=== PATIENT | male | born 1965 | race Two or more races ===

== ENCOUNTER 2019-09-09 10:33 | Emergency (ER) | payer MEDICAID, OTHER ==
[~2019-09-09] VITALS: Ht 165.1 cm; Wt 80.7 kg
[2019-09-09 11:33] LABS: Urine Bacteria NONE SEEN /hpf (None Seen); Urine Blood Negative /uL (Negative); Urine WBC <1 /hpf (0 - 3)
[2019-09-09 11:34] LABS: Basophils # (auto) 0 uL; Basophils % (auto) 0.6 % (0.0-2.0); Eosinophils # (auto) 0 uL; Eosinophils % (auto) 0.8 % (0.0-7.0); Hematocrit 45.3 % (41.0-53.0); Hemoglobin 15.5 g/dL (13.5-17.5); Lymphocytes # (auto) 1.8 uL; Mean Corpuscular Hemoglobin 30.8 pg (28.0-32.0); Mean Corpuscular Hgb Conc. 34.3 g/dL (32.0-36.0); Monocytes # (auto) 0.3 uL; Monocytes % (auto) 6.3 % (0.0-12.0); Neutrophils # (auto) 3.3 uL; Neutrophils % (auto) 59.3 % (37.0-80.0); Platelet Count (auto) 197 10^3/uL (140-450); Red Blood Cells 5.03 10^6/uL (4.5-5.90); Red Cell Distribution Width 13.9 % (11.8-14.3); White Blood Cell 5.6 10^3/uL (4.4-10.8)
[2019-09-09 11:48] LABS: Albumin 3.7 g/dL (3.4-5.0); Calcium 8.3 mg/dL (8.5-10.1); Potassium 4.1 mmol/L (3.5-5.1)
[2019-09-09 11:52] LABS: Bilirubin, Total 0.4 mg/dL (0.2-1.0); Total Protein 8.2 g/dL (6.4-8.2)
[2019-09-09] MEDS ORDERED: SODIUM CHLORIDE 0.9% 1,000 ML IV ONE (11:58)
[2019-09-09] MEDS ORDERED: InsuLIN REG 1unit/0.01ml Soln (100units/ml) IV ONE ×2 (12:00→15:30)
[2019-09-09 16:35] VITALS: BP 121/82
== END 2019-09-09 16:42 | disposition home or self-care (01) ==
LOC: ER 10:33
DX: E11.65 Type 2 diabetes mellitus with hyperglycemia (principal)
CPT/HCPCS: 36415; 80053; 81001; 82010; 82962; 85025; 96361; 96374; 99283; J1815; J7030

== ENCOUNTER 2019-11-05 14:42 | Emergency (ER) | payer MEDICAID ==
[~2019-11-05] VITALS: Ht 167.6 cm; Wt 81.6 kg
[2019-11-05 16:20] LABS: Urine Bacteria NONE SEEN /hpf (None Seen); Urine Blood Negative /uL (Negative); Urine Specific Gravity 1.034 (1.001-1.035); Urine WBC <1 /hpf (0 - 3)
[2019-11-05] MEDS ORDERED: InsuLIN REG 1unit/0.01ml Soln (100units/ml) IV ONE ×2 (16:30→19:00)
[2019-11-05 17:06] LABS: Basophils # (auto) 0.1 uL; Basophils % (auto) 0.9 % (0.0-2.0); Eosinophils # (auto) 0 uL; Eosinophils % (auto) 0.7 % (0.0-7.0); Hematocrit 47.2 % (41.0-53.0); Lymphocytes # (auto) 2.4 uL; Lymphocytes % (auto) 38.2 % (10.0-50.0); Mean Corpuscular Hemoglobin 30.3 pg (28.0-32.0); Mean Corpuscular Hgb Conc. 33.9 g/dL (32.0-36.0); Mean Corpuscular Volume 89.4 fL (80.0-100.0); Monocytes # (auto) 0.4 uL; Monocytes % (auto) 6.8 % (0.0-12.0); Neutrophils # (auto) 3.4 uL; Neutrophils % (auto) 53.4 % (37.0-80.0); Nucleated Red Blood Cells % 0.1 %; Platelet Count (auto) 197 10^3/uL (140-450); Red Blood Cells 5.28 10^6/uL (4.5-5.90); Red Cell Distribution Width 14.1 % (11.8-14.3); White Blood Cell 6.3 10^3/uL (4.4-10.8)
[2019-11-05 17:27] LABS: Alanine Aminotransferase 43 U/L (16-61); Albumin 3.8 g/dL (3.4-5.0); Anion Gap 10 (5-15); Aspartate Aminotransferase 26 U/L (15-37); BUN/Creatinine Ratio 14.2; Blood Urea Nitrogen 16 mg/dL (7-18); Calcium 8.9 mg/dL (8.5-10.1); Carbon Dioxide 25 mmol/L (21-32); Chloride 99 mmol/L (98-107); GFR African American 87 mL/min; GFR Non-African American 72 mL/min; Glucose 381 mg/dL (74-106); Potassium 4.1 mmol/L (3.5-5.1); Sodium 134 mmol/L (136-145)
[2019-11-05 17:30] LABS: Alkaline Phosphatase 168 U/L (45-117); Bilirubin, Total 0.3 mg/dL (0.2-1.0); Total Protein 8.6 g/dL (6.4-8.2)
[2019-11-05] MEDS: SODIUM CHLORIDE 0.9% 1,000 ML IV ONE (21:55)
[2019-11-05] MEDS: InsuLIN REG 1unit/0.01ml Soln (100units/ml) IV ONE (21:55)
[2019-11-05 23:00] VITALS: BP 130/82
== END 2019-11-05 23:34 | disposition home or self-care (01) ==
LOC: ER 14:42
DX: E11.65 Type 2 diabetes mellitus with hyperglycemia (principal); N48.1 Balanitis
CPT/HCPCS: 36415; 80053; 81001; 82010; 82962; 85025; 96361; 96374; 99283; J1815

== ENCOUNTER 2021-03-11 07:55 | Emergency (ER) | payer MEDICAID ==
[~2021-03-11] VITALS: Ht 167.6 cm; Wt 77.1 kg
[2021-03-11] MEDS ORDERED: KETOROLAC TROMETH 60MG/2ML VIAL IM ONE (09:45)
[2021-03-11 09:52] VITALS: BP 135/83
== END 2021-03-11 09:53 | disposition home or self-care (01) ==
LOC: ER 07:55
DX: M47.892 Other spondylosis, cervical region (principal); M54.12 Radiculopathy, cervical region; E11.9 Type 2 diabetes mellitus without complications
CPT/HCPCS: 72040; 93005; 96372; 99283; J1885

== ENCOUNTER 2024-08-05 10:00 | Emergency (ER) | payer MEDICAID ==
[~2024-08-05] VITALS: Ht 175.3 cm; Wt 73.0 kg
[2024-08-05 10:30] VITALS: PULSE 105; RESP 17; O2SAT 98
[2024-08-05] MEDS: cloNIDine HCL 0.1 MG TAB PO ONE (10:33)
[2024-08-05 11:00] LABS: Basophils # (auto) 0.1 10 ^3/uL (0-0.2); Basophils % (auto) 0.8 % (0.0-2.0); Eosinophils # (auto) 0.1 10 ^3/uL (0-0.8); Eosinophils % (auto) 1.8 % (0.0-7.0); Hematocrit 34.4 % (41.0-53.0); Hemoglobin 11.6 g/dL (13.5-17.5); Lymphocytes # (auto) 1.2 10 ^3/uL (0.4-5.4); Lymphocytes % (auto) 18.7 % (10.0-50.0); Mean Corpuscular Hemoglobin 29.7 pg (28.0-32.0); Mean Corpuscular Hgb Conc. 33.7 g/dL (32.0-36.0); Mean Corpuscular Volume 88.3 fL (80.0-100.0); Monocytes # (auto) 0.5 10 ^3/uL (0-1.3); Monocytes % (auto) 7.7 % (0.0-12.0); Neutrophils # (auto) 4.6 10 ^3/uL (1.6-8.6); Platelet Count (auto) 280 10^3/uL (140-450); Red Blood Cells 3.89 10^6/uL (4.5-5.90); Red Cell Distribution Width 14.4 % (11.8-14.3); White Blood Cell 6.5 10^3/uL (4.4-10.8)
[2024-08-05 11:10] LABS: Alanine Aminotransferase 29 U/L (7-40); Albumin 3.8 g/dL (3.2-4.8); Alkaline Phosphatase 112 U/L (46-116); Anion Gap 7 (5-15); Aspartate Aminotransferase 31 U/L (13-40); BUN/Creatinine Ratio 16.8 (10.0-20.0); Blood Urea Nitrogen 32 mg/dL (9-23); Calcium 9.7 mg/dL (8.7-10.4); Carbon Dioxide 27 mmol/L (20-31); Chloride 105 mmol/L (98-107); Glucose 113 mg/dL (74-106); Potassium 4.9 mmol/L (3.5-5.1); Sodium 139 mmol/L (136-145)
[2024-08-05 11:11] LABS: Bilirubin, Total 0.4 mg/dL (0.2-1.0)
[2024-08-05 11:21] VITALS: TEMP 98
[2024-08-05 13:08] LABS: Urine Bacteria None Seen /hpf (None Seen)
[2024-08-05 13:26] LABS: Urine Blood 2+ /uL (Negative); Urine Clarity Clear (Clear); Urine Color Light-Yellow (Yellow); Urine Hyaline Cast FEW /lpf (0 - 2); Urine Protein, UAD 3+ (Negative); Urine Specific Gravity 1.017 (1.001-1.035); Urine Urobilinogen Normal (Negative); Urine WBC <1 /hpf (0 - 3); Urine pH 6.5 (5.0-9.0)
[2024-08-05] MEDS: ACETAMINOPHEN 325 MG TAB PO ONE (13:27)
[2024-08-05 14:08] VITALS: PULSE 72; RESP 15; O2SAT 96
[2024-08-05 16:43] VITALS: BP 147/88; PULSE 77; RESP 14; O2SAT 98
== END 2024-08-05 16:42 | disposition home or self-care (01) ==
LOC: ER 10:00
DX: M54.2 Cervicalgia (principal); R60.0 Localized edema; M79.602 Pain in left arm; M79.89 Other specified soft tissue disorders; E11.9 Type 2 diabetes mellitus without complications; M19.90 Unspecified osteoarthritis, unspecified site; R06.02 Shortness of breath
CPT/HCPCS: 36415; 71045; 80053; 81001; 82962; 83880; 84484; 85025; 93005; 93971

== ENCOUNTER 2024-08-16 15:18 | Inpatient (IN) | payer MEDICAID ==
[~2024-08-16] VITALS: Ht 165.1 cm; Wt 67.9 kg
[~2024-08-16 15:18] MED LIST: AMLO1TAB23 PO; CARB25TA79 PO; DAPA1TAB4 PO; ERGO1CAP12 PO; LIDO1PAD55 TOP; SELE5TAB8 PO; SEMA2INJ3 SC; SITA50TA PO
--- NOTE | 2024-08-16 15:43 | ED.PDOC ---
History of Present Illness HPI Comments 59 y.o male with PMH of DM and HTN, presents to the ED for a chief complaint of generalized weakness associated with chills and nausea that started 2-3 weeks ago. Patient reports for the past 3 nights, symptoms worsened, has not been able to sleep and is only able to move his left arm. Patient states he was seen at this ED 2 weeks ago for same complaint, but then had leg and foot swelling which was medicated for. Patient at this time denies any swelling, chest pain SOB, vomiting. Time Seen by MD: 15:31 Primary Care Provider: UNKNOWN Reviewed Notes: Nurses Notes, Medications, Allergies Allergies: Coded Allergies: NO KNOWN ALLERGIES (Unverified , 09/09/19) Information Source: Patient, Relative Mode of Arrival: Wheelchair Severity: Moderate Timing: Weeks Duration: Since onset Past Medical History PAST MEDICAL HISTORY: Arthritis, DM Surgical History: Denies all surgeries Family History Family History: Reviewed,noncontributory to illness, Family hx of DM Social History Smoker: Non-Smoker Alcohol: Denies ETOH Use Drugs: Denies Drug Use Lives In: Home Constitutional: reports: chills, weakness; denies: diaphoresis, fatigue, fever, malaise, sweats, others EENTM: denies: blurred vision, double vision, ear bleeding, ear discharge, ear drainage, ear pain, ear ringing, eye pain, eye redness, hearing loss, mouth pain, mouth swelling, nasal discharge, nose bleeding, nose congestion, nose pain, photophobia, tearing, throat pain, throat swelling, voice changes, others Cardiovascular: denies: chest pain, dizzy spells, diaphoresis, Dyspnea on exertion, edema, irregular heart beat, left arm pain, lightheadedness, palpitations, PND, syncope, others Gastrointestinal: reports: nausea; denies: abdomen distended, abdominal pain, blood streaked bowels, constipated, diarrhea, dysphagia, difficulty swallowing, hematemesis, melena, poor appetite, poor fluid intake, rectal bleeding, rectal pain, vomiting, others Genitourinary: denies: burning, dysuria, flank pain, frequency, hematuria, incontinence, penile discharge, penile sore, pain, testicle pain, testicle swelling, urgency, others Neurological: denies: dizziness, fainting, headache, left sided numbness, left sided weakness, numbness, paresthesia, pre-existing deficit, right sided numbness, right sided weakness, seizure, speech problems, tingling, tremors, weakness, others Musculoskeletal: denies: back pain, gout, joint pain, joint swelling, muscle pain, muscle stiffness, neck pain, others Integumetry: denies: bruises, change in color, change in hair/nails, dryness, laceration, lesions, lumps, rash, wounds, others Allergic/Immunocompromised: denies: Difficulty Healing, Frequent Infections, Hives, Itching, others Hematologic/Lymphatic: denies: anemia, blood clots, easy bleeding, easy bruising, swollen glands, others Endocrine: denies: excessive hunger, excessive sweating, excessive thirst, excessive urination, flushing, intolerance to cold, intolerance to heat, u nexplained weight gain, unexplained weight loss, others Psychiatric: denies: anxiety, bipolar disorder, depression, hopeless, panic disorder, schizophrenia, sleepless, suicidal, others All Other Systems: Reviewed and Negative Physical Exam General Appearance: Moderate Distress HEENT: Normal ENT Inspection, Pharynx Normal, TMs Normal Neck: Full Range of Motion, Non-Tender, Normal, Normal Inspection Respiratory: Chest Non-Tender, Lungs Clear, No Accessory Muscle Use, No Respiratory Distress, Normal Breath Sounds Cardiovascular: No Edema, No JVD, No Murmur, No Gallop, Normal Peripheral Pulses, Regular Rate/Rhythm Breast Exam: Deferred Gastrointestinal: No Organomegaly, Non Tender, No Pulsatile Mass, Normal Bowel Sounds, Soft Genitalia: Deferred Pelvic: Deferred Rectal: Deferred Extremities: No calf tenderness, Normal capillary refill, Normal inspection, Normal range of motion, Non-tender, No pedal edema Musculoskeletal : Apperance: Normal Neurologic: Alert, gut cleaner II-XII nml as Tested, No Motor Deficits, Normal Affect, Normal Mood, No Sensory Deficits Cerebellar Function: Normal Reflexes: Normal Skin: Dry, Normal Color, Warm Lymphatic: No Adenopathy Was a procedure done? Was a procedure done?: No Differential Dx Considerations may include: Dehydration, electrolyte imbalance X-Ray, Labs, Meds, VS Vital Signs Date Time Temp Pulse Resp B/P (MAP) Pulse Ox O2 Delivery O2 Flow Rate FiO2 08/16/24 18:52 83 16 166/93 08/16/24 18:51 83 16 166/93 (117) 98 11/8/24 16:47 98.8 88 17 146/84 (104) 98 98.8 08/16/24 16:47 88 18 98 Room Air 08/16/24 16:14 98.9 90 18 159/97 (117) 98 98.9 08/16/24 16:14 98.9 90 20 159/97 (117) 98 Lab Test 08/16/24 17:28 08/16/24 16:59 08/16/24 16:35 Range/Units Urine Color Light-yellow Yellow Urine Clarity Clear Clear Urine pH 6.0 5.0-9.0 Urine Specific [place] 1.016 1.001-1.035 Urine Protein 3+ H Negative Urine Ketones Negative Negative Urine Blood 2+ H Negative /uL Urine Nitrite Negative Negative Urine Bilirubin Negative Negative Urine Urobilinogen Normal Negative mg/dL Urine Leukocyte Esterase Negative Negative /uL Urine RBC 3 0 - 3 /hpf Urine WBC 1 0 - 3 /hpf Urine Squamous Epithelial Cells Few <5 /hpf Urine Bacteria None seen None Seen /hpf Urine Glucose 3+ H Normal mg/dL SARS-CoV-2 Antigen (Rapid) Negative NEGATIVE White Blood Count 5.3 4.4-10.8 10^3/uL Red Blood Count 3.63 L 4.5-5.90 10^6/uL Hemoglobin 10.9 L 13.5-17.5 g/dL Hematocrit 31.7 L 41.0-53.0 % Mean Corpuscular Volume 87.5 80.0-100.0 fL Mean Corpuscular Hemoglobin 30.2 28.0-32.0 pg Mean Corpuscular Hemoglobin Concent 34.5 32.0-36.0 g/dL Red Cell Distribution Width 14.5 H 11.8-14.3 % Platelet Count 279 140-450 10^3/uL Mean Platelet Volume 6.7 L 6.9-10.8 fL Neutrophils (%) (Auto) 63.3 37.0-80.0 % Lymphocytes (%) (Auto) 23.6 10.0-50.0 % Monocytes (%) (Auto) 10.5 0.0-12.0 % Eosinophils (%) (Auto) 1.8 0.0-7.0 % Basophils (%) (Auto) 0.8 0.0-2.0 % Neutrophils # (Auto) 3.4 1.6-8.6 10 ^3/uL Lymphocytes # (Auto) 1.3 0.4-5.4 10 ^3/uL Monocytes # (Auto) 0.6 0-1.3 10 ^3/uL Eosinophils # (Auto) 0.1 0-0.8 10 ^3/uL Basophils # (Auto) 0 0-0.2 10 ^3/uL Nucleated Red Blood Cells 0.1 % Sodium Level 137 136-145 mmol/L Potassium Level 4.3 3.5-5.1 mmol/L Chloride Level 103 98-107 mmol/L Carbon Dioxide Level 29 20-31 mmol/L Anion Gap 5 5-15 Blood Urea Nitrogen 36 H 9-23 mg/dL Creatinine 2.16 H 0.700-1.30 mg/dL Glomerular Filtration Rate Calc 34 >90 mL/min BUN/Creatinine Ratio 16.7 10.0-20.0 Serum Glucose 192 H 74-106 mg/dL Lactic Acid Level 0.9 0.4-2.0 mmol/L Calcium Level 9.2 8.7-10.4 mg/dL Current Medications Medications (Trade) Dose Ordered Sig/Nicol Route Start Time Stop Time Status Last Admin Ketorolac Tromethamine (Toradol Injection) 30 mg ONCE ONCE IV 08/16/24 16:15 08/16/24 16:16 DC 08/16/24 16:47 Ondansetron HCl (Zofran) 4 mg ONCE ONCE IV 08/16/24 16:15 08/16/24 16:16 DC 08/16/24 16:48 Morphine Sulfate 4 mg ONCE ONCE IV 08/16/24 18:45 08/16/24 18:46 DC 08/16/24 18:52 IV Hep-Lock was established The patient was given ketorolac 30 mg IV push for the pain The patient states that the pain has been persistent so the patient was given morphine 4 mg IV push The patient was also given Zofran 4 mg IV push The chemistry panel shows a BUN of 36 and the creatinine is 3.16 The lactic acid level is within normal limits The CBC shows anemia with a hemoglobin of 10.9 The urine test is negative The patient was being admitted at this time Images Reviewed?: Images reviewed and evaluated by me Time of 1ST Reevaluation: 15:40 Reevaluation 1ST: Unchanged Patient Education/Counseling: Diagnosis, Treatment, Prognosis Family Education/Counseling: Diagnosis, Treatment, Prognosis Departure 1 Departure Time of Disposition: 19:13 Impression: Primary Impression: Generalized weakness Disposition: 09 ADMITTED INPATIENT Admit to: Tele Condition: Fair Critical Care Note Critical Care Time?: No Stability Stability form required: Yes Unstable for transfer: Telemetry monitoring (Telemetry monitoring required), ED Physician Assesment (Clinical assesment) I personally scribed for RIAN AGUILAR MD ([email or web address]) on 08/16/24 at 15:43. Electronically submitted by Monique Rizo ([facility]). RIAN AGUILAR MD Aug 16, 2024 15:43
[2024-08-16] MEDS: KETOROLAC TROMETH 30 MG/ML 1ML VIAL IV ONE (16:47)
--- NOTE | 2024-08-16 16:47 | DVH ---
Exam: CT CT AB PEL WO CON-NO ORAL OR IV History: FLANK PAIN , NAUSEA Comparison Study: None available at time of dictation. TECHNIQUE: Multidetector CT of the abdomen was performed from lung bases to pubic symphysis. Imaging was performed without IV contrast. Axial, coronal and sagittal multiplanar reformats were obtained fr om the axial data set by the technologist. Radiation Dose Information: CT Dose: CTDI volume is 7.02 mGy. Dose-length product is 356.94 mGy*cm FINDINGS: Evaluation of solid organs is limited due to lack of intravenous contrast use. Findings: Lung Bases: No acute or significant lung base finding. Normal heart size. No pleural or pericardial effusion. Liver: The liver is normal in size. No focal lesions. Gallbladder and Biliary Tree: Unremarkable Spleen: Unremarkable Pancreas: The pancreas is grossly normal in appearance. Adrenal Glands: Unremarkable Kidneys: Kidneys are grossly normal without calculi or hydronephrosis. Bladder: Grossly unremarkable for degree of distention. Bowel: The stomach is grossly normal in appearance. Small bowel and colon are normal in caliber and d istribution. The appendix is not visualized; however, no secondary findings of acute appendicitis id entified. Ascites: Absent Lymphadenopathy: No mesenteric, retroperitoneal or periportal lymphadenopathy. Abdominal Wall and Mesentery: Unremarkable. Vasculature: The visualized abdominal aorta is normal in size and caliber. Evaluation of abdominal a nd pelvic vessels is limited due to lack of intravenous contrast. Pelvic Organs: Unremarkable Musculoskeletal: No aggressive focal bony lesions, acute fractures or dislocation. Soft tissues: Unremarkable IMPRESSION: 1. No findings to suggest bowel obstruction. 2. No nephrolithiasis or hydronephrosis. 3. No bladder calculi. Radiation optimization: All CT scans at this facility use at least one of these dose optimization te chniques: automated exposure control mA and/or kV adjustment per patient size (includes targeted exa ms where dose is matched to clinical indication) or iterative reconstruction. HS:Y
[2024-08-16] MEDS: ONDANSETRON HCL 4 MG/2 ML VIAL IV ONE (16:48)
[2024-08-16 17:01] LABS: Basophils # (auto) 0 10 ^3/uL (0-0.2); Basophils % (auto) 0.8 % (0.0-2.0); Eosinophils # (auto) 0.1 10 ^3/uL (0-0.8); Eosinophils % (auto) 1.8 % (0.0-7.0); Hematocrit 31.7 % (41.0-53.0); Hemoglobin 10.9 g/dL (13.5-17.5); Lymphocytes # (auto) 1.3 10 ^3/uL (0.4-5.4); Lymphocytes % (auto) 23.6 % (10.0-50.0); Mean Corpuscular Hemoglobin 30.2 pg (28.0-32.0); Mean Corpuscular Hgb Conc. 34.5 g/dL (32.0-36.0); Mean Corpuscular Volume 87.5 fL (80.0-100.0); Monocytes # (auto) 0.6 10 ^3/uL (0-1.3); Monocytes % (auto) 10.5 % (0.0-12.0); Neutrophils # (auto) 3.4 10 ^3/uL (1.6-8.6); Neutrophils % (auto) 63.3 % (37.0-80.0); Nucleated Red Blood Cells % 0.1 %; Platelet Count (auto) 279 10^3/uL (140-450); Red Blood Cells 3.63 10^6/uL (4.5-5.90); Red Cell Distribution Width 14.5 % (11.8-14.3); White Blood Cell 5.3 10^3/uL (4.4-10.8)
[2024-08-16 17:11] LABS: Chloride 103 mmol/L (98-107); Potassium 4.3 mmol/L (3.5-5.1); Sodium 137 mmol/L (136-145)
[2024-08-16 17:12] LABS: Anion Gap 5 (5-15); Carbon Dioxide 29 mmol/L (20-31)
[2024-08-16 17:13] LABS: Calcium 9.2 mg/dL (8.7-10.4)
[2024-08-16 17:17] LABS: Glucose 192 mg/dL (74-106)
[2024-08-16 17:18] LABS: BUN/Creatinine Ratio 16.7 (10.0-20.0); Blood Urea Nitrogen 36 mg/dL (9-23)
[2024-08-16 17:50] LABS: Urine Bacteria None Seen /hpf (None Seen)
[2024-08-16 18:07] LABS: Urine Blood 2+ /uL (Negative); Urine Clarity Clear (Clear); Urine Color Light-Yellow (Yellow); Urine Protein, UAD 3+ (Negative); Urine Specific Gravity 1.016 (1.001-1.035); Urine Urobilinogen Normal (Negative); Urine WBC 1 /hpf (0 - 3)
[2024-08-16 18:11] LABS: COVID19 ANTIGEN SOFIA FIA NEGATIVE (NEGATIVE)
[2024-08-16] MEDS: MORPHINE SULFATE 4 MG/ML SYR/VIAL IV ONE (18:52)
[2024-08-16 20:15] VITALS: BP 140/86; PULSE 75; RESP 17; TEMP 98.2; O2SAT 98
[2024-08-16] MEDS ORDERED: NITROGLYCERIN 0.4 MG SL TAB SL PRN (21:00)
[2024-08-16] MEDS ORDERED: MORPHINE SULFATE INJ 2 MG/ml SYRG IV PRN (21:00)
[2024-08-16] MEDS ORDERED: ONDANSETRON HCL 4 MG/2 ML VIAL IV PRN (21:00)
--- NOTE | 2024-08-16 21:44 | DVHHPRES ---
History of Present Illness Resident Creating Document: MEGHANA LOFTON RESIDENT History of Present Illness This is a 59 years old male with a past medical history of type 2 diabetes mellitus, hypertension, parkinsonism presented to the ED with a complaint of generalized weakness, neck pain and shoulder pain for last 3 weeks. Patient reports for the past 3 nights, symptoms worsened, has not been able to sleep and is only able to move his left arm and also complaining of chills and low-grade fever. The patient complains of bilateral leg swelling 1 week before this admission and took medications which resolve the swelling. He denies chest pain, shortness of breath, dizziness, diaphoresis, abdominal pain, nausea, vomiting or any change in bowel and bladder habit. Cardiovascular: HTN, hyperipidemia Past Medical History Hypertension, hyperlipidemia and parkinsonism Past Surgical History None Family History: None Smoke: No ALCOHOL: none Drugs: None Lives: with Family Review of Systems Review of Systems Review of system: Constitutional: No: Fever, Chills, Sweats, Weakness, Malaise, Other Eyes: No: Pain, Vision change, Conjunctivae inflammation, Eyelid inflammation, Other, Redness ENT: No: Ear pain, Ear discharge, Nose pain, Nose discharge, Nose congestion, Mouth pain, Mouth swelling, Throat pain, Throat swelling, Other Respiratory: Shortness of breath, improving No: Cough, Dry,Wheezing, Hemoptysis, Pleuritic Pain, Sputum, Wheezing, Other Cardiovascular: No: Chest Pain, Palpitations, Orthopnea, Paroxysmal Noc. Dyspnea, Edema, Lt Headedness, Other Gastrointestinal: No: Nausea, Vomiting, Abdominal Pain, Diarrhea, Constipation, Melena, Hematochezia, Other Musculoskeletal: No: other, neck pain, shoulder pain, arm pain, back pain, hand pain, leg pain, foot pain Neurological:; No: Weakness, Numbness, Incoordination, Change in speech, Confusion, Seizures Constitutional: Yes: Fever, Chills, Sweats, Weakness, Malaise, Other Respiratory: Cough Allergies: Coded Allergies: NO KNOWN ALLERGIES (Unverified , 09/09/19) Medications Current Medications Medications Dose Ordered Sig/Nicol Route Start Time Stop Time Status Last Admin Dose Admin Sodium Chloride 10 ml Q8HR IV 08/16/24 22:00 Acetaminophen 325 mg Q4HP PRN PO 08/16/24 21:00 Ondansetron HCl 4 mg Q4HP PRN IV 08/16/24 21:00 Nitroglycerin 0.4 mg Q5MINP PRN SL 08/16/24 21:00 Morphine Sulfate 2 mg Q30M PRN IV 08/16/24 21:00 Carbidopa/Levodopa 1 tab TID PO 08/16/24 22:00 UNV Amlodipine Besylate 10 mg DAILY PO 08/17/24 10:00 UNV Exam Vital Signs Vital Signs Date Time Temp Pulse Resp B/P (MAP) Pulse Ox O2 Delivery O2 Flow Rate FiO2 08/16/24 20:15 75 17 98 Room Air* 0 21 08/16/24 20:15 98.2 140/86 (104) 98.2 Exam Physical examination: General Appearance: Alert, Oriented X3, Cooperative, No acute distress HEENT: Atraumatic, PERRLA, EOMI, Mucous membrane moist/pink Respiratory: Clear to auscultation, Normal air movement Cardiovascular: Regular rate, Normal S1, Normal S2, No murmurs, no chest wall tenderness Abdominal: Normal bowel sounds, Soft, No tenderness, No hepatospenomegaly, No masses Extremities: Bilateral tremor, rigidity, pedal edema +, No clubbing, No cyanosis, Normal pulses, No tenderness/swelling Skin: No rashes, No breakdown, No significant lesion Neuro: Normal speech, Strength at 5/5 X4 ext, Normal tone, Sensation intact, grossly intact cranial nerves Psych/Mental Status: Mental status NL, Mood NL Labs/Xrays Labs Test 08/16/24 17:28 08/16/24 16:59 08/16/24 16:35 Range/Units Urine Color Light-yellow Yellow Urine Clarity Clear Clear Urine pH 6.0 5.0-9.0 Urine Specific [place] 1.016 1.001-1.035 Urine Protein 3+ H Negative Urine Ketones Negative Negative Urine Blood 2+ H Negative /uL Urine Nitrite Negative Negative Urine Bilirubin Negative Negative Urine Urobilinogen Normal Negative mg/dL Urine Leukocyte Esterase Negative Negative /uL Urine RBC 3 0 - 3 /hpf Urine WBC 1 0 - 3 /hpf Urine Squamous Epithelial Cells Few <5 /hpf Urine Bacteria None seen None Seen /hpf Urine Glucose 3+ H Normal mg/dL SARS-CoV-2 Antigen (Rapid) Negative NEGATIVE White Blood Count 5.3 4.4-10.8 10^3/uL Red Blood Count 3.63 L 4.5-5.90 10^6/uL Hemoglobin 10.9 L 13.5-17.5 g/dL Hematocrit 31.7 L 41.0-53.0 % Mean Corpuscular Volume 87.5 80.0-100.0 fL Mean Corpuscular Hemoglobin 30.2 28.0-32.0 pg Mean Corpuscular Hemoglobin Concent 34.5 32.0-36.0 g/dL Red Cell Distribution Width 14.5 H 11.8-14.3 % Platelet Count 279 140-450 10^3/uL Mean Platelet Volume 6.7 L 6.9-10.8 fL Neutrophils (%) (Auto) 63.3 37.0-80.0 % Lymphocytes (%) (Auto) 23.6 10.0-50.0 % Monocytes (%) (Auto) 10.5 0.0-12.0 % Eosinophils (%) (Auto) 1.8 0.0-7.0 % Basophils (%) (Auto) 0.8 0.0-2.0 % Neutrophils # (Auto) 3.4 1.6-8.6 10 ^3/uL Lymphocytes # (Auto) 1.3 0.4-5.4 10 ^3/uL Monocytes # (Auto) 0.6 0-1.3 10 ^3/uL Eosinophils # (Auto) 0.1 0-0.8 10 ^3/uL Basophils # (Auto) 0 0-0.2 10 ^3/uL Nucleated Red Blood Cells 0.1 % Sodium Level 137 136-145 mmol/L Potassium Level 4.3 3.5-5.1 mmol/L Chloride Level 103 98-107 mmol/L Carbon Dioxide Level 29 20-31 mmol/L Anion Gap 5 5-15 Blood Urea Nitrogen 36 H 9-23 mg/dL Creatinine 2.16 H 0.700-1.30 mg/dL Glomerular Filtration Rate Calc 34 >90 mL/min BUN/Creatinine Ratio 16.7 10.0-20.0 Serum Glucose 192 H 74-106 mg/dL Lactic Acid Level 0.9 0.4-2.0 mmol/L Calcium Level 9.2 8.7-10.4 mg/dL Assessment/Plan Assessment/Plan Assessment and plan: # Unspecified generalized weakness # Possible CKD stage 3 to diabetic nephropathy with questionable hematuria - Ordered U/S of the kidney - strict I&O - Avoid nephrotoxic medication - Consulted Nephrology. # Type 2 diabetes mellitus, hemoglobin A1c of 6.5 - Mild sliding scale of insulin # Hypertensive heart disease with possible chronic diastolic heart failure - [id number] mg p.o. daily -IV labetalol 5 mg q.2h p.r.n. - Ordered echo # History of parkinsonism - Continue home meds - Consulted Neurology # DVT prophylaxis - Heparin 5000 units sc b.i.d. Goal of care discussed with the patient for more than 20 minutes full code Plan of treatment discussed with Dr. Bennett Plan discussed with: Patient, Other My Orders Orders - MEGHANA LOFTON RESIDENT Procedure Category Date Status Time Code Status CODE 08/16/24 Transmitted 21:00 Renal DIET 08/17/24 Transmitted Standard(2gna,3gk,Lopho) Breakfast Sodium Chloride Lock PHA 08/16/24 In Process (Saline Lock Ns) 22:00 Oxygen Per Hour RT 08/16/24 Transmitted 21:00 Acetaminophen Tablet PHA 08/16/24 In Process (Tylenol Tablet) 21:00 Ondansetron Hcl PHA 08/16/24 In Process (Zofran) 21:00 Complete Blood Count LAB 08/17/24 Verified 04:00 Comprehensive LAB 08/17/24 Verified Metabolic Panel 04:00 Pt Request For Service PT 08/16/24 Logged 21:00 Echo 2d Mode Cardiac US 08/16/24 Logged DOP 21:00 Nitroglycerin PHA 08/16/24 In Process Sublingual (Ntrostat 21:00 Morphine Sulfate PHA 08/16/24 In Process Injection 21:00 Oxygen By Nasal RT 08/16/24 Transmitted Cannula 21:00 Stat Ekg For Chest BANDAR 08/16/24 In Process Pain 21:00 Notify Of Changes BANDAR 08/16/24 In Process From Base 21:00 Card Grinder Helper For BANDAR 08/16/24 In Process 24 Hours 21:00 Emergency Dysrhythmia BANDAR 08/16/24 In Process Protocol 21:00 Rhythm Strips Once BANDAR 08/16/24 In Process Every Shift 21:00 Hemoglobin A1c LAB 08/16/24 In Process 21:16 Thyroid Stimulating LAB 08/16/24 In Process Hormone 21:16 Vitamin B12 LAB 08/16/24 In Process 21:16 Vitamin D, 25-Hydroxy LAB 11/8/24 In Process 21:16 Admit ADMIT 08/16/24 Transmitted 21:30 Carbidopa W Levodopa PHA 08/16/24 Logged 25/100mg (Sinemet 2 22:00 Amlodipine Tablet PHA 08/17/24 Logged (Norvasc Tablet) 10:00 B-Type Natriuretic LAB 08/16/24 In Process Peptide 21:35 Drug Screen LAB 08/16/24 Logged 21:40 MEGHANA LOFTON RESIDENT Aug 16, 2024 21:44
[2024-08-16] MEDS: SODIUM CHLOR 0.9% PF (SALINE LOCK) 10ML VIAL/SYR IV SCH (22:00)
[2024-08-16] MEDS: CARBIDOPA W LEVODOPA 25/100mg TABLET PO SCH (22:34)
[2024-08-16] MEDS ORDERED: DEXTROSE (50%) 50ML SYRG IV PRN (22:45)
[2024-08-16 22:55] LABS: INR 1.03 (0.9-1.15); Partial Thromboplastin Time 27.6 SEC (24.5-34.5); Prothrombin Time 10.9 sec (9.3-11.8)
[2024-08-16 23:00] VITALS: BP 152/81; PULSE 78; RESP 17; TEMP 97.9; O2SAT 98
[2024-08-16 23:17] VITALS: PULSE 82; RESP 18; O2SAT 97
--- NOTE | 2024-08-16 23:21 | DVH ---
XY CHEST PORTABLE, HISTORY: chest pain COMPARISON: XY CHEST PORTABLE on DOS: 08/05/24 XY CHEST PORTABLE on DOS: 08/05/24 TECHNICAL DATA: 1 view of the chest was obtained. FINDINGS: Lines and tubes: None Cardiomediastinal silhouette: normal Pulmonary vasculature: normal Lung expansion: low Lung airspace: normal Lung interstitium: normal Pleura: normal Pneumothorax: no Bones: Unremarkable Other: no IMPRESSION: No acute intrathoracic abnormality.
[2024-08-16] MEDS: cloNIDine HCL 0.1 MG TAB PO ONE (23:39)
[2024-08-17] VITALS (9 sets, daily range): BP systolic 117–172; BP diastolic 50–92; PULSE 61–105; RESP 16–20; TEMP 97.7–98.7; O2SAT 94–99
--- NOTE | 2024-08-17 03:22 | DVH ---
Examination: MELANIE CLINICAL INDICATION: ;Possible CKD DIREAS;Reason for Exam: Portable;Portable;Modes of Transportation DITRANS2;How is patie nt transported? COMPARISON: None. TECHNIQUE: Transabdominal ultrasound was performed. FINDINGS: Right kidney measures 10.4 cm in length. Left kidney measures 9.24 cm in length. Both kidneys demonstrate normal morphology and cortical echogenicity, with no evidence of stones, mas ses or hydronephrosis. The urinary bladder is partially distended well and smooth in outline. No obvious mass or calculus within the urinary bladder. Pre-void volume is 89.64 mL. IMPRESSION: 1. No significant abnormality identified. 2. No renal or ureteric calculus or hydronephrosis. Electronically Signed 08/17/2024 03:14 Sangita Dong
[2024-08-17] MEDS ORDERED: ATE50T PO (05:38)
[2024-08-17] MEDS: InsuLIN REG 1unit/0.01ml Soln (100units/ml) SC SCH ×2 (05:57→16:00)
[2024-08-17] MEDS: ACCU-CHEK COMFORT CURVE STRIP VI SCH ×2 (05:57→17:24)
[2024-08-17 06:20] LABS: Basophils # (auto) 0 10 ^3/uL (0-0.2); Eosinophils # (auto) 0.2 10 ^3/uL (0-0.8); Eosinophils % (auto) 4.6 % (0.0-7.0); Hematocrit 30.5 % (41.0-53.0); Hemoglobin 10.4 g/dL (13.5-17.5); Lymphocytes # (auto) 1.6 10 ^3/uL (0.4-5.4); Mean Corpuscular Hgb Conc. 34.2 g/dL (32.0-36.0); Mean Corpuscular Volume 87.8 fL (80.0-100.0); Monocytes # (auto) 0.6 10 ^3/uL (0-1.3); Monocytes % (auto) 11.4 % (0.0-12.0); Neutrophils # (auto) 2.5 10 ^3/uL (1.6-8.6); Platelet Count (auto) 237 10^3/uL (140-450); Red Blood Cells 3.47 10^6/uL (4.5-5.90); Red Cell Distribution Width 14.6 % (11.8-14.3); White Blood Cell 4.9 10^3/uL (4.4-10.8)
[2024-08-17 06:35] LABS: Albumin 3.2 g/dL (3.2-4.8); Alkaline Phosphatase 77 U/L (46-116); Anion Gap 7 (5-15); Aspartate Aminotransferase 29 U/L (13-40); BUN/Creatinine Ratio 18.1 (10.0-20.0); Blood Urea Nitrogen 39 mg/dL (9-23); Calcium 8.9 mg/dL (8.7-10.4); Carbon Dioxide 28 mmol/L (20-31); Chloride 105 mmol/L (98-107); Glucose 113 mg/dL (74-106); Potassium 4.1 mmol/L (3.5-5.1); Sodium 140 mmol/L (136-145)
[2024-08-17 06:36] LABS: Bilirubin, Total 0.4 mg/dL (0.2-1.0); Total Protein 5.5 g/dL (5.7-8.2)
[2024-08-17 06:38] LABS: Alanine Aminotransferase < 9 U/L (7-40)
[2024-08-17] MEDS: amLODIPine BESYLATE 5 MG TAB PO SCH (08:36)
[2024-08-17] MEDS: HEPARIN SODIUM (PORCINE) 5000 UNITS/ML 1ML VIAL SC SCH (08:37)
[2024-08-17] MEDS: ACETAMINOPHEN 325 MG TAB PO PRN (08:50)
[2024-08-17] MEDS: LABETALOL HCL 20 MG/4 ML VL IV PRN (08:51)
--- NOTE | 2024-08-17 10:47 | DVH ---
EXAM: CT STROKE CTH HISTORY: Possible stroke. COMPARISON: None TECHNIQUE: Axial images were obtained and reformatted in coronal and sagittal planes. All CT scans at this medical facility are performed using dose modulation techniques as appropriate t o a performed exam including the following: Automated exposure control was utilized; adjustment of th e MA and/or KV according to patient size; and use of iterative reconstruction technique. CT Dose: CTDI volume is 64.39 mGy. Dose-length product is 1031.94 mGy*cm FINDINGS: Supratentorial Region: No evidence for large acute territorial ischemia. No intracranial hemorrhage is noted. Posterior Fossa: No acute abnormality. Brainstem: Unremarkable. Sellar/Suprasellar Region: Unremarkable. Ventricles, Cisterns, Sulci: Age-appropriate. Orbits: Unremarkable. Paranasal Sinuses: Unremarkable. Mastoid Air Cells: Unremarkable. Vasculature: Unremarkable. Bones/Soft Tissues: No acute abnormality. Other: None. IMPRESSION: 1. No acute intracranial process. The nurse in charge of the patient, Mildred was notified of findings on 08/17/2024 at approximately 10:40 a.m..
--- NOTE | 2024-08-17 10:54 | DVHINCON2 ---
Date of service: Aug 17, 2024 Referring Physician Reason for Consultation Acute kidney injury History of Present Illness Patient is 59-year-old male with past medical history of diabetes mellitus, Parkinson disease, chronic kidney disease stage 3 followed in my clinic and arthritis is admitted for generalized weakness associated with chills and nausea. On admission patient found to have elevated BUN creatinine nephrology is consulted for acute kidney injury Past Medical History PAST MEDICAL HISTORY: Arthritis, DM, Parkinson, chronic kidney disease stage IIIB followed my clinic Past Surgical History Surgical History: Denies all surgeries Allergies: Coded Allergies: NO KNOWN ALLERGIES (Unverified , 09/09/19) Home Meds Reported Medications Atenolol (TENORMIN TABLET) 50 Mg Tb, 1 TAB PO DAILY, #30 TAB 5 Refills 08/17/24 Current Medications Current Medications Medications (Trade) Dose Ordered Sig/Nicol Route PRN Reason Start Time Stop Time Status Last Admin Sodium Chloride (Saline Lock Ns) 10 ml Q8HR IV 08/16/24 22:00 08/17/24 05:58 Acetaminophen (Tylenol Tablet) 325 mg Q4HP PRN PO MILD PAIN (1-3 PAIN SCALE) 08/16/24 21:00 08/17/24 08:50 Ondansetron HCl (Zofran) 4 mg Q4HP PRN IV NAUSEA / VOMITING 08/16/24 21:00 Nitroglycerin (Ntrostat Sublingual) 0.4 mg Q5MINP PRN SL FOR CHEST PAIN 08/16/24 21:00 Morphine Sulfate 2 mg Q30M PRN IV FOR CHEST PAIN 08/16/24 21:00 Carbidopa/Levodopa (Sinemet 25/ 100MG) 1 tab TID PO 08/16/24 22:00 08/17/24 05:53 Amlodipine Besylate (Norvasc Tablet) 10 mg DAILY PO 08/17/24 10:00 08/17/24 08:36 Diagnostic Test (Pha) (Accu-Chek Comfort Curve T) 1 strip ACHS 08/17/24 07:00 08/17/24 11:24 Insulin Human Regular (InsuLIN R) ACHS SC 08/17/24 07:00 08/17/24 11:25 Dextrose 50 ml UD PRN IV Blood Sugar LESS THAN 60 08/16/24 22:45 Labetalol HCl (Labetalol HCl) 5 mg Q2HPRN PRN IV SBP>150 08/17/24 01:45 08/17/24 08:51 Heparin Sodium (Porcine) 5,000 units Q12HR SC 08/17/24 10:00 08/17/24 08:37 Atorvastatin Calcium (Lipitor) 40 mg HS PO 08/18/24 22:00 Aspirin (Ecotrin Enteric Coated Tablet) 81 mg DAILY PO 08/18/24 10:00 Review of Systems All 12 item review of systems reviewed with the patient nonsignificant except what is mentioned in the history of present illness in addition patient complain of pain and numbness in both hands H&P Exam Vital Signs/I&O Vital Sign Date Time Temp Pulse Resp B/P (MAP) Pulse Ox O2 Delivery O2 Flow Rate FiO2 08/17/24 08:51 74 150/88 08/17/24 08:33 98.4 20 98 98.4 08/17/24 08:00 Room Air* 0 21 Intake and Output 08/16/24 08/17/24 19:00 07:00 Intake Total 0 ml Output Total 0 ml Balance 0 ml Intake Oral 0 ml Output Urine Total 0 ml Physical Exam Patient is awake alert sitting up in the bed Lungs clear to auscultation bilaterally Cardiac exam regular rate and rhythm GI soft nontender normal Extremities no clubbing cyanosis or edema Neuro fine hand tremors at rest Labs/Diagnostic Data Labs/Diagnostic Data Laboratory Tests Test 08/17/24 10:59 08/17/24 05:56 08/17/24 05:43 08/17/24 05:16 Range/Units POC Glucose 186 H 118 H 70-106 mg/dl White Blood Count 4.9 4.4-10.8 10^3/uL Red Blood Count 3.47 L 4.5-5.90 10^6/uL Hemoglobin 10.4 L 13.5-17.5 g/dL Hematocrit 30.5 L 41.0-53.0 % Mean Corpuscular Volume 87.8 80.0-100.0 fL Mean Corpuscular Hemoglobin 30.0 28.0-32.0 pg Mean Corpuscular Hemoglobin Concent 34.2 32.0-36.0 g/dL Red Cell Distribution Width 14.6 H 11.8-14.3 % Platelet Count 237 140-450 10^3/uL Mean Platelet Volume 6.7 L 6.9-10.8 fL Neutrophils (%) (Auto) 51.0 37.0-80.0 % Lymphocytes (%) (Auto) 32.0 10.0-50.0 % Monocytes (%) (Auto) 11.4 0.0-12.0 % Eosinophils (%) (Auto) 4.6 0.0-7.0 % Basophils (%) (Auto) 1.0 0.0-2.0 % Neutrophils # (Auto) 2.5 1.6-8.6 10 ^3/uL Lymphocytes # (Auto) 1.6 0.4-5.4 10 ^3/uL Monocytes # (Auto) 0.6 0-1.3 10 ^3/uL Eosinophils # (Auto) 0.2 0-0.8 10 ^3/uL Basophils # (Auto) 0 0-0.2 10 ^3/uL Nucleated Red Blood Cells 0.0 % Sodium Level 140 136-145 mmol/L Potassium Level 4.1 3.5-5.1 mmol/L Chloride Level 105 98-107 mmol/L Carbon Dioxide Level 28 20-31 mmol/L Anion Gap 7 5-15 Blood Urea Nitrogen 39 H 9-23 mg/dL Creatinine 2.15 H 0.700-1.30 mg/dL Glomerular Filtration Rate Calc 35 >90 mL/min BUN/Creatinine Ratio 18.1 10.0-20.0 Serum Glucose 113 H 74-106 mg/dL Calcium Level 8.9 8.7-10.4 mg/dL Phosphorus Level 4.2 2.4-5.1 mg/dL Magnesium Level 2.2 1.6-2.6 mg/dL Total Bilirubin 0.4 0.2-1.0 mg/dL Aspartate Amino Transferase (AST) 29 13-40 U/L Alanine Aminotransferase (ALT) < 9 7-40 U/L Alkaline Phosphatase 77 46-116 U/L Total Protein 5.5 L 5.7-8.2 g/dL Albumin 3.2 3.2-4.8 g/dL Test 08/16/24 22:20 08/16/24 17:28 08/16/24 16:59 08/16/24 16:35 Range/Units Prothrombin Time 10.9 9.3-11.8 sec Prothrombin Time INR 1.03 0.9-1.15 Activated Partial Thromboplast Time 27.6 24.5-34.5 SEC Urine Color Light-yellow Yellow Urine Clarity Clear Clear Urine pH 6.0 5.0-9.0 Urine Specific [place] 1.016 1.001-1.035 Urine Protein 3+ H Negative Urine Ketones Negative Negative Urine Blood 2+ H Negative /uL Urine Nitrite Negative Negative Urine Bilirubin Negative Negative Urine Urobilinogen Normal Negative mg/dL Urine Leukocyte Esterase Negative Negative /uL Urine RBC 3 0 - 3 /hpf Urine WBC 1 0 - 3 /hpf Urine Squamous Epithelial Cells Few <5 /hpf Urine Bacteria None seen None Seen /hpf Urine Glucose 3+ H Normal mg/dL SARS-CoV-2 Antigen (Rapid) Negative NEGATIVE White Blood Count 5.3 4.4-10.8 10^3/uL Red Blood Count 3.63 L 4.5-5.90 10^6/uL Hemoglobin 10.9 L 13.5-17.5 g/dL Hematocrit 31.7 L 41.0-53.0 % Mean Corpuscular Volume 87.5 80.0-100.0 fL Mean Corpuscular Hemoglobin 30.2 28.0-32.0 pg Mean Corpuscular Hemoglobin Concent 34.5 32.0-36.0 g/dL Red Cell Distribution Width 14.5 H 11.8-14.3 % Platelet Count 279 140-450 10^3/uL Mean Platelet Volume 6.7 L 6.9-10.8 fL Neutrophils (%) (Auto) 63.3 37.0-80.0 % Lymphocytes (%) (Auto) 23.6 10.0-50.0 % Monocytes (%) (Auto) 10.5 0.0-12.0 % Eosinophils (%) (Auto) 1.8 0.0-7.0 % Basophils (%) (Auto) 0.8 0.0-2.0 % Neutrophils # (Auto) 3.4 1.6-8.6 10 ^3/uL Lymphocytes # (Auto) 1.3 0.4-5.4 10 ^3/uL Monocytes # (Auto) 0.6 0-1.3 10 ^3/uL Eosinophils # (Auto) 0.1 0-0.8 10 ^3/uL Basophils # (Auto) 0 0-0.2 10 ^3/uL Nucleated Red Blood Cells 0.1 % Sodium Level 137 136-145 mmol/L Potassium Level 4.3 3.5-5.1 mmol/L Chloride Level 103 98-107 mmol/L Carbon Dioxide Level 29 20-31 mmol/L Anion Gap 5 5-15 Blood Urea Nitrogen 36 H 9-23 mg/dL Creatinine 2.16 H 0.700-1.30 mg/dL Glomerular Filtration Rate Calc 34 >90 mL/min BUN/Creatinine Ratio 16.7 10.0-20.0 Serum Glucose 192 H 74-106 mg/dL Hemoglobin A1c 6.5 H <5.7 % A1C Lactic Acid Level 0.9 0.4-2.0 mmol/L Calcium Level 9.2 8.7-10.4 mg/dL B-Type Natriuretic Peptide 9.47 0-100 pg/mL Vitamin B12 Level 382 211-911 pg/mL Vitamin D 25-Hydroxy 65.5 30.0-100 ng/mL Thyroid Stimulating Hormone (TSH) 2.69 0.55-4.78 uIU/mL Assessment Acute kidney injury superimposed Chronic Kidney Disease secondary hemodynamic mediated Chronic kidney disease stage IIIB followed in my clinic Nephrotic syndrome possible diabetic nephropathy versus others Patient has multiple symptoms Parkinson's syndrome Diabetes mellitus type 2 Hypertension Anemia of chronic kidney disease Recommendations Closely monitor fluid and electrolytes Avoid nephrotoxic medications Strict I&Os Check urine electrolytes and urine protein excretion Kidney ultrasound reported WNL Blood pressure control Insulin sliding scale Scheduled kidney biopsy for elevation of nephrotic syndrome suspect Fabry's disease We will continue to follow Patient seen and examined by myself I discussed my plan of care with the patient and primary nurse at the bedside I would like to thank Dr. Márquez for the consult, will follow up Plan discussed with: Patient LAURE TOLEDO MD Aug 17, 2024 10:54
[2024-08-17 11:17] LABS: Magnesium 2.2 mg/dL (1.6-2.6)
[2024-08-17 11:18] LABS: Phosphorus 4.2 mg/dL (2.4-5.1)
[2024-08-17] MEDS: ATORVASTATIN 20 MG TAB PO ONE (11:24)
[2024-08-17] MEDS: ASPirin-EC 81 mg tab PO ONE (11:24)
--- NOTE | 2024-08-17 12:58 | DVH ---
Bilateral lower extremity venous duplex Clinical History: r/o dvt Comparison: US RT LOWER DVT on DOS: 08/05/24, US RT UPPER DVT on DOS: 08/05/24 Technique: Duplex Doppler evaluation of the deep venous systems of both lower extremities from the common femora l veins to the popliteal veins including color Doppler and spectral/pulsed waveform analysis was perf ormed. Findings: RIGHT SIDE: The common femoral vein demonstrates appropriate compressibility and waveform variability . There is compressibility/patency of the great saphenous vein at the proximal thigh . The femoral vein demonstrates appropriate compressibility and waveform variability . The deep femoral vein demonstrates appropriate compressibility and waveform variability . The popliteal vein demonstrates appropriate compressibility and waveform variability . There is color flow at the tibioperoneal trunk and in the posterior tibial vein. LEFT SIDE: The common femoral vein demonstrates appropriate compressibility and waveform variability . There is compressibility/patency of the great saphenous vein at the proximal thigh . The femoral vein demonstrates appropriate compressibility and waveform variability . The deep femoral vein demonstrates appropriate compressibility and waveform variability . The popliteal vein demonstrates appropriate compressibility and waveform variability . There is color flow at the tibioperoneal trunk and in the posterior tibial vein. Impression: 1. No right or left femoropopliteal venous thrombosis.
--- NOTE | 2024-08-17 13:07 | DVH ---
CAROTID DOPPLER ULTRASOUND HISTORY: R SIDE WEAK COMPARISON: None TECHNIQUE: Real time gonzalez scale, color Doppler, and spectral duplex images are obtained through the c arotid and vertebral arteries. Findings: Peak systolic velocity right internal carotid artery is 88 cm/s and right common carotid artery is 89 cm/s. Ratio is 1.0. Antegrade flow noted in right vertebral artery. No significant atherosclerotic p laque noted within the right carotid arterial system. Peak systolic velocity left internal carotid artery is 118 cm/s and left common carotid artery is 124 cm/s. Ratio is 1.0. Antegrade flow noted in left vertebral artery. No significant atherosclerotic pl aque noted within the left carotid arterial system. Impression: 1. No evidence of hemodynamically significant stenosis within the bilateral carotid arterial systems. 2. Antegrade flow within bilateral vertebral arteries. Stenosis ICA/CCA PSV ratio PSV 0-40% < 1.5 25-110 cm/s 40-59% < 1.8 > 120 cm/s 60-79% 1.8-3.7 > 130 cm/s 80-99% > 3.7 < 25 cm/s, > 250 cm/s
--- NOTE | 2024-08-17 14:19 | DVHSR ---
APPROVED REPORT EXAM: Two-dimensional and M-mode echocardiogram with Doppler and color Doppler. Blood Pressure: 150/88 mmHg INDICATION Chest Pain RISK FACTORS Height: 5' 5", Weight: 151 DIMENSIONS LVDd4.8 (3.8-5.7cm)LA (2D)3.7 (1.9-4.0cm)Aortic Root3.5 (2.0-3.7cm) LVDs3.4 (2.5-4.0cm)LA (MM) (1.9-4.0cm)Aortic Cusp Exc1.8 (1.5-2.0cm) EF (%) 55.0 (55-70%)Rt. Atrium3.1 (1.9-4.0cm)Asc. Aorta cm IVSd1.0 (0.7-1.1cm)RV (D) (1.8-2.4cm) PWd1.1 (0.7-1.1cm) Mitral Valve MitralMitral Stenosis E wave0.70m/sMV Mean GR.mmHg A wave0.70m/sMV Peak GR.mmHg E/A ratio1.02D MVAcm2 Aortic Valve Aortic ValveAortic Stenosis V10.80m/Samreen Mean GR.4mmHg V21.20m/Samreen Peak GR.6mmHg LVOT Diameter2.3 (1.8-2.4cm)Doppler AVA2.77cm2 Pulmonic Valve V20.80m/s Conclusion Normal left ventricular size and dimension. Normal left ventricular systolic function estimated ejec tion fraction 55%. There is a grade 1 diastolic dysfunction. Normal right ventricular size and dimension. Normal right ventricular systolic function. Normal biatrial size and dimension. Normal aortic valve structure and function. Normal mitral valve structure and function. Normal normal tricuspid valve structure and function. The pulmonary valve is grossly normal. No pericardial effusion.
--- NOTE | 2024-08-17 15:40 | DVHPNRES ---
Progress Note Date Seen: Aug 17, 2024 Resident Creating Document: LOBO DAVIS RESIDENT Medical Necessity Reason Pt with a Central, PICC or Fol: No Subjective Review of Systems Viet Ross is a 59-year-old male patient with PMHx of type 2 diabetes mellitus since 2007, hypertension, parkinsonism who presented to the ER with the complaint of generalized weakness and right-sided weakness along with right flank pain for the past 1 week. Patient was seen in the ER with similar complaints 2 weeks earlier, he reports feeling very tired and decreased strength in his hands. Says that he has been experiencing fever and chills for the past 2 days associated with nausea but no vomiting or abdominal pain. He denies constipation or diarrhea. Denies any history of fall or seizures or trauma. Patient denies any rash. He reports that he has been urinating a lot and that right abdomen under the ribs hurt. History taking was completed with the help of conference interpreter. Past medical history Type 2 diabetes mellitus since 2007, hypertension, parkinsonism Past surgical history Unremarkable Social history Lives with , can ambulate. Denies smoking, drinks socially, denies illicit drug use Allergic history Unremarkable Patient is seen and examined at bedside. Reports feeling weak and fatigued. Right upper and lower extremity motor weakness against resistance as compared to the left side. Right-sided costovertebral angle tenderness present. CT head completed which is unremarkable for acute intracranial pathology MRI in his pending. Carotid Doppler is unremarkable and lower extremity Doppler results unremarkable. Nephrology consulted for probable CKD. Objective vital signs Vital Sign Date Time Temp Pulse Resp B/P (MAP) Pulse Ox O2 Delivery O2 Flow Rate FiO2 08/17/24 13:03 98.4 82 20 138/73 (94) 98 98.4 08/17/24 08:00 Room Air* 0 21 Total Intake and Output 08/16/24 08/16/24 08/17/24 15:00 23:00 07:00 Intake Total 0 ml Output Total 0 ml Balance 0 ml medications Current Medications Medications Dose Ordered Sig/Nicol Route Start Time Stop Time Status Last Admin Dose Admin Sodium Chloride 10 ml Q8HR IV 08/16/24 22:00 08/17/24 13:47 10 ML Acetaminophen 325 mg Q4HP PRN PO 08/16/24 21:00 08/17/24 08:50 325 MG Ondansetron HCl 4 mg Q4HP PRN IV 08/16/24 21:00 Nitroglycerin 0.4 mg Q5MINP PRN SL 08/16/24 21:00 Morphine Sulfate 2 mg Q30M PRN IV 08/16/24 21:00 Carbidopa/Levodopa 1 tab TID PO 08/16/24 22:00 08/17/24 13:48 1 TAB Amlodipine Besylate 10 mg DAILY PO 08/17/24 10:00 08/17/24 08:36 10 MG Diagnostic Test (Pha) 1 strip ACHS 08/17/24 07:00 08/17/24 11:24 1 STRIP Insulin Human Regular ACHS SC 08/17/24 07:00 08/17/24 11:25 3 UNITS Dextrose 50 ml UD PRN IV 08/16/24 22:45 Labetalol HCl 5 mg Q2HPRN PRN IV 08/17/24 01:45 08/17/24 08:51 5 MG Heparin Sodium (Porcine) 5,000 units Q12HR SC 08/17/24 10:00 08/17/24 08:37 5,000 UNITS Atorvastatin Calcium 40 mg HS PO 08/18/24 22:00 Aspirin 81 mg DAILY PO 08/18/24 10:00 Examination Young male patient lying in bed, in no acute distress General: Afebrile, palor, mucosae are moist. Resting tremor noticed of the upper extremity. Cardiovascular: Regular S1 and S2. No murmurs, gallops or rubs. No JVD elevation. No pedal edema Respiratory: Normal B/L air entry on room air. Clear lung sounds on auscultation Abdomen: Soft, nontender, nondistended, normoactive bowel sounds, no rebound tenderness, no organomegaly, no masses. Right-sided costovertebral angle tenderness present. Genitourinary: Deferred MSK/skin: Mobilizes 4 limbs. Skin is dry and warm Neurological: Right upper and lower extremity have motor weakness against resistance, no sensory impairment. No facial asymmetry noticed. [id number] testing is normal. Psych/Mental Status: A/Ox4 laboratory and microbiology Laboratory Tests 08/17/24 05:16 Test 08/17/24 05:16 Range/Units Serum Glucose 113 H 74-106 mg/dL Labs and/or images reviewed: Labs reviewed by me, Image(s) reviewed by me Problem List/Assessment/Plan Problem List/Assessment/Plan Generalized weakness and right-sided weakness-rule out acute stroke CT head completed 08/17, unremarkable for acute intracranial pathology MRI brain pending Doppler ultrasound of the carotids is unremarkable Echocardiogram completed, normal LV size and dimension. LVEF 55 %. Grade 1 diastolic dysfunction. Normal structural heart. Neurologist consulted Started aspirin 81 mg and atorvastatin 40 mg daily MUMTAZ on likely CKD 3B Nephrotic syndrome possible diabetic nephropathy versus others - Rule out Fabry disease Creatinine 2.16 on arrival, GFR 34 Baseline creatinine 1.90, GFR 40 on 08/05/2024 Marshmallow Runner consulted - Scheduled kidney biopsy for elevation of nephrotic syndrome suspect Fabry's disease. Surgeon consulted. Radiologist consulted Urine protein creatinine ratio pending, urine sodium pending Uncontrolled Hypertension Hypertensive heart disease Low likelihood of CHF BNP 9 Continue home medication amlodipine 10 mg daily IV labetalol 5 mg q.2h p.r.n. for SBP greater than 150 mmHg Anemia of chronic kidney disease Treat underlying cause Likely seborrheic dermatitis Started hydrocortisone cream b.i.d. topical 1%. Ruled out lower extremity DVT Extremity venous study is unremarkable for DVT Ruled out pyelonephritis at this point UA is unremarkable for UTI. Renal ultrasound and abdominal CT scan completed, shows no pathology. Parkinson's disease Continue home medication carbidopa/levodopa daily Type 2 diabetes mellitus hemoglobin A1c 6.5 Initiated mild ISS History of arthritis Monitor DVT prophylaxis Heparin 5000 units sc b.i.d. Plan discussed with patient in which all questions have been answered Goals of care discussed with patient for more than 22 minutes, full code status Case discussed with Dr. Wright. Neurologic consultation pending. MRI brain pending. Kidney biopsy pending per natural resource specialist. Rule out fabry disease. Plan discussed with: Patient My Orders My Orders Orders - LOBO DAVIS RESIDENT Procedure Category Date Status Time Drug Screen LAB 08/17/24 Logged 07:48 Bilat Lower Dvt US 08/17/24 Resulted 07:53 Folate (Folic Acid) LAB 08/17/24 In Process 07:[address] 08/17/24 Resulted 09:50 Carotid Duplx W Color US 08/17/24 Resulted DOP 09:50 Orthostatic Vital ED NURSING 08/17/24 Transmitted Signs Orthostatic Vital ORDERS 08/17/24 Transmitted Signs 09:50 Pt Request For Service PT 08/17/24 Logged 09:50 Urine Sodium LAB 08/17/24 Logged 09:52 Urine LAB 08/17/24 Logged Protein/Creatinine 09:52 Atorvastatin (Lipitor) PHA 08/18/24 In Process 22:00 Aspirin Enteric PHA 08/18/24 In Process Coated Tablet 10:00 Brain Head Wo Contrast MRI 08/17/24 Logged 12:29 Electrocardigram EKG 08/17/24 Logged 12:29 Date of Service: Aug 17, 2024 Billing Provider: AMANDA WRIGHT MD Common Visit Codes: [id number] INP/OBS CARE(HIGH) LOBO DAVIS RESIDENT Aug 17, 2024 15:40 AMANDA WRIGHT MD Aug 18, 2024 10:29
[2024-08-17] MEDS ORDERED: diphenhdrAMINE-ZINC ACETATE 1 APPLIC APPL TOP PRN (15:45)
[2024-08-17] MEDS ORDERED: DEXTROSE (50%) 50ML SYRG IV PRN (15:45)
--- NOTE | 2024-08-17 17:23 | DVHINCON2 ---
Date of service: Aug 17, 2024 Allergies: Coded Allergies: NO KNOWN ALLERGIES (Unverified , 09/09/19) Home Meds Reported Medications Atenolol (TENORMIN TABLET) 50 Mg Tb, 1 TAB PO DAILY, #30 TAB 5 Refills 08/17/24 Current Medications Current Medications Medications (Trade) Dose Ordered Sig/Nicol Route PRN Reason Start Time Stop Time Status Last Admin Sodium Chloride (Saline Lock Ns) 10 ml Q8HR IV 08/16/24 22:00 08/17/24 13:47 Acetaminophen (Tylenol Tablet) 325 mg Q4HP PRN PO MILD PAIN (1-3 PAIN SCALE) 08/16/24 21:00 08/17/24 08:50 Ondansetron HCl (Zofran) 4 mg Q4HP PRN IV NAUSEA / VOMITING 08/16/24 21:00 Nitroglycerin (Ntrostat Sublingual) 0.4 mg Q5MINP PRN SL FOR CHEST PAIN 08/16/24 21:00 Morphine Sulfate 2 mg Q30M PRN IV FOR CHEST PAIN 08/16/24 21:00 Carbidopa/Levodopa (Sinemet 25/ 100MG) 1 tab TID PO 08/16/24 22:00 08/17/24 13:48 Amlodipine Besylate (Norvasc Tablet) 10 mg DAILY PO 08/17/24 10:00 08/17/24 08:36 Diagnostic Test (Pha) (Accu-Chek Comfort Curve T) 1 strip ACHS 08/17/24 07:00 08/17/24 11:24 Insulin Human Regular (InsuLIN R) ACHS SC 08/17/24 07:00 08/17/24 11:25 Dextrose 50 ml UD PRN IV Blood Sugar LESS THAN 60 08/16/24 22:45 Labetalol HCl (Labetalol HCl) 5 mg Q2HPRN PRN IV SBP>150 08/17/24 01:45 08/17/24 08:51 Heparin Sodium (Porcine) 5,000 units Q12HR SC 08/17/24 10:00 08/17/24 08:37 Atorvastatin Calcium (Lipitor) 40 mg HS PO 08/18/24 22:00 Aspirin (Ecotrin Enteric Coated Tablet) 81 mg DAILY PO 08/18/24 10:00 Diagnostic Test (Pha) (Accu-Chek Comfort Curve T) 1 strip Q6HWA 08/17/24 18:00 Insulin Human Regular (InsuLIN R) IQ4HR SC 08/17/24 16:00 Dextrose 50 ml UD PRN IV Blood Sugar LESS THAN 60 08/17/24 15:45 Zinc Acetate/ Diphenhydramine (Benadryl Cream) 1 applic Q6HP PRN TOP FOR ITCHING 08/17/24 15:45 Hydrocortisone (Hydrocortisone 1% Cream) 1 applic BID TOP 08/17/24 22:00 Vital Signs Vital Signs Date Time Temp Pulse Resp B/P (MAP) Pulse Ox O2 Delivery O2 Flow Rate FiO2 08/17/24 16:36 98.6 83 18 135/80 (98) 95 98.6 08/17/24 08:00 Room Air* 0 21 Labs/Diagnostic Data Labs Test 08/17/24 10:59 08/17/24 05:43 08/17/24 05:16 08/16/24 22:20 Range/Units POC Glucose 186 H 70-106 mg/dl White Blood Count 4.9 4.4-10.8 10^3/uL Red Blood Count 3.47 L 4.5-5.90 10^6/uL Hemoglobin 10.4 L 13.5-17.5 g/dL Hematocrit 30.5 L 41.0-53.0 % Mean Corpuscular Volume 87.8 80.0-100.0 fL Mean Corpuscular Hemoglobin 30.0 28.0-32.0 pg Mean Corpuscular Hemoglobin Concent 34.2 32.0-36.0 g/dL Red Cell Distribution Width 14.6 H 11.8-14.3 % Platelet Count 237 140-450 10^3/uL Mean Platelet Volume 6.7 L 6.9-10.8 fL Neutrophils (%) (Auto) 51.0 37.0-80.0 % Lymphocytes (%) (Auto) 32.0 10.0-50.0 % Monocytes (%) (Auto) 11.4 0.0-12.0 % Eosinophils (%) (Auto) 4.6 0.0-7.0 % Basophils (%) (Auto) 1.0 0.0-2.0 % Neutrophils # (Auto) 2.5 1.6-8.6 10 ^3/uL Lymphocytes # (Auto) 1.6 0.4-5.4 10 ^3/uL Monocytes # (Auto) 0.6 0-1.3 10 ^3/uL Eosinophils # (Auto) 0.2 0-0.8 10 ^3/uL Basophils # (Auto) 0 0-0.2 10 ^3/uL Nucleated Red Blood Cells 0.0 % Sodium Level 140 136-145 mmol/L Potassium Level 4.1 3.5-5.1 mmol/L Chloride Level 105 98-107 mmol/L Carbon Dioxide Level 28 20-31 mmol/L Anion Gap 7 5-15 Blood Urea Nitrogen 39 H 9-23 mg/dL Creatinine 2.15 H 0.700-1.30 mg/dL Glomerular Filtration Rate Calc 35 >90 mL/min BUN/Creatinine Ratio 18.1 10.0-20.0 Serum Glucose 113 H 74-106 mg/dL Calcium Level 8.9 8.7-10.4 mg/dL Phosphorus Level 4.2 2.4-5.1 mg/dL Magnesium Level 2.2 1.6-2.6 mg/dL Total Bilirubin 0.4 0.2-1.0 mg/dL Aspartate Amino Transferase (AST) 29 13-40 U/L Alanine Aminotransferase (ALT) < 9 7-40 U/L Alkaline Phosphatase 77 46-116 U/L Total Protein 5.5 L 5.7-8.2 g/dL Albumin 3.2 3.2-4.8 g/dL Prothrombin Time 10.9 9.3-11.8 sec Prothrombin Time INR 1.03 0.9-1.15 Activated Partial Thromboplast Time 27.6 24.5-34.5 SEC Test 08/16/24 17:28 08/16/24 16:59 08/16/24 16:35 Range/Units Urine Color Light-yellow Yellow Urine Clarity Clear Clear Urine pH 6.0 5.0-9.0 Urine Specific [place] 1.016 1.001-1.035 Urine Protein 3+ H Negative Urine Ketones Negative Negative Urine Blood 2+ H Negative /uL Urine Nitrite Negative Negative Urine Bilirubin Negative Negative Urine Urobilinogen Normal Negative mg/dL Urine Leukocyte Esterase Negative Negative /uL Urine RBC 3 0 - 3 /hpf Urine WBC 1 0 - 3 /hpf Urine Squamous Epithelial Cells Few <5 /hpf Urine Bacteria None seen None Seen /hpf Urine Glucose 3+ H Normal mg/dL SARS-CoV-2 Antigen (Rapid) Negative NEGATIVE Hemoglobin A1c 6.5 H <5.7 % A1C Lactic Acid Level 0.9 0.4-2.0 mmol/L B-Type Natriuretic Peptide 9.47 0-100 pg/mL Vitamin B12 Level 382 211-911 pg/mL Vitamin D 25-Hydroxy 65.5 30.0-100 ng/mL Thyroid Stimulating Hormone (TSH) 2.69 0.55-4.78 uIU/mL Assessment kidney biopsy is not within the scope of my specialty Plan discussed with: Other SARAH BETH KUMARI MD Aug 17, 2024 17:23
[2024-08-17] MEDS: HYDROCORTONE 1% TOPICAL CREAM 30 GM TUBE TOP SCH (22:00)
[2024-08-18] VITALS (10 sets, daily range): BP systolic 122–156; BP diastolic 75–87; PULSE 70–99; RESP 16–18; TEMP 98–98.9; O2SAT 97–100
[2024-08-18 06:07] LABS: Amphetamine Screen, Urine Neg (NEGATIVE); Barbiturate Scree,Urine Neg (NEGATIVE); Benzodiazephine Screen, Urine Neg (NEGATIVE); Cannabinoid Screen, Urine Neg (NEGATIVE); Cocaine Screen, Urine Neg (NEGATIVE); Opiate Scree,Urine Neg (NEGATIVE); Phencyclidine Screen, Urine Neg (NEGATIVE)
[2024-08-18 06:08] LABS: Creatinine, Urine 203.93 mg/dL (30.0-125.0)
[2024-08-18 06:11] LABS: Protein, Urine 852.4 mg/dL (1-14); Urine Protein/Creatinine Ratio 4.18
[2024-08-18 07:33] LABS: Basophils # (auto) 0.1 10 ^3/uL (0-0.2); Basophils % (auto) 1.2 % (0.0-2.0); Chloride 105 mmol/L (98-107); Eosinophils # (auto) 0.2 10 ^3/uL (0-0.8); Eosinophils % (auto) 4.1 % (0.0-7.0); Hematocrit 28.9 % (41.0-53.0); Hemoglobin 9.8 g/dL (13.5-17.5); Lymphocytes # (auto) 1.4 10 ^3/uL (0.4-5.4); Lymphocytes % (auto) 29.3 % (10.0-50.0); Mean Corpuscular Hgb Conc. 33.8 g/dL (32.0-36.0); Mean Corpuscular Volume 88.7 fL (80.0-100.0); Monocytes # (auto) 0.6 10 ^3/uL (0-1.3); Monocytes % (auto) 12.2 % (0.0-12.0); Neutrophils # (auto) 2.6 10 ^3/uL (1.6-8.6); Neutrophils % (auto) 53.2 % (37.0-80.0); Nucleated Red Blood Cells % 0.1 %; Platelet Count (auto) 240 10^3/uL (140-450); Potassium 4.2 mmol/L (3.5-5.1); Red Blood Cells 3.26 10^6/uL (4.5-5.90); Red Cell Distribution Width 14.8 % (11.8-14.3); Sodium 138 mmol/L (136-145); White Blood Cell 4.9 10^3/uL (4.4-10.8)
[2024-08-18 07:34] LABS: Anion Gap 4 (5-15); Calcium 9.2 mg/dL (8.7-10.4); Carbon Dioxide 29 mmol/L (20-31)
[2024-08-18 07:39] LABS: BUN/Creatinine Ratio 16.5 (10.0-20.0); Blood Urea Nitrogen 38 mg/dL (9-23); Glucose 109 mg/dL (74-106)
--- NOTE | 2024-08-18 09:39 | DVH ---
PROCEDURE: MRI BRAIN HEAD WO CONTRAST INDICATION: RULE OUT STROKE EXAM DATE: 08/18/2024 08:40 AM COMPARISON: CT head 08/17/2024 TECHNIQUE: MRI of the brain without intravenous contrast. FINDINGS: Diffusion weighted images of the brain demonstrate no evidence of acute infarction. There is no evidence of acute intracranial hemorrhage, extra-axial collection, mass effect, midline s hift, herniation or hydrocephalus. The ventricles, sulci and cisterns appear age appropriate. There are minimal nonspecific foci of T2 hyperintensity in the subcortical and periventricular white matter. The signal intensities of the brain parenchyma are otherwise within normal limits. There are no signal abnormalities on the susceptibility weighted sequences. The major vascular flow voids are present. The visualized paranasal sinuses and mastoid air cells are clear. The surrounding soft tissues and o sseous structures are unremarkable. IMPRESSION: 1. No evidence of acute infarction, intracranial hemorrhage, mass effect or hydrocephalus.
[2024-08-18] MEDS: ASPirin-EC 81 mg tab PO SCH (10:21)
--- NOTE | 2024-08-18 11:06 | DVHPN2 ---
Progress Note Date Seen: Aug 18, 2024 Medical Necessity Reason Pt with a Central, PICC or Fol: No Subjective Review of Systems: NEURO:Abnormal Other Systems: Patient seen and examined by myself today in follow-up Objective vital signs Vital Sign Date Time Temp Pulse Resp B/P (MAP) Pulse Ox O2 Delivery O2 Flow Rate FiO2 08/18/24 10:23 123/81 08/18/24 08:54 98.2 83 17 97 98.2 08/17/24 20:00 Room Air* 0 21 Total Intake and Output 08/17/24 08/17/24 08/18/24 15:00 23:00 07:00 Intake Total 400 ml 820 ml Output Total 800 ml 600 ml Balance -400 ml 220 ml medications Current Medications Medications Dose Ordered Sig/Nicol Route Start Time Stop Time Status Last Admin Dose Admin Sodium Chloride 10 ml Q8HR IV 08/16/24 22:00 08/18/24 06:16 10 ML Acetaminophen 325 mg Q4HP PRN PO 08/16/24 21:00 08/17/24 08:50 325 MG Ondansetron HCl 4 mg Q4HP PRN IV 08/16/24 21:00 Nitroglycerin 0.4 mg Q5MINP PRN SL 08/16/24 21:00 Morphine Sulfate 2 mg Q30M PRN IV 08/16/24 21:00 Carbidopa/Levodopa 1 tab TID PO 08/16/24 22:00 08/18/24 06:06 1 TAB Amlodipine Besylate 10 mg DAILY PO 08/17/24 10:00 08/18/24 10:23 10 MG Diagnostic Test (Pha) 1 strip ACHS 08/17/24 07:00 08/18/24 06:15 1 STRIP Insulin Human Regular ACHS SC 08/17/24 07:00 08/17/24 11:25 3 UNITS Labetalol HCl 5 mg Q2HPRN PRN IV 08/17/24 01:45 08/17/24 08:51 5 MG Heparin Sodium (Porcine) 5,000 units Q12HR SC 08/17/24 10:00 08/18/24 10:19 5,000 UNITS Atorvastatin Calcium 40 mg HS PO 08/18/24 22:00 Aspirin 81 mg DAILY PO 08/18/24 10:00 08/18/24 10:21 81 MG Diagnostic Test (Pha) 1 strip Q6HWA 08/17/24 18:00 Insulin Human Regular IQ4HR SC 08/17/24 16:00 08/17/24 20:55 3 UNITS Dextrose 50 ml UD PRN IV 08/17/24 15:45 Zinc Acetate/ Diphenhydramine 1 applic Q6HP PRN TOP 08/17/24 15:45 Hydrocortisone 1 applic BID TOP 08/17/24 22:00 Examination: LUNGS:Normal, CVS:Normal, MSK:Normal laboratory and microbiology Laboratory Tests 08/18/24 05:49 Test 08/18/24 05:49 Range/Units Serum Glucose 109 H 74-106 mg/dL Problem List/Assessment/Plan Problem List/Assessment/Plan Acute kidney injury superimposed Chronic Kidney Disease secondary hemodynamic mediated Chronic kidney disease stage IIIB followed in my clinic Nephrotic syndrome possible diabetic nephropathy versus others Patient has multiple symptoms Parkinson's syndrome Paresthesia bilateral hands Diabetes mellitus type 2 Hypertension Anemia of chronic kidney disease Recommendations Kidney function stabilize stage IIIB Increased urine output Strict I&Os Kidney ultrasound reported WNL Blood pressure control Insulin sliding scale Schedule kidney biopsy for elevation of nephrotic syndrome suspect Fabry's disease, amyloidosis, diabetic nephropathy We will continue to follow Plan discussed with: Patient My Orders My Orders Orders - LAURE TOLEDO MD Procedure Category Date Status Time * Radiologist Consult CONS 08/17/24 Transmitted 11:39 * Surgical Consult CONS 08/17/24 Transmitted 12:15 Nola Direct W/Reflex LAB 08/18/24 Logged To Comp. 11:02 Anca Panel LAB 08/18/24 Logged 11:02 Complement C3 & C4 LAB 08/18/24 Logged 11:02 RPR LAB 08/18/24 Logged 11:02 Immunofixation Urine LAB 08/18/24 Logged 11:02 Hepatitis B Surface LAB 08/18/24 Transmitted Antigen 11:03 Hepatitis C Antibody LAB 08/18/24 Transmitted 11:03 LAURE TOLEDO MD Aug 18, 2024 11:06
[2024-08-18 12:06] LABS: Hepatitis C Antibody Negative (Negative)
[2024-08-18] MEDS ORDERED: DEXTROSE (50%) 50ML SYRG IV PRN ×2 (15:45→17:30)
[2024-08-18] MEDS ORDERED: InsuLIN REG 1unit/0.01ml Soln (100units/ml) SC SCH (18:00)
[2024-08-18] MEDS ORDERED: ACCU-CHEK COMFORT CURVE STRIP VI SCH (18:00)
[2024-08-18] MEDS: ATORVASTATIN 20 MG TAB PO SCH (21:15)
--- NOTE | 2024-08-18 21:41 | DVHINCON2 ---
Date of service: Aug 18, [address] Márquez Reason for Consultation History of Parkinsonism History of Present Illness Mr. Ross is a right-handed gentleman with a history of hypertension, diabetes, he came to the hospital on 08/16/2024 with a chief company of general weakness, heaviness, difficult moving the legs/gait disturbance. He has Parkinson's disease since 2019, which caused left-handed tremors, gait disturbance, bradykinesia, I saw him in office with last evaluation on 07/17/2024, and he does not remember clearly but is supposed to be on Sinemet 25/100 t.i.d., selegiline 5 mg q.d. UDS, 08/18/2024: Negative Urinalysis, 08/16/2024: No UTI WBC/HB/PLT/MCV, 08/18/2024: 4.9/9.8/240/88.7 BUN/CR, 08/18/2024: 38/2.31 HGB A1c, 08/16/2024: 6.5 Liver function tests, 08/17/2024: unremarkable Vitamin B12, 08/16/2024: 382 TSH, 08/16/2024: 2.69 Echocardiogram, 08/17/2024: Normal left ventricular size and dimension. Normal left ventricular systolic function estimated ejection fraction 55%. There is a grade 1 diastolic dysfunction. Normal right ventricular size and dimension. Normal right ventricular systolic function. Normal biatrial size and dimension. Normal aortic valve structure and function. Normal mitral valve structure and function. Normal normal tricuspid valve structure and function. The pulmonary valve is grossly normal. No pericardial effusion Carotid Doppler, 08/17/24: 1. No evidence of hemodynamically significant stenosis within the bilateral carotid arterial systems. 2. Antegrade flow within bilateral vertebral arteries CT head, 08/18/2024: No evidence of acute infarction, intracranial hemorrhage, mass effect or hydrocephalus (I see evidence suggestive of neurocysticercosis) MRI heade, 08/18/2024: No evidence of acute infarction, intracranial hemorrhage, mass effect or hydrocephalus. Past Medical History Diabetes, arthritis Past Surgical History None Family History Diabetes Social History He was tobacco smoke, he denies a history of alcohol or recreational substance abuse Allergies: Coded Allergies: NO KNOWN ALLERGIES (Unverified , 09/09/19) Home Meds Reported Medications Atenolol (TENORMIN TABLET) 50 Mg Tb, 1 TAB PO DAILY, #30 TAB 5 Refills 08/17/24 Current Medications Current Medications Medications (Trade) Dose Ordered Sig/Nicol Route PRN Reason Start Time Stop Time Status Last Admin Atorvastatin Calcium (Lipitor) 40 mg HS PO 08/18/24 22:00 08/18/24 21:15 Aspirin (Ecotrin Enteric Coated Tablet) 81 mg DAILY PO 08/18/24 10:00 08/18/24 10:21 Hydrocortisone (Hydrocortisone 1% Cream) 1 applic BID TOP 08/17/24 22:00 Cholecalciferol (Vitamin D3 Tablet) 4,000 unit DAILY PO 08/19/24 10:00 Diagnostic Test (Pha) (Accu-Chek Comfort Curve T) 1 strip Q6HR 08/18/24 18:00 08/18/24 17:18 DC Insulin Human Regular (InsuLIN R) Q6HR SC 08/18/24 18:00 08/18/24 17:18 DC Dextrose 50 ml UD PRN IV Blood Sugar LESS THAN 60 08/18/24 15:45 08/18/24 17:18 DC Diagnostic Test (Pha) (Accu-Chek Comfort Curve T) 1 strip ACHS 08/18/24 22:00 Insulin Human Regular (InsuLIN R) ACHS SC 08/18/24 22:00 Dextrose 50 ml UD PRN IV Blood Sugar LESS THAN 60 08/18/24 17:30 Review of Systems As above, the other systems are negative Vital Signs Vital Signs Date Time Temp Pulse Resp B/P (MAP) Pulse Ox O2 Delivery O2 Flow Rate FiO2 08/18/24 20:54 98.6 71 17 122/79 (93) 98 98.6 08/18/24 07:45 Room Air* 0 21 Physical Exam GENERAL EXAM: General: the patient is well developed and nourished. No acute distress. HEENT: Normocephalic, neck is supple, no carotid bruits. No mass. RESPIRATORY: Normal respiratory effort with symmetrical lung expansion. Lungs clear to auscultation. CARDIOVASCULAR: Regular rate and rhythm with no murmurs. S1, S2. ABDOMEN: Soft, nontender, normal bowel sound NEUROLOGICAL: MENTAL STATUS: Awake and alert. Oriented to person, place, time and general circumstances. Able to give personal history SPEECH, LANGUAGE, HIGHER CORTICAL FUNCTION: no aphasia, but his voice is soft CRANIAL NERVES: #2: Intact visual morales to confrontation. The optic discs were sharp.No nystagmus. #5: Facial sensation intact in all three divisions bilaterally. Mandibular str ength intact. #7: Facial muscles symmetrical and strength intact, diminished facial expression and blinking. #8: Hearing grossly normal to voice. #9,10: Uvula and soft palate rise in the midline. Swallow and voice are normal. #11: Trapezius and sternomastoid strength intact bilaterally. #12: Tongue midline. No fasciculations or atrophy. SENSATION: Sensation to touch and pinprick is normal. MOTOR: Normal tone in the upper and lower extremity. Normal muscle bulk. No fasciculations. Thought tremors noticed in the right hand. He was bradykinesia . Muscle strength of the major groups in the upper extremities is 5/5. Muscle strength of the major groups in the lower extremities is 5/5. REFLEXES: Deep tendon reflexes are symmetrical. No pathological reflexes. CEREBELLAR/COORDINATION: Finger to nose is normal bilaterally. GAIT/STATION: deferred. Labs/Diagnostic Data Labs Test 08/18/24 19:20 08/18/24 17:20 08/18/24 05:49 08/18/24 05:00 Range/Units POC Glucose 92 70-106 mg/dl White Blood Count 4.9 4.4-10.8 10^3/uL Red Blood Count 3.26 L 4.5-5.90 10^6/uL Hemoglobin 9.8 L 13.5-17.5 g/dL Hematocrit 28.9 L 41.0-53.0 % Mean Corpuscular Volume 88.7 80.0-100.0 fL Mean Corpuscular Hemoglobin 30.0 28.0-32.0 pg Mean Corpuscular Hemoglobin Concent 33.8 32.0-36.0 g/dL Red Cell Distribution Width 14.8 H 11.8-14.3 % Platelet Count 240 140-450 10^3/uL Mean Platelet Volume 7.0 6.9-10.8 fL Neutrophils (%) (Auto) 53.2 37.0-80.0 % Lymphocytes (%) (Auto) 29.3 10.0-50.0 % Monocytes (%) (Auto) 12.2 H 0.0-12.0 % Eosinophils (%) (Auto) 4.1 0.0-7.0 % Basophils (%) (Auto) 1.2 0.0-2.0 % Neutrophils # (Auto) 2.6 1.6-8.6 10 ^3/uL Lymphocytes # (Auto) 1.4 0.4-5.4 10 ^3/uL Monocytes # (Auto) 0.6 0-1.3 10 ^3/uL Eosinophils # (Auto) 0.2 0-0.8 10 ^3/uL Basophils # (Auto) 0.1 0-0.2 10 ^3/uL Nucleated Red Blood Cells 0.1 % Sodium Level 138 136-145 mmol/L Potassium Level 4.2 3.5-5.1 mmol/L Chloride Level 105 98-107 mmol/L Carbon Dioxide Level 29 20-31 mmol/L Anion Gap 4 L 5-15 Blood Urea Nitrogen 38 H 9-23 mg/dL Creatinine 2.31 H 0.700-1.30 mg/dL Glomerular Filtration Rate Calc 32 >90 mL/min BUN/Creatinine Ratio 16.5 10.0-20.0 Serum Glucose 109 H 74-106 mg/dL Calcium Level 9.2 8.7-10.4 mg/dL Hepatitis C Antibody Negative Negative Urine Creatinine 203.93 H 30.0-125.0 mg/dL Urine Microalbumin > 3800.0 H <30.0 mg/L Urine Protein/Creatinine Ratio 4.18 Urine Sodium 36 L 40-220 mmol/L Urine Total Protein 852.4 H 1-14 mg/dL Urine Opiates Screen Neg NEGATIVE Urine Fentanyl Screen Neg NEGATIVE Urine Barbiturates Screen Neg NEGATIVE Urine Phencyclidine Screen Neg NEGATIVE Urine Amphetamines Screen Neg NEGATIVE Urine Benzodiazepines Screen Neg NEGATIVE Urine Cocaine Screen Neg NEGATIVE Urine Cannabinoids Screen Neg NEGATIVE Test 08/17/24 05:43 08/17/24 05:16 08/16/24 22:20 08/16/24 17:28 Range/Units Phosphorus Level 4.2 2.4-5.1 mg/dL Magnesium Level 2.2 1.6-2.6 mg/dL Total Bilirubin 0.4 0.2-1.0 mg/dL Aspartate Amino Transferase (AST) 29 13-40 U/L Alanine Aminotransferase (ALT) < 9 7-40 U/L Alkaline Phosphatase 77 46-116 U/L Total Protein 5.5 L 5.7-8.2 g/dL Albumin 3.2 3.2-4.8 g/dL Prothrombin Time 10.9 9.3-11.8 sec Prothrombin Time INR 1.03 0.9-1.15 Activated Partial Thromboplast Time 27.6 24.5-34.5 SEC Urine Color Light-yellow Yellow Urine Clarity Clear Clear Urine pH 6.0 5.0-9.0 Urine Specific Beebe 1.016 1.001-1.035 Urine Protein 3+ H Negative Urine Ketones Negative Negative Urine Blood 2+ H Negative /uL Urine Nitrite Negative Negative Urine Bilirubin Negative Negative Urine Urobilinogen Normal Negative mg/dL Urine Leukocyte Esterase Negative Negative /uL Urine RBC 3 0 - 3 /hpf Urine WBC 1 0 - 3 /hpf Urine Squamous Epithelial Cells Few <5 /hpf Urine Bacteria None seen None Seen /hpf Urine Glucose 3+ H Normal mg/dL Test 08/16/24 16:59 08/16/24 16:35 Range/Units SARS-CoV-2 Antigen (Rapid) Negative NEGATIVE Hemoglobin A1c 6.5 H <5.7 % A1C Lactic Acid Level 0.9 0.4-2.0 mmol/L B-Type Natriuretic Peptide 9.47 0-100 pg/mL Vitamin B12 Level 382 211-911 pg/mL Vitamin D 25-Hydroxy 65.5 30.0-100 ng/mL Thyroid Stimulating Hormone (TSH) 2.69 0.55-4.78 uIU/mL Assessment Parkinson's disease Gait disturbance secondary to Parkinson's disease Tremors secondary to Parkinson's disease Bradykinesia secondary to come Parkinson's disease Plan/Recommendation Monitoring Supportive treatment Telemetry Sinemet 25/100 mg q.i.d. Up to chair Physical therapy Follow up with me on discharge Plan discussed with: Patient, Other DALTON LAY MD Aug 18, 2024 21:41
[2024-08-18] MEDS: InsuLIN REG 1unit/0.01ml Soln (100units/ml) SC SCH (21:59)
[2024-08-18] MEDS: ACCU-CHEK COMFORT CURVE STRIP VI SCH (22:03)
[2024-08-18] MEDS: CARBIDOPA W LEVODOPA 25/100mg TABLET PO SCH (22:15)
--- NOTE | 2024-08-18 22:47 | DVHPNRES ---
Progress Note Date Seen: Aug 18, 2024 Resident Creating Document: LEANNA KNOTT RESIDENT Medical Necessity Reason Pt with a Central, PICC or Fol: No Subjective Review of Systems Patient seen and examined at bedside. Mentioned improvement in his symptoms Objective vital signs Vital Sign Date Time Temp Pulse Resp B/P (MAP) Pulse Ox O2 Delivery O2 Flow Rate FiO2 08/18/24 20:54 98.6 71 17 122/79 (93) 98 98.6 08/18/24 07:45 Room Air* 0 21 Total Intake and Output 08/17/24 08/17/24 08/18/24 15:00 23:00 07:00 Intake Total 400 ml 820 ml Output Total 800 ml 600 ml Balance -400 ml 220 ml medications Current Medications Medications Dose Ordered Sig/Nicol Route Start Time Stop Time Status Last Admin Dose Admin Sodium Chloride 10 ml Q8HR IV 08/16/24 22:00 08/18/24 21:16 10 ML Acetaminophen 325 mg Q4HP PRN PO 08/16/24 21:00 08/17/24 08:50 325 MG Ondansetron HCl 4 mg Q4HP PRN IV 08/16/24 21:00 Nitroglycerin 0.4 mg Q5MINP PRN SL 08/16/24 21:00 Morphine Sulfate 2 mg Q30M PRN IV 08/16/24 21:00 Amlodipine Besylate 10 mg DAILY PO 08/17/24 10:00 08/18/24 10:23 10 MG Labetalol HCl 5 mg Q2HPRN PRN IV 08/17/24 01:45 08/17/24 08:51 5 MG Heparin Sodium (Porcine) 5,000 units Q12HR SC 08/17/24 10:00 08/18/24 10:19 5,000 UNITS Atorvastatin Calcium 40 mg HS PO 08/18/24 22:00 08/18/24 21:15 40 MG Aspirin 81 mg DAILY PO 08/18/24 10:00 08/18/24 10:21 81 MG Zinc Acetate/ Diphenhydramine 1 applic Q6HP PRN TOP 08/17/24 15:45 Hydrocortisone 1 applic BID TOP 08/17/24 22:00 Cholecalciferol 4,000 unit DAILY PO 08/19/24 10:00 Diagnostic Test (Pha) 1 strip ACHS 08/18/24 22:00 08/18/24 22:03 1 STRIP Insulin Human Regular ACHS SC 08/18/24 22:00 08/18/24 21:59 2 UNITS Dextrose 50 ml UD PRN IV 08/18/24 17:30 Carbidopa/Levodopa 1 tab QID PO 08/18/24 22:15 UNV Examination Young male patient lying in bed, in no acute distress General: Afebrile, palor, mucosae are moist. Resting tremor noticed of the upper extremity. Cardiovascular: Regular S1 and S2. No murmurs, gallops or rubs. No JVD elevation. No pedal edema Respiratory: Normal B/L air entry on room air. Clear lung sounds on auscultation Abdomen: Soft, nontender, nondistended, normoactive bowel sounds, no rebound tenderness, no organomegaly, no masses. Right-sided costovertebral angle tenderness present. Genitourinary: Deferred MSK/skin: Mobilizes 4 limbs. Skin is dry and warm Neurological: Right upper and lower extremity have motor weakness against resistance, no sensory impairment. No facial asymmetry noticed. [id number] testing is normal. Psych/Mental Status: A/Ox4 laboratory and microbiology Laboratory Tests 08/18/24 05:49 Test 08/18/24 05:49 Range/Units Serum Glucose 109 H 74-106 mg/dL Problem List/Assessment/Plan Problem List/Assessment/Plan Assessment/plan #Generalized weakness and right-sided weakness-ruled out acute stroke CT head completed 08/17, unremarkable for acute intracranial pathology MRI brain, no acute intracranial abn Doppler ultrasound of the carotids is unremarkable Echocardiogram completed, normal LV size and dimension. LVEF 55 %. Grade 1 diastolic dysfunction. Normal structural heart. Neurologist consulted Started aspirin 81 mg and atorvastatin 40 mg daily #MUMTAZ on likely CKD 3B Nephrotic syndrome possible diabetic nephropathy versus others - Rule out Fabry disease Creatinine 2.16 on arrival, GFR 34 Baseline creatinine 1.90, GFR 40 on 08/05/2024 Company Accountant consulted - Scheduled kidney biopsy for elevation of nephrotic syndrome suspect Fabry's disease. Surgeon consulted. Radiologist consulted Urine protein creatinine ratio pending, urine sodium pending #Uncontrolled Hypertension Hypertensive heart disease Low likelihood of CHF BNP 9 Continue home medication amlodipine 10 mg daily IV labetalol 5 mg q.2h p.r.n. for SBP greater than 150 mmHg #Anemia of chronic kidney disease Treat underlying cause #Likely seborrheic dermatitis Started hydrocortisone cream b.i.d. topical 1%. #Ruled out lower extremity DVT Extremity venous study is unremarkable for DVT #Ruled out pyelonephritis at this point UA is unremarkable for UTI. Renal ultrasound and abdominal CT scan completed, shows no pathology. #Parkinson's disease Continue home medication carbidopa/levodopa daily #Type 2 diabetes mellitus hemoglobin A1c 6.5 Initiated mild ISS #History of arthritis Monitor #DVT prophylaxis Heparin 5000 units sc b.i.d. Plan discussed with patient in which all questions have been answered Goals of care discussed with patient for more than 22 minutes, full code status Case discussed with Dr. Wright. Plan discussed with: Patient, Other My Orders My Orders Orders - LEANNA KNOTT RESIDENT Procedure Category Date Status Time Cholecalciferol PHA 08/19/24 In Process Tablet (Vitamin D3 10:00 Strict I & O BANDAR 08/18/24 In Process 15:31 Glucose Blood PHA 08/18/24 In Process (Accu-Chek Comfort 22:00 Insulin R (Human) PHA 08/18/24 In Process (Insulin R) 22:00 Dextrose 50% Syringe PHA 08/18/24 In Process 17:30 Npo After Midnight DIET 08/18/24 Transmitted Dinner Date of Service: Aug 18, 2024 Billing Provider: AMANDA WRIGHT MD Common Visit Codes: [id number] INP/OBS CARE(HIGH) LEANNA KNOTT RESIDENT Aug 18, 2024 22:47 AMANDA WRIGHT MD Aug 21, 2024 17:56
[2024-08-19] VITALS (9 sets, daily range): BP systolic 39–170; BP diastolic 78–101; PULSE 73–105; RESP 16–20; TEMP 97.1–98.4; O2SAT 96–99
[2024-08-19 08:16] LABS: Chloride 106 mmol/L (98-107); Potassium 4.2 mmol/L (3.5-5.1); Sodium 139 mmol/L (136-145)
[2024-08-19 08:17] LABS: Anion Gap 7 (5-15); Calcium 9.5 mg/dL (8.7-10.4); Carbon Dioxide 26 mmol/L (20-31)
[2024-08-19 08:22] LABS: BUN/Creatinine Ratio 16.8 (10.0-20.0); Blood Urea Nitrogen 39 mg/dL (9-23); Glucose 124 mg/dL (74-106)
[2024-08-19 08:53] LABS: Hepatitis B Surface Antigen Negative (Negative)
--- NOTE | 2024-08-19 11:06 | DVHPN2 ---
Progress Note - Dictate Date Seen: Aug 19, 2024 Medical Necessity Reason Pt with a Central, PICC or Fol: No Subjective NAD IR planned for biopsy today vital signs Vital Sign Date Time Temp Pulse Resp B/P (MAP) Pulse Ox O2 Delivery O2 Flow Rate FiO2 08/19/24 08:36 98.2 101 20 147/85 (105) 98 98.2 08/19/24 08:00 Room Air* 0 21 Total Intake and Output 08/18/24 08/18/24 08/19/24 15:00 23:00 07:00 Intake Total 1000 ml 0 ml Output Total 200 ml Balance 1000 ml -200 ml medications Current Medications Medications Dose Ordered Sig/Nicol Route Start Time Stop Time Status Last Admin Dose Admin Sodium Chloride 10 ml Q8HR IV 08/16/24 22:00 08/19/24 06:35 10 ML Acetaminophen 325 mg Q4HP PRN PO 08/16/24 21:00 08/17/24 08:50 325 MG Ondansetron HCl 4 mg Q4HP PRN IV 08/16/24 21:00 Nitroglycerin 0.4 mg Q5MINP PRN SL 08/16/24 21:00 Morphine Sulfate 2 mg Q30M PRN IV 08/16/24 21:00 Amlodipine Besylate 10 mg DAILY PO 08/17/24 10:00 08/18/24 10:23 10 MG Labetalol HCl 5 mg Q2HPRN PRN IV 08/17/24 01:45 08/17/24 08:51 5 MG Heparin Sodium (Porcine) 5,000 units Q12HR SC 08/17/24 10:00 08/18/24 10:19 5,000 UNITS Atorvastatin Calcium 40 mg HS PO 08/18/24 22:00 08/18/24 21:15 40 MG Aspirin 81 mg DAILY PO 08/18/24 10:00 08/18/24 10:21 81 MG Zinc Acetate/ Diphenhydramine 1 applic Q6HP PRN TOP 08/17/24 15:45 Hydrocortisone 1 applic BID TOP 08/17/24 22:00 Cholecalciferol 4,000 unit DAILY PO 08/19/24 10:00 Diagnostic Test (Pha) 1 strip ACHS 08/18/24 22:00 08/19/24 06:36 1 STRIP Insulin Human Regular ACHS SC 08/18/24 22:00 08/18/24 21:59 2 UNITS Dextrose 50 ml UD PRN IV 08/18/24 17:30 Carbidopa/Levodopa 1 tab QID PO 08/18/24 22:15 08/19/24 06:36 1 TAB laboratory and microbiology Laboratory Tests 08/19/24 07:53 08/18/24 05:49 Test 08/19/24 07:53 Range/Units Serum Glucose 124 H 74-106 mg/dL Assessment/Plan Acute kidney injury superimposed Chronic Kidney Disease secondary hemodynamic mediated Chronic kidney disease stage IIIB followed in my clinic Nephrotic syndrome possible diabetic nephropathy versus others Patient has multiple symptoms Parkinson's syndrome Paresthesia bilateral hands Diabetes mellitus type 2 Hypertension Anemia of chronic kidney disease Kidney function stabilize stage IIIB Increased urine output Strict I&Os Kidney ultrasound reported WNL Blood pressure control Insulin sliding scale Scheduled kidney biopsy for elevation of nephrotic syndrome suspect Fabry's disease, amyloidosis, diabetic nephropathy; today Plan discussed with: Patient OSKAR ALVAREZ MD Aug 19, 2024 11:06
--- NOTE | 2024-08-19 11:15 | DVHPN2 ---
Progress Note - Dictate Date Seen: Aug 19, 2024 Medical Necessity Reason Pt with a Central, PICC or Fol: No Subjective Mr. Ross is a right-handed gentleman with a history of hypertension, diabetes, he came to the hospital on 08/16/2024 with a chief company of general weakness, heaviness, difficult moving the legs/gait disturbance. I have seen and examined the patient, discussed with his nurse, he is doing fine, alert and oriented x4, the Parkinson's feature looks better today though the Sinemet dosage has not been increase the at No new complaints UDS, 08/18/2024: Negative Urinalysis, 08/16/2024: No UTI WBC/HB/PLT/MCV, 08/18/2024: 4.9/9.8/240/88.7 BUN/CR, 08/18/2024: 38/2.31 HGB A1c, 08/16/2024: 6.5 Liver function tests, 08/17/2024: unremarkable Vitamin B12, 08/16/2024: 382 TSH, 08/16/2024: 2.69 Echocardiogram, 08/17/2024: Normal left ventricular size and dimension. Normal left ventricular systolic function estimated ejection fraction 55%. There is a grade 1 diastolic dysfunction. Normal right ventricular size and dimension. Normal right ventricular systolic function. Normal biatrial size and dimension. Normal aortic valve structure and function. Normal mitral valve structure and function. Normal normal tricuspid valve structure and function. The pulmonary valve is grossly normal. No pericardial effusion Carotid Doppler, 08/17/24: 1. No evidence of hemodynamically significant stenosis within the bilateral carotid arterial systems. 2. Antegrade flow within bilateral vertebral arteries CT head, 08/18/2024: No evidence of acute infarction, intracranial hemorrhage, mass effect or hydrocephalus (I see evidence suggestive of neurocysticercosis) MRI heade, 08/18/2024: No evidence of acute infarction, intracranial hemorrhage, mass effect or hydrocephalus. vital signs Vital Sign Date Time Temp Pulse Resp B/P (MAP) Pulse Ox O2 Delivery O2 Flow Rate FiO2 08/19/24 08:36 98.2 101 20 147/85 (105) 98 98.2 08/19/24 08:00 Room Air* 0 21 Total Intake and Output 08/18/24 08/18/24 08/19/24 15:00 23:00 07:00 Intake Total 1000 ml 0 ml Output Total 200 ml Balance 1000 ml -200 ml medications Current Medications Medications Dose Ordered Sig/Nicol Route Start Time Stop Time Status Last Admin Dose Admin Sodium Chloride 10 ml Q8HR IV 08/16/24 22:00 08/19/24 06:35 10 ML Acetaminophen 325 mg Q4HP PRN PO 08/16/24 21:00 08/17/24 08:50 325 MG Ondansetron HCl 4 mg Q4HP PRN IV 08/16/24 21:00 Nitroglycerin 0.4 mg Q5MINP PRN SL 08/16/24 21:00 Morphine Sulfate 2 mg Q30M PRN IV 08/16/24 21:00 Amlodipine Besylate 10 mg DAILY PO 08/17/24 10:00 08/18/24 10:23 10 MG Labetalol HCl 5 mg Q2HPRN PRN IV 08/17/24 01:45 08/17/24 08:51 5 MG Heparin Sodium (Porcine) 5,000 units Q12HR SC 08/17/24 10:00 08/18/24 10:19 5,000 UNITS Atorvastatin Calcium 40 mg HS PO 08/18/24 22:00 08/18/24 21:15 40 MG Zinc Acetate/ Diphenhydramine 1 applic Q6HP PRN TOP 08/17/24 15:45 Hydrocortisone 1 applic BID TOP 08/17/24 22:00 Cholecalciferol 4,000 unit DAILY PO 08/19/24 10:00 Diagnostic Test (Pha) 1 strip ACHS 08/18/24 22:00 08/19/24 06:36 1 STRIP Insulin Human Regular ACHS SC 08/18/24 22:00 08/18/24 21:59 2 UNITS Dextrose 50 ml UD PRN IV 08/18/24 17:30 Carbidopa/Levodopa 1 tab QID PO 08/18/24 22:15 08/19/24 06:36 1 TAB objective General: the patient is well developed and nourished. No acute distress. MENTAL STATUS: Awake and alert. Oriented to person, place, time and general circumstances. Able to give personal history SPEECH, LANGUAGE, HIGHER CORTICAL FUNCTION: no aphasia, but his voice is soft CRANIAL NERVES: Facial sensation intact in all three divisions bilaterally. Mandibular strength intact. Facial muscles symmetrical and strength intact, diminished facial expression and blinking. Hearing grossly normal to voice. SENSATION: Sensation to touch and pinprick is normal. MOTOR: Normal tone in the upper and lower extremity. Normal muscle bulk. No fasciculations. Thought tremors noticed in the right hand. He was bradykinesia . Muscle strength of the major groups in the extremities is 5/5. REFLEXES: Deep tendon reflexes are symmetrical. No pathological reflexes. CEREBELLAR/COORDINATION: Finger to nose is normal bilaterally. GAIT/STATION: deferred. laboratory and microbiology Laboratory Tests 08/19/24 07:53 08/18/24 05:49 Test 08/19/24 07:53 Range/Units Serum Glucose 124 H 74-106 mg/dL Problem List Parkinson's disease Gait disturbance secondary to Parkinson's disease Tremors secondary to Parkinson's disease Bradykinesia secondary to come Parkinson's disease Assessment/Plan Monitoring Supportive treatment Telemetry Sinemet 25/100 mg q.i.d. Up to chair Physical therapy Follow up with me on discharge This medical document was created using an electronic medical record system with [employer] dictation system. Although this document has been carefully reviewed, there may still be some phonetic and typographical errors. These areas are purely typographical due to imperfections of the software programs, and do not reflect any compromise in the patient's medical care. Prognosis poor Plan discussed with: Patient, Other DALTON LAY MD Aug 19, 2024 11:15
[2024-08-19] MEDS: CHOLECALCIFEROL (VITD3) 1,000UNIT=25mCg TAB PO SCH (11:24)
[2024-08-19] MEDS ORDERED: GABA-1308 PO (15:26)
--- NOTE | 2024-08-19 17:11 | DVHPNRES ---
Progress Note Date Seen: Aug 19, 2024 Resident Creating Document: LOBO DAVIS RESIDENT Medical Necessity Reason Pt with a Central, PICC or Fol: No Subjective Review of Systems Viet Ross is a 59-year-old male patient with PMHx of type 2 diabetes mellitus since 2007, hypertension, parkinsonism who presented to the ER with the complaint of generalized weakness and right-sided weakness along with right flank pain for the past 1 week. Patient was seen in the ER with similar complaints 2 weeks earlier, he reports feeling very tired and decreased strength in his hands. Says that he has been experiencing fever and chills for the past 2 days associated with nausea but no vomiting or abdominal pain. He denies constipation or diarrhea. Denies any history of fall or seizures or trauma. Patient denies any rash. He reports that he has been urinating a lot and that right abdomen under the ribs hurt. History taking was completed with the help of auto cleaner. Past medical history Type 2 diabetes mellitus since 2007, hypertension, parkinsonism Past surgical history Unremarkable Social history Lives with , can ambulate. Denies smoking, drinks socially, denies illicit drug use Allergic history Unremarkable 08/17 - Patient is seen and examined at bedside. Reports feeling weak and fatigued. Right upper and lower extremity motor weakness against resistance as compared to the left side. Right-sided costovertebral angle tenderness present. CT head completed which is unremarkable for acute intracranial pathology MRI in his pending. Carotid Doppler is unremarkable and lower extremity Doppler results unremarkable. Nephrology consulted for probable CKD. 08/19 - patient is seen ambulating with the help of 2 wheel walker. No gait noticed. Reports pitting weak. Renal biopsy 08/20. NPO starting midnight. Objective vital signs Vital Sign Date Time Temp Pulse Resp B/P (MAP) Pulse Ox O2 Delivery O2 Flow Rate FiO2 08/19/24 13:00 98.4 86 20 138/86 (103) 98 98.4 08/19/24 08:00 Room Air* 0 21 Total Intake and Output 08/18/24 08/18/24 08/19/24 15:00 23:00 07:00 Intake Total 1000 ml 0 ml Output Total 200 ml Balance 1000 ml -200 ml medications Current Medications Medications Dose Ordered Sig/Nicol Route Start Time Stop Time Status Last Admin Dose Admin Sodium Chloride 10 ml Q8HR IV 08/16/24 22:00 08/19/24 06:35 10 ML Acetaminophen 325 mg Q4HP PRN PO 08/16/24 21:00 08/17/24 08:50 325 MG Ondansetron HCl 4 mg Q4HP PRN IV 08/16/24 21:00 Nitroglycerin 0.4 mg Q5MINP PRN SL 08/16/24 21:00 Morphine Sulfate 2 mg Q30M PRN IV 08/16/24 21:00 Amlodipine Besylate 10 mg DAILY PO 08/17/24 10:00 08/19/24 11:24 10 MG Labetalol HCl 5 mg Q2HPRN PRN IV 08/17/24 01:45 08/17/24 08:51 5 MG Heparin Sodium (Porcine) 5,000 units Q12HR SC 08/17/24 10:00 08/18/24 10:19 5,000 UNITS Atorvastatin Calcium 40 mg HS PO 08/18/24 22:00 08/18/24 21:15 40 MG Zinc Acetate/ Diphenhydramine 1 applic Q6HP PRN TOP 08/17/24 15:45 Cholecalciferol 4,000 unit DAILY PO 08/19/24 10:00 08/19/24 11:24 4,000 UNIT Diagnostic Test (Pha) 1 strip ACHS 08/18/24 22:00 08/19/24 11:30 1 STRIP Insulin Human Regular ACHS SC 08/18/24 22:00 08/18/24 21:59 2 UNITS Dextrose 50 ml UD PRN IV 08/18/24 17:30 Carbidopa/Levodopa 1 tab QID PO 08/18/24 22:15 08/19/24 12:21 1 TAB Examination Young male patient lying in bed, in no acute distress General: Afebrile, palor, mucosae are moist. Resting tremor noticed of the upper extremity. Cardiovascular: Regular S1 and S2. No murmurs, gallops or rubs. No JVD elevation. No pedal edema Respiratory: Normal B/L air entry on room air. Clear lung sounds on auscultation Abdomen: Soft, nontender, nondistended, normoactive bowel sounds, no rebound tenderness, no organomegaly, no masses. Right-sided costovertebral angle tenderness present. Genitourinary: Deferred MSK/skin: Mobilizes 4 limbs. Skin is dry and warm Neurological: Right upper and lower extremity have motor weakness against resistance, no sensory impairment. No facial asymmetry noticed. Votdmb-nm-[id number] testing is normal. Psych/Mental Status: A/Ox4 laboratory and microbiology Laboratory Tests 08/19/24 07:53 08/18/24 05:49 Test 08/19/24 07:53 Range/Units Serum Glucose 124 H 74-106 mg/dL Labs and/or images reviewed: Labs reviewed by me, Image(s) reviewed by me Problem List/Assessment/Plan Problem List/Assessment/Plan Generalized weakness and right-sided weakness secondary to Parkinson disease versus Fabry disease Ruled out acute stroke CT head completed 08/17, unremarkable for acute intracranial pathology MRI brain - No evidence of acute infarction, intracranial hemorrhage, mass effect or hydrocephalus. Doppler ultrasound of the carotids is unremarkable Echocardiogram completed, normal LV size and dimension. LVEF 55 %. Grade 1 diastolic dysfunction. Normal structural heart. Neurologist consulted - Sinemet 25/100 mg q.i.d. Started aspirin 81 mg and atorvastatin 40 mg daily MUMTAZ secondary to questionable vasomotor nephropathy on likely CKD 3B Nephrotic syndrome possible diabetic nephropathy versus others - Rule out Fabry/amyloidosis/diabetic nephropathy disease Creatinine 2.16 on arrival, GFR 34 Baseline creatinine 1.90, GFR 40 on 08/05/2024 Vegetable Inspector consulted - Scheduled kidney biopsy for elevation of nephrotic syndrome suspect Fabry's disease. Radiologist consulted - renal biopsy 08/20 - NPO starting midnight. FENA 0.3 Protein/creatinine ratio 4.18 Urine microalbumin greater than 3800. Uncontrolled Hypertension Hypertensive heart disease Low likelihood of CHF BNP 9 Continue home medication amlodipine 10 mg daily IV labetalol 5 mg q.2h p.r.n. for SBP greater than 150 mmHg Anemia of chronic kidney disease Treat underlying cause Likely seborrheic dermatitis Topical Benadryl cream. Ruled out lower extremity DVT Extremity venous study is unremarkable for DVT Ruled out pyelonephritis at this point UA is unremarkable for UTI. Renal ultrasound and abdominal CT scan completed, shows no pathology. Parkinson's disease Continue home medication carbidopa/levodopa daily Type 2 diabetes mellitus hemoglobin A1c 6.5 Initiated mild ISS Urine microalbumin greater than 3800 History of arthritis Monitor DVT prophylaxis Heparin 5000 units sc b.i.d. Plan discussed with patient in which all questions have been answered Goals of care discussed with patient for more than 22 minutes, full code status Case discussed with Dr. Bennett. Kidney biopsy pending per duplicating machine mechanic. Rule out fabry disease. Plan discussed with: Patient, Daughter (At bedside) My Orders My Orders Orders - LOBO DAVIS Procedure Category Date Status Time * Out Of School Hours Care Worker CONS 08/19/24 Transmitted Consult 15:28 LOBO DAVIS Aug 19, 2024 17:11
[2024-08-19] MEDS: SODIUM CHLORIDE 0.9% 1,000 ML IV ONE (18:36)
[2024-08-20] VITALS (7 sets, daily range): BP systolic 114–150; BP diastolic 77–91; PULSE 83–103; RESP 16–20; TEMP 97.2–98.5; O2SAT 96–98
[2024-08-20 04:42] LABS: Basophils # (auto) 0.1 10 ^3/uL (0-0.2); Basophils % (auto) 0.9 % (0.0-2.0); Eosinophils # (auto) 0.2 10 ^3/uL (0-0.8); Hematocrit 33.5 % (41.0-53.0); Hemoglobin 11.3 g/dL (13.5-17.5); Lymphocytes # (auto) 1.5 10 ^3/uL (0.4-5.4); Lymphocytes % (auto) 24.9 % (10.0-50.0); Mean Corpuscular Hgb Conc. 33.8 g/dL (32.0-36.0); Mean Corpuscular Volume 88.6 fL (80.0-100.0); Monocytes # (auto) 0.5 10 ^3/uL (0-1.3); Monocytes % (auto) 9.1 % (0.0-12.0); Neutrophils # (auto) 3.6 10 ^3/uL (1.6-8.6); Neutrophils % (auto) 62.1 % (37.0-80.0); Platelet Count (auto) 299 10^3/uL (140-450); Red Blood Cells 3.78 10^6/uL (4.5-5.90); Red Cell Distribution Width 14.9 % (11.8-14.3); White Blood Cell 5.9 10^3/uL (4.4-10.8)
[2024-08-20 04:49] LABS: Anion Gap 6 (5-15); Carbon Dioxide 26 mmol/L (20-31); Chloride 107 mmol/L (98-107); Potassium 4.3 mmol/L (3.5-5.1); Sodium 139 mmol/L (136-145)
[2024-08-20 04:51] LABS: Calcium 9.8 mg/dL (8.7-10.4)
[2024-08-20 04:55] LABS: BUN/Creatinine Ratio 18.8 (10.0-20.0); Blood Urea Nitrogen 42 mg/dL (9-23); Glucose 101 mg/dL (74-106)
[2024-08-20 07:06] LABS: RPR Non Reactive (Non Reactive)
[2024-08-20 08:06] LABS: Complement C3 142 mg/dL (82-167)
--- NOTE | 2024-08-20 09:21 | DVHPN2 ---
Progress Note - Dictate Date Seen: Aug 20, 2024 Medical Necessity Reason Pt with a Central, PICC or Fol: No Subjective NAD IR planned for biopsy today vital signs Vital Sign Date Time Temp Pulse Resp B/P (MAP) Pulse Ox O2 Delivery O2 Flow Rate FiO2 08/20/24 08:37 98.0 86 16 114/78 (90) 98 98.0 08/20/24 08:00 Room Air* 0 21 Total Intake and Output 08/19/24 08/19/24 08/20/24 15:00 23:00 07:00 Intake Total 1075 ml 0 ml Output Total 400 ml 475 ml Balance 675 ml -475 ml medications Current Medications Medications Dose Ordered Sig/Nicol Route Start Time Stop Time Status Last Admin Dose Admin Sodium Chloride 10 ml Q8HR IV 08/16/24 22:00 08/20/24 05:50 10 ML Acetaminophen 325 mg Q4HP PRN PO 08/16/24 21:00 08/19/24 18:36 325 MG Ondansetron HCl 4 mg Q4HP PRN IV 08/16/24 21:00 Nitroglycerin 0.4 mg Q5MINP PRN SL 08/16/24 21:00 Morphine Sulfate 2 mg Q30M PRN IV 08/16/24 21:00 Amlodipine Besylate 10 mg DAILY PO 08/17/24 10:00 08/19/24 11:24 10 MG Labetalol HCl 5 mg Q2HPRN PRN IV 08/17/24 01:45 08/17/24 08:51 5 MG Heparin Sodium (Porcine) 5,000 units Q12HR SC 08/17/24 10:00 08/18/24 10:19 5,000 UNITS Atorvastatin Calcium 40 mg HS PO 08/18/24 22:00 08/19/24 21:30 40 MG Zinc Acetate/ Diphenhydramine 1 applic Q6HP PRN TOP 08/17/24 15:45 Cholecalciferol 4,000 unit DAILY PO 08/19/24 10:00 08/19/24 11:24 4,000 UNIT Diagnostic Test (Pha) 1 strip ACHS 08/18/24 22:00 08/20/24 06:13 1 STRIP Insulin Human Regular ACHS SC 08/18/24 22:00 08/19/24 21:28 3 UNITS Dextrose 50 ml UD PRN IV 08/18/24 17:30 Carbidopa/Levodopa 1 tab QID PO 08/18/24 22:15 08/20/24 05:50 1 TAB laboratory and microbiology Laboratory Tests 08/20/24 03:39 Test 08/20/24 03:39 Range/Units Serum Glucose 101 74-106 mg/dL Assessment/Plan Acute kidney injury superimposed Chronic Kidney Disease secondary hemodynamic mediated Chronic kidney disease stage IIIB followed in my clinic Nephrotic syndrome possible diabetic nephropathy versus others Patient has multiple symptoms Parkinson's syndrome Paresthesia bilateral hands Diabetes mellitus type 2 Hypertension Anemia of chronic kidney disease Kidney function stabilize stage IIIB Increased urine output Strict I&Os Kidney ultrasound reported WNL Blood pressure control Insulin sliding scale Scheduled kidney biopsy for elevation of nephrotic syndrome suspect Fabry's disease, amyloidosis, diabetic nephropathy; Plan discussed with: Patient OSKAR ALVAREZ MD Aug 20, 2024 09:21
[2024-08-20 13:07] LABS: Anti-Nuclear Antibody Direct Negative (Negative)
--- NOTE | 2024-08-20 18:19 | DVHPNRES ---
Progress Note Date Seen: Aug 20, 2024 Resident Creating Document: LOBO DAVIS RESIDENT Medical Necessity Reason Pt with a Central, PICC or Fol: No Subjective Review of Systems Viet Ross is a 59-year-old male patient with PMHx of type 2 diabetes mellitus since 2007, hypertension, parkinsonism who presented to the ER with the complaint of generalized weakness and right-sided weakness along with right flank pain for the past 1 week. Patient was seen in the ER with similar complaints 2 weeks earlier, he reports feeling very tired and decreased strength in his hands. Says that he has been experiencing fever and chills for the past 2 days associated with nausea but no vomiting or abdominal pain. He denies constipation or diarrhea. Denies any history of fall or seizures or trauma. Patient denies any rash. He reports that he has been urinating a lot and that right abdomen under the ribs hurt. History taking was completed with the help of aerial photograph interpreter. Past medical history Type 2 diabetes mellitus since 2007, hypertension, parkinsonism Past surgical history Unremarkable Social history Lives with , can ambulate. Denies smoking, drinks socially, denies illicit drug use Allergic history Unremarkable 08/17 - Patient is seen and examined at bedside. Reports feeling weak and fatigued. Right upper and lower extremity motor weakness against resistance as compared to the left side. Right-sided costovertebral angle tenderness present. CT head completed which is unremarkable for acute intracranial pathology MRI in his pending. Carotid Doppler is unremarkable and lower extremity Doppler results unremarkable. Nephrology consulted for probable CKD. 08/19 - patient is seen ambulating with the help of 2 wheel walker. No gait noticed. Reports pitting weak. Renal biopsy 08/20. NPO starting midnight. 08/20 - patient had heparin on 08/19 therefore biopsy was rescheduled to 08/21. NPO starting midnight. Talked with the daughter over the phone call, all questions have been answered. Patient wants something for the sleep, melatonin 5 mg HS started. Objective vital signs Vital Sign Date Time Temp Pulse Resp B/P (MAP) Pulse Ox O2 Delivery O2 Flow Rate FiO2 08/20/24 16:59 97.6 94 19 147/83 (104) 98 97.6 08/20/24 08:00 Room Air* 0 21 Total Intake and Output 08/19/24 08/19/24 08/20/24 15:00 23:00 07:00 Intake Total 1075 ml 0 ml Output Total 400 ml 475 ml Balance 675 ml -475 ml medications Current Medications Medications Dose Ordered Sig/Nicol Route Start Time Stop Time Status Last Admin Dose Admin Sodium Chloride 10 ml Q8HR IV 08/16/24 22:00 08/20/24 14:00 10 ML Acetaminophen 325 mg Q4HP PRN PO 08/16/24 21:00 08/19/24 18:36 325 MG Ondansetron HCl 4 mg Q4HP PRN IV 08/16/24 21:00 Nitroglycerin 0.4 mg Q5MINP PRN SL 08/16/24 21:00 Morphine Sulfate 2 mg Q30M PRN IV 08/16/24 21:00 Amlodipine Besylate 10 mg DAILY PO 08/17/24 10:00 08/20/24 09:39 10 MG Labetalol HCl 5 mg Q2HPRN PRN IV 08/17/24 01:45 08/17/24 08:51 5 MG Heparin Sodium (Porcine) 5,000 units Q12HR SC 08/17/24 10:00 08/18/24 10:19 5,000 UNITS Atorvastatin Calcium 40 mg HS PO 08/18/24 22:00 08/19/24 21:30 40 MG Zinc Acetate/ Diphenhydramine 1 applic Q6HP PRN TOP 08/17/24 15:45 Cholecalciferol 4,000 unit DAILY PO 08/19/24 10:00 08/20/24 09:39 4,000 UNIT Diagnostic Test (Pha) 1 strip ACHS 08/18/24 22:00 08/20/24 11:50 1 STRIP Insulin Human Regular ACHS SC 08/18/24 22:00 08/19/24 21:28 3 UNITS Dextrose 50 ml UD PRN IV 08/18/24 17:30 Carbidopa/Levodopa 1 tab QID PO 08/18/24 22:15 08/20/24 12:50 1 TAB Examination Young male patient lying in bed, in no acute distress General: Afebrile, palor, mucosae are moist. Resting tremor noticed of the upper extremity. Cardiovascular: Regular S1 and S2. No murmurs, gallops or rubs. No JVD elevation. No pedal edema Respiratory: Normal B/L air entry on room air. Clear lung sounds on auscultation Abdomen: Soft, nontender, nondistended, normoactive bowel sounds, no rebound tenderness, no organomegaly, no masses. Right-sided costovertebral angle tenderness present. Genitourinary: Deferred MSK/skin: Mobilizes 4 limbs. Skin is dry and warm Neurological: Right upper and lower extremity have motor weakness against resistance, no sensory impairment. No facial asymmetry noticed. Nyfyds-uz-beog testing is normal. Psych/Mental Status: A/Ox4 laboratory and microbiology Laboratory Tests 08/20/24 03:39 Test 08/20/24 03:39 Range/Units Serum Glucose 101 74-106 mg/dL Labs and/or images reviewed: Labs reviewed by me, Image(s) reviewed by me Problem List/Assessment/Plan Problem List/Assessment/Plan Generalized weakness and right-sided weakness secondary to Parkinson disease versus Fabry disease Ruled out acute stroke CT head completed 08/17, unremarkable for acute intracranial pathology MRI brain - No evidence of acute infarction, intracranial hemorrhage, mass effect or hydrocephalus. Doppler ultrasound of the carotids is unremarkable Echocardiogram completed, normal LV size and dimension. LVEF 55 %. Grade 1 diastolic dysfunction. Normal structural heart. Neurologist consulted - Sinemet 25/100 mg q.i.d. Started aspirin 81 mg and atorvastatin 40 mg daily MUMTAZ secondary to questionable vasomotor nephropathy on likely CKD 3B Nephrotic syndrome possible diabetic nephropathy versus others - Rule out Fabry/amyloidosis/diabetic nephropathy disease Creatinine 2.16 on arrival, GFR 34 Baseline creatinine 1.90, GFR 40 on 08/05/2024 Finance Advisor consulted - Scheduled kidney biopsy for elevation of nephrotic syndrome suspect Fabry's disease. Radiologist consulted - renal biopsy 08/21 - NPO starting midnight. FENA 0.3 Protein/creatinine ratio 4.18 Urine microalbumin greater than 3800. Uncontrolled Hypertension Hypertensive heart disease Low likelihood of CHF BNP 9 Continue home medication amlodipine 10 mg daily IV labetalol 5 mg q.2h p.r.n. for SBP greater than 150 mmHg Anemia of chronic kidney disease Treat underlying cause Likely seborrheic dermatitis Topical Benadryl cream. Ruled out lower extremity DVT Extremity venous study is unremarkable for DVT Ruled out pyelonephritis at this point UA is unremarkable for UTI. Renal ultrasound and abdominal CT scan completed, shows no pathology. Parkinson's disease Continue home medication carbidopa/levodopa daily Type 2 diabetes mellitus hemoglobin A1c 6.5 Initiated mild ISS Urine microalbumin greater than 3800 History of arthritis Monitor DVT prophylaxis Heparin 5000 units sc b.i.d. Plan discussed with patient in which all questions have been answered Goals of care discussed with patient for more than 22 minutes, full code status Case discussed with Dr. Bennett. Kidney biopsy pending per nonprofit financial controller. Rule out fabry disease. Plan discussed with: Patient, Daughter (over call) Date of Service: Aug 20, 2024 Billing Provider: MARIANN MADRIGAL MD Common Visit Codes: [id number] INP/OBS CARE(HIGH) LOBO DAVIS RESIDENT Aug 20, 2024 18:19 MARIANN MADRIGAL MD Aug 21, 2024 10:03
--- NOTE | 2024-08-20 20:23 | DVHPN2 ---
Progress Note - Dictate Date Seen: Aug 20, 2024 Medical Necessity Reason Pt with a Central, PICC or Fol: No Subjective Mr. Ross is a right-handed gentleman with a history of hypertension, diabetes, he came to the hospital on 08/16/2024 with a chief company of general weakness, heaviness, difficult moving the legs/gait disturbance. I have seen and examined the patient, discussed with his nurse, Dr. Nolan. She is alert and oriented x3, she reports not doing well, he complained right-sided weakness (no drift in the right arm and the leg on physical examination), he was difficult to turning in the bed, he reports the Sinemet only helps for 2-3 hours For about one year, she has daily painful muscle spasms from the right neck base all the way to the fingers, the spasms happens anytime UDS, 08/18/2024: Negative Urinalysis, 08/16/2024: No UTI WBC/HB/PLT/MCV, 08/18/2024: 4.9/9.8/240/88.7 BUN/CR, 08/18/2024: 38/2.31 HGB A1c, 08/16/2024: 6.5 Liver function tests, 08/17/2024: unremarkable Vitamin B12, 08/16/2024: 382 TSH, 08/16/2024: 2.69 Echocardiogram, 08/17/2024: Normal left ventricular size and dimension. Normal left ventricular systolic function estimated ejection fraction 55%. There is a grade 1 diastolic dysfunction. Normal right ventricular size and dimension. Normal right ventricular systolic function. Normal biatrial size and dimension. Normal aortic valve structure and function. Normal mitral valve structure and function. Normal normal tricuspid valve structure and function. The pulmonary valve is grossly normal. No pericardial effusion Carotid Doppler, 08/17/24: 1. No evidence of hemodynamically significant stenosis within the bilateral carotid arterial systems. 2. Antegrade flow within bilateral vertebral arteries CT head, 08/18/2024: No evidence of acute infarction, intracranial hemorrhage, mass effect or hydrocephalus (I see evidence suggestive of neurocysticercosis) MRI heade, 08/18/2024: No evidence of acute infarction, intracranial hemorrhage, mass effect or hydrocephalus. vital signs Vital Sign Date Time Temp Pulse Resp B/P (MAP) Pulse Ox O2 Delivery O2 Flow Rate FiO2 08/20/24 16:59 97.6 94 19 147/83 (104) 98 97.6 08/20/24 08:00 Room Air* 0 21 Total Intake and Output 08/19/24 08/19/24 08/20/24 15:00 23:00 07:00 Intake Total 1075 ml 0 ml Output Total 400 ml 475 ml Balance 675 ml -475 ml medications Current Medications Medications Dose Ordered Sig/Nicol Route Start Time Stop Time Status Last Admin Dose Admin Sodium Chloride 10 ml Q8HR IV 08/16/24 22:00 08/20/24 14:00 10 ML Acetaminophen 325 mg Q4HP PRN PO 08/16/24 21:00 08/19/24 18:36 325 MG Ondansetron HCl 4 mg Q4HP PRN IV 08/16/24 21:00 Nitroglycerin 0.4 mg Q5MINP PRN SL 08/16/24 21:00 Morphine Sulfate 2 mg Q30M PRN IV 08/16/24 21:00 Amlodipine Besylate 10 mg DAILY PO 08/17/24 10:00 08/20/24 09:39 10 MG Labetalol HCl 5 mg Q2HPRN PRN IV 08/17/24 01:45 08/17/24 08:51 5 MG Heparin Sodium (Porcine) 5,000 units Q12HR SC 08/17/24 10:00 08/18/24 10:19 5,000 UNITS Atorvastatin Calcium 40 mg HS PO 08/18/24 22:00 08/19/24 21:30 40 MG Zinc Acetate/ Diphenhydramine 1 applic Q6HP PRN TOP 08/17/24 15:45 Cholecalciferol 4,000 unit DAILY PO 08/19/24 10:00 08/20/24 09:39 4,000 UNIT Diagnostic Test (Pha) 1 strip ACHS 08/18/24 22:00 08/20/24 17:00 1 STRIP Insulin Human Regular ACHS SC 08/18/24 22:00 08/19/24 21:28 3 UNITS Dextrose 50 ml UD PRN IV 08/18/24 17:30 Carbidopa/Levodopa 1 tab QID PO 08/18/24 22:15 08/20/24 18:36 1 TAB Melatonin 5 mg HS PO 08/20/24 22:00 objective General: the patient is well developed and nourished. No acute distress. MENTAL STATUS: Awake and alert. Oriented to person, place, time and general circumstances. Able to give personal history SPEECH, LANGUAGE, HIGHER CORTICAL FUNCTION: no aphasia, but his voice is soft CRANIAL NERVES: Facial sensation intact in all three divisions bilaterally. Mandibular strength intact. Facial muscles symmetrical and strength intact, diminished facial expression and blinking. Hearing grossly normal to voice. SENSATION: Sensation to touch and pinprick is normal. MOTOR: Normal tone in the upper and lower extremity. Normal muscle bulk. No fasciculations. Thought tremors noticed in the right hand. He was bradykinesia . Muscle strength of the major groups in the extremities is 5/5. REFLEXES: Deep tendon reflexes are symmetrical. No pathological reflexes. CEREBELLAR/COORDINATION: Finger to nose is normal bilaterally. GAIT/STATION: deferred. laboratory and microbiology Laboratory Tests 08/20/24 03:39 Test 08/20/24 03:39 Range/Units Serum Glucose 101 74-106 mg/dL Problem List Parkinson's disease Gait disturbance secondary to Parkinson's disease Tremors secondary to Parkinson's disease Bradykinesia secondary to come Parkinson's disease Overall his Parkinson's symptoms are worse Assessment/Plan Monitoring Supportive treatment Telemetry Sinemet 25/100 mg q.i.d. Up to chair Physical therapy Follow up with me on discharge This medical document was created using an electronic medical record system with [email or web address] dictation system. Although this document has been carefully reviewed, there may still be some phonetic and typographical errors. These areas are purely typographical due to imperfections of the software programs, and do not reflect any compromise in the patient's medical care. Prognosis poor Plan discussed with: Patient, Other Total Time (mins): 35 DALTON LAY MD Aug 20, 2024 20:23
[2024-08-20] MEDS: MELATONIN 5 MG TAB PO SCH (21:31)
[2024-08-21] VITALS (7 sets, daily range): BP systolic 126–144; BP diastolic 73–86; PULSE 81–96; RESP 16–19; TEMP 97.5–98.4; O2SAT 97–98
[2024-08-21 06:53] LABS: Chloride 106 mmol/L (98-107); Potassium 4.1 mmol/L (3.5-5.1); Sodium 140 mmol/L (136-145)
[2024-08-21 06:54] LABS: Anion Gap 9 (5-15); Calcium 9.3 mg/dL (8.7-10.4); Carbon Dioxide 25 mmol/L (20-31)
[2024-08-21 06:59] LABS: BUN/Creatinine Ratio 18.8 (10.0-20.0); Blood Urea Nitrogen 44 mg/dL (9-23); Glucose 124 mg/dL (74-106)
[2024-08-21] MEDS: MIDAZOLAM HCL 2MG/2ML 2ml VIAL (1mg/ml) IV ONE (08:30)
[2024-08-21] MEDS: fentaNYL CITRATE 100 MCG/2 ML VL IV ONE (08:30)
--- NOTE | 2024-08-21 09:27 | DVH ---
US US GUIDANCE FOR NEEDLE PLACEME, HISTORY: NON TARGETED RENAL BX PROCEDURE: Informed consent was obtained. Limited ultrasound of the left kidney was obtained. The ov erlying skin was prepped with chlorhexidine which was allowed to dry and draped in the usual sterile fashion. Time out was performed. The skin and soft tissue were infiltrated with 2% lidocaine, and IV sedation was administered. Under real-time ultrasound guidance, 1 biopsy specimen was obtained using Biopince 18 gauge core biopsy needle. 10 minutes of manual pressure was held. Post biopsy scan was pe rformed. No immediate complication was noted. SEDATION: Dr. Agustin Lin was personally responsible for the administration of moderate sedation during the procedure performed, including the use of an independent trained observer who had no other duties during the procedure. The drugs utilized were IV fentanyl and versed (see nursing log for details). The total time of supervision by the attending physician was approximately 30 minutes. FINDINGS: Limited intraprocedural ultrasound demonstrates biopsy needle within the lower renal cortex of left kidney. Small post procedural hematoma is noted. IMPRESSION: Ultrasound biopsy of the left kidney. Pathology results pending. Plan: 1 hour supine with rolled towel under left side. Then 3 additional hours bedrest, supine.
[2024-08-21] MEDS: NOURIANZ PO SCH (09:54)
[2024-08-21 14:06] LABS: Antimyeloperoxidase (MPO) Ab <0.2 units (0.0-0.9); Antiproteinase 3 (PR-3) Ab <0.2 units (0.0-0.9)
--- NOTE | 2024-08-21 14:17 | DVHPN2 ---
Progress Note - Dictate Date Seen: Aug 21, 2024 Medical Necessity Reason Pt with a Central, PICC or Fol: No Subjective NAD IR planned for biopsy today maori translation by family vital signs Vital Sign Date Time Temp Pulse Resp B/P (MAP) Pulse Ox O2 Delivery O2 Flow Rate FiO2 08/21/24 12:34 97.5 90 16 143/78 (99) 98 97.5 08/21/24 08:14 Room Air* 0 21 Total Intake and Output 08/20/24 08/20/24 08/21/24 15:00 23:00 07:00 Intake Total 418 ml 118 ml Output Total 250 ml 300 ml 450 ml Balance -250 ml 118 ml -332 ml medications Current Medications Medications Dose Ordered Sig/Nicol Route Start Time Stop Time Status Last Admin Dose Admin Sodium Chloride 10 ml Q8HR IV 08/16/24 22:00 08/21/24 12:05 10 ML Acetaminophen 325 mg Q4HP PRN PO 08/16/24 21:00 08/19/24 18:36 325 MG Ondansetron HCl 4 mg Q4HP PRN IV 08/16/24 21:00 Nitroglycerin 0.4 mg Q5MINP PRN SL 08/16/24 21:00 Morphine Sulfate 2 mg Q30M PRN IV 08/16/24 21:00 Amlodipine Besylate 10 mg DAILY PO 08/17/24 10:00 08/21/24 09:54 10 MG Labetalol HCl 5 mg Q2HPRN PRN IV 08/17/24 01:45 08/17/24 08:51 5 MG Heparin Sodium (Porcine) 5,000 units Q12HR SC 08/17/24 10:00 08/18/24 10:19 5,000 UNITS Atorvastatin Calcium 40 mg HS PO 08/18/24 22:00 08/20/24 21:31 40 MG Zinc Acetate/ Diphenhydramine 1 applic Q6HP PRN TOP 08/17/24 15:45 Cholecalciferol 4,000 unit DAILY PO 08/19/24 10:00 08/21/24 09:53 4,000 UNIT Diagnostic Test (Pha) 1 strip ACHS 08/18/24 22:00 08/21/24 11:44 1 STRIP Insulin Human Regular ACHS SC 08/18/24 22:00 08/19/24 21:28 3 UNITS Dextrose 50 ml UD PRN IV 08/18/24 17:30 Carbidopa/Levodopa 1 tab QID PO 08/18/24 22:15 08/21/24 12:04 1 TAB Melatonin 5 mg HS PO 08/20/24 22:00 08/20/24 21:31 5 MG Patient Own Medication 20 mg DAILY PO 08/21/24 10:00 08/21/24 09:54 20 MG objective middle aged male mild tremor mild edema no rios rrr laboratory and microbiology Laboratory Tests 08/21/24 05:50 08/20/24 03:39 Test 08/21/24 05:50 Range/Units Serum Glucose 124 H 74-106 mg/dL Assessment/Plan Acute kidney injury superimposed Chronic Kidney Disease secondary hemodynamic mediated Chronic kidney disease stage IIIB followed in my clinic Nephrotic syndrome possible diabetic nephropathy versus others Patient has multiple symptoms Parkinson's syndrome Paresthesia bilateral hands Diabetes mellitus type 2 Hypertension Anemia of chronic kidney disease Kidney function stabilize stage IIIB Increased urine output Strict I&Os Kidney ultrasound reported WNL Blood pressure control Insulin sliding scale Scheduled kidney biopsy for elevation of nephrotic syndrome suspect Fabry's disease, amyloidosis, diabetic nephropathy; will obtain outpatient renal clinic with Dr. Fernandez Plan discussed with: Patient OSKAR ALVAREZ MD Aug 21, 2024 14:17
--- NOTE | 2024-08-21 14:35 | DVHPNRES ---
Progress Note Date Seen: Aug 21, 2024 Resident Creating Document: LOBO DAVIS RESIDENT Medical Necessity Reason Pt with a Central, PICC or Fol: No Subjective Review of Systems Viet Ross is a 59-year-old male patient with PMHx of type 2 diabetes mellitus since 2007, hypertension, parkinsonism who presented to the ER with the complaint of generalized weakness and right-sided weakness along with right flank pain for the past 1 week. Patient was seen in the ER with similar complaints 2 weeks earlier, he reports feeling very tired and decreased strength in his hands. Says that he has been experiencing fever and chills for the past 2 days associated with nausea but no vomiting or abdominal pain. He denies constipation or diarrhea. Denies any history of fall or seizures or trauma. Patient denies any rash. He reports that he has been urinating a lot and that right abdomen under the ribs hurt. History taking was completed with the help of aircraft parts assembler. Past medical history Type 2 diabetes mellitus since 2007, hypertension, parkinsonism Past surgical history Unremarkable Social history Lives with , can ambulate. Denies smoking, drinks socially, denies illicit drug use Allergic history Unremarkable 08/17 - Patient is seen and examined at bedside. Reports feeling weak and fatigued. Right upper and lower extremity motor weakness against resistance as compared to the left side. Right-sided costovertebral angle tenderness present. CT head completed which is unremarkable for acute intracranial pathology MRI in his pending. Carotid Doppler is unremarkable and lower extremity Doppler results unremarkable. Nephrology consulted for probable CKD. 08/19 - patient is seen ambulating with the help of 2 wheel walker. No gait noticed. Reports pitting weak. Renal biopsy 08/20. NPO starting midnight. 08/20 - patient had heparin on 08/19 therefore biopsy was rescheduled to 08/21. NPO starting midnight. Talked with the daughter over the phone call, all questions have been answered. Patient wants something for the sleep, melatonin 5 mg HS started. 08/21 - patient reports feeling better. Overnight neurologist started Nourianz 20 mg daily. Renal biopsy completed today. Renal diet started. Creatinine stable at 2.3 Objective vital signs Vital Sign Date Time Temp Pulse Resp B/P (MAP) Pulse Ox O2 Delivery O2 Flow Rate FiO2 08/21/24 12:34 97.5 90 16 143/78 (99) 98 97.5 08/21/24 08:14 Room Air* 0 21 Total Intake and Output 08/20/24 08/20/24 08/21/24 15:00 23:00 07:00 Intake Total 418 ml 118 ml Output Total 250 ml 300 ml 450 ml Balance -250 ml 118 ml -332 ml medications Current Medications Medications Dose Ordered Sig/Nicol Route Start Time Stop Time Status Last Admin Dose Admin Sodium Chloride 10 ml Q8HR IV 08/16/24 22:00 08/21/24 12:05 10 ML Acetaminophen 325 mg Q4HP PRN PO 08/16/24 21:00 08/19/24 18:36 325 MG Ondansetron HCl 4 mg Q4HP PRN IV 08/16/24 21:00 Nitroglycerin 0.4 mg Q5MINP PRN SL 08/16/24 21:00 Morphine Sulfate 2 mg Q30M PRN IV 08/16/24 21:00 Amlodipine Besylate 10 mg DAILY PO 08/17/24 10:00 08/21/24 09:54 10 MG Labetalol HCl 5 mg Q2HPRN PRN IV 08/17/24 01:45 08/17/24 08:51 5 MG Heparin Sodium (Porcine) 5,000 units Q12HR SC 08/17/24 10:00 08/18/24 10:19 5,000 UNITS Atorvastatin Calcium 40 mg HS PO 08/18/24 22:00 08/20/24 21:31 40 MG Zinc Acetate/ Diphenhydramine 1 applic Q6HP PRN TOP 08/17/24 15:45 Cholecalciferol 4,000 unit DAILY PO 08/19/24 10:00 08/21/24 09:53 4,000 UNIT Diagnostic Test (Pha) 1 strip ACHS 08/18/24 22:00 08/21/24 11:44 1 STRIP Insulin Human Regular ACHS SC 08/18/24 22:00 08/19/24 21:28 3 UNITS Dextrose 50 ml UD PRN IV 08/18/24 17:30 Carbidopa/Levodopa 1 tab QID PO 08/18/24 22:15 08/21/24 12:04 1 TAB Melatonin 5 mg HS PO 08/20/24 22:00 08/20/24 21:31 5 MG Patient Own Medication 20 mg DAILY PO 08/21/24 10:00 08/21/24 09:54 20 MG Examination Young male patient lying in bed, in no acute distress General: Afebrile, palor, mucosae are moist. Resting tremor noticed of the upper extremity. Cardiovascular: Regular S1 and S2. No murmurs, gallops or rubs. No JVD elevation. No pedal edema Respiratory: Normal B/L air entry on room air. Clear lung sounds on auscultation Abdomen: Soft, nontender, nondistended, normoactive bowel sounds, no rebound tenderness, no organomegaly, no masses. Right-sided costovertebral angle tenderness present. Dressing over biopsy site intact clean and dry. Genitourinary: Deferred MSK/skin: Mobilizes 4 limbs. Skin is dry and warm Neurological: Resolving Right upper and lower extremity have motor weakness against resistance, no sensory impairment. No facial asymmetry noticed. [id number] testing is normal. Psych/Mental Status: A/Ox4 laboratory and microbiology Laboratory Tests 08/21/24 05:50 08/20/24 03:39 Test 08/21/24 05:50 Range/Units Serum Glucose 124 H 74-106 mg/dL Labs and/or images reviewed: Labs reviewed by me, Image(s) reviewed by me Problem List/Assessment/Plan Problem List/Assessment/Plan Generalized weakness and right-sided weakness secondary to progressive Parkinson disease versus Fabry disease Ruled out acute stroke Progressive Parkinson disease CT head completed 08/17, unremarkable for acute intracranial pathology MRI brain - No evidence of acute infarction, intracranial hemorrhage, mass effect or hydrocephalus. Doppler ultrasound of the carotids is unremarkable Echocardiogram completed, normal LV size and dimension. LVEF 55 %. Grade 1 diastolic dysfunction. Normal structural heart. Neurologist consulted - Sinemet 25/100 mg q.i.d. and Started aspirin 81 mg and atorvastatin 40 mg daily MUMTAZ secondary to questionable vasomotor nephropathy on likely CKD 3B Nephrotic syndrome possible diabetic nephropathy versus others - Rule out Fabry/amyloidosis/diabetic nephropathy disease Creatinine stable at 2.3 Baseline creatinine 1.90, GFR 40 on 08/05/2024 Yacht Rigger consulted - kidney biopsy completed 08/21. FENA 0.3 Protein/creatinine ratio 4.18 Urine microalbumin greater than 3800. Kidney ultrasound unremarkable JANINE negative, Anca studies pending, complement within normal limits, serum protein electrophoresis study pending Uncontrolled Hypertension Hypertensive heart disease Low likelihood of CHF BNP 9 Continue home medication amlodipine 10 mg daily IV labetalol 5 mg q.2h p.r.n. for SBP greater than 150 mmHg Anemia of chronic kidney disease Treat underlying cause Likely seborrheic dermatitis Topical Benadryl cream. Ruled out lower extremity DVT Extremity venous study is unremarkable for DVT Ruled out pyelonephritis at this point UA is unremarkable for UTI. Renal ultrasound and abdominal CT scan completed, shows no pathology. Parkinson's disease Continue home medication carbidopa/levodopa daily Type 2 diabetes mellitus hemoglobin A1c 6.5 Initiated mild ISS Urine microalbumin greater than 3800 History of arthritis Monitor DVT prophylaxis Heparin 5000 units sc b.i.d. Diet Renal diet Discharge planning initiated. Patient will be discharged with [facility] for PT and DME equipments. Plan discussed with patient in which all questions have been answered Goals of care discussed with patient for more than 22 minutes, full code status Case discussed with Dr. Bennett. Kidney biopsy completed. Plan discussed with: Patient My Orders My Orders Orders - LOBO DAVIS Procedure Category Date Status Time Melatonin (Melatonin) [facility] 08/20/24 In Process 22:00 Us Guidance For 08/21/24 Resulted Needle Placeme Date of Service: Aug 21, 2024 Billing Provider: MARIANN MADRIGAL MD Common Visit Codes: [id number] INP/OBS CARE(HIGH) LOBO DAVIS Aug 21, 2024 14:34 MARIANN MADRIGAL MD Aug 22, 2024 19:01
[2024-08-22 01:16] VITALS: BP 141/82; PULSE 84; RESP 19; TEMP 98; O2SAT 97
[2024-08-22 05:00] VITALS: BP 134/76; PULSE 77; RESP 19; TEMP 98.2; O2SAT 97
[2024-08-22 06:24] LABS: Chloride 105 mmol/L (98-107); Potassium 4.2 mmol/L (3.5-5.1); Sodium 139 mmol/L (136-145)
[2024-08-22 06:25] LABS: Anion Gap 10 (5-15); Calcium 9.3 mg/dL (8.7-10.4); Carbon Dioxide 24 mmol/L (20-31)
[2024-08-22 06:30] LABS: BUN/Creatinine Ratio 20.6 (10.0-20.0); Blood Urea Nitrogen 44 mg/dL (9-23); Glucose 91 mg/dL (74-106)
[2024-08-22 07:30] VITALS: PULSE 86; RESP 17; O2SAT 98
[2024-08-22 09:00] VITALS: BP 144/80; PULSE 86; RESP 17; TEMP 98.2; O2SAT 98
[2024-08-22] MEDS ORDERED: DOCUSATE SOD 100 MG CAP PO SCH (10:00)
--- NOTE | 2024-08-22 10:44 | DVHDSRES ---
Discharge Summary Date of Admission Resident Creating Document: LOBO DAVIS RESIDENT Aug 16, 2024 at 21:00 Date of Discharge: Aug 22, 2024 Labs/Diagnostic Data: Laboratory Results Test 08/22/24 06:08 08/22/24 05:21 08/20/24 03:39 08/18/24 19:20 POC Glucose 89 mg/dl (70-106) Sodium Level 139 mmol/L (136-145) Potassium Level 4.2 mmol/L (3.5-5.1) Chloride Level 105 mmol/L (98-107) Carbon Dioxide Level 24 mmol/L (20-31) Anion Gap 10 (5-15) Blood Urea Nitrogen 44 mg/dL (9-23) Creatinine 2.14 mg/dL (0.700-1.30) Glomerular Filtration Rate Calc 35 mL/min (>90) BUN/Creatinine Ratio 20.6 (10.0-20.0) Serum Glucose 91 mg/dL (74-106) Calcium Level 9.3 mg/dL (8.7-10.4) White Blood Count 5.9 10^3/uL (4.4-10.8) Red Blood Count 3.78 10^6/uL (4.5-5.90) Hemoglobin 11.3 g/dL (13.5-17.5) Hematocrit 33.5 % (41.0-53.0) Mean Corpuscular Volume 88.6 fL (80.0-100.0) Mean Corpuscular Hemoglobin 30.0 pg (28.0-32.0) Mean Corpuscular Hemoglobin Concent 33.8 g/dL (32.0-36.0) Red Cell Distribution Width 14.9 % (11.8-14.3) Platelet Count 299 10^3/uL (140-450) Mean Platelet Volume 7.0 fL (6.9-10.8) Neutrophils (%) (Auto) 62.1 % (37.0-80.0) Lymphocytes (%) (Auto) 24.9 % (10.0-50.0) Monocytes (%) (Auto) 9.1 % (0.0-12.0) Eosinophils (%) (Auto) 3.0 % (0.0-7.0) Basophils (%) (Auto) 0.9 % (0.0-2.0) Neutrophils # (Auto) 3.6 10 ^3/uL (1.6-8.6) Lymphocytes # (Auto) 1.5 10 ^3/uL (0.4-5.4) Monocytes # (Auto) 0.5 10 ^3/uL (0-1.3) Eosinophils # (Auto) 0.2 10 ^3/uL (0-0.8) Basophils # (Auto) 0.1 10 ^3/uL (0-0.2) Nucleated Red Blood Cells 0.0 % Anti-Nuclear Antibody Screen Negative (Negative) Anti-Proteinase 3 (c-ANCA) <0.2 units (0.0-0.9) Myeloperoxidase Antibody <0.2 units (0.0-0.9) Complement C3 142 mg/dL (82-167) Complement C4 36 mg/dL (12-38) Rapid Plasma Reagin Non reactive (Non Reactive) Test 08/18/24 05:49 08/18/24 05:00 08/17/24 05:43 08/17/24 05:16 Hepatitis B Surface Antigen Negative (Negative) Hepatitis C Antibody Negative (Negative) Urine Creatinine 203.93 mg/dL (30.0-125.0) Urine Microalbumin > 3800.0 mg/L (<30.0) Urine Protein/Creatinine Ratio 4.18 Urine Sodium 36 mmol/L (40-220) Urine Total Protein 852.4 mg/dL (1-14) Urine Opiates Screen Neg (NEGATIVE) Urine Fentanyl Screen Neg (NEGATIVE) Urine Barbiturates Screen Neg (NEGATIVE) Urine Phencyclidine Screen Neg (NEGATIVE) Urine Amphetamines Screen Neg (NEGATIVE) Urine Benzodiazepines Screen Neg (NEGATIVE) Urine Cocaine Screen Neg (NEGATIVE) Urine Cannabinoids Screen Neg (NEGATIVE) Folic Acid 14.33 ng/mL (>5.38) Phosphorus Level 4.2 mg/dL (2.4-5.1) Magnesium Level 2.2 mg/dL (1.6-2.6) Total Bilirubin 0.4 mg/dL (0.2-1.0) Aspartate Amino Transferase (AST) 29 U/L (13-40) Alanine Aminotransferase (ALT) < 9 U/L (7-40) Alkaline Phosphatase 77 U/L (46-116) Parathyroid Hormone (Intact) 60.0 pg/mL (18.4-80.1) Test 08/16/24 22:20 08/16/24 17:28 08/16/24 16:59 08/16/24 16:35 Prothrombin Time 10.9 sec (9.3-11.8) Prothrombin Time INR 1.03 (0.9-1.15) Activated Partial Thromboplast Time 27.6 SEC (24.5-34.5) Urine Color Light-yellow (Yellow) Urine Clarity Clear (Clear) Urine pH 6.0 (5.0-9.0) Urine Specific [place] 1.016 (1.001-1.035) Urine Protein 3+ (Negative) Urine Ketones Negative (Negative) Urine Blood 2+ /uL (Negative) Urine Nitrite Negative (Negative) Urine Bilirubin Negative (Negative) Urine Urobilinogen Normal mg/dL (Negative) Urine Leukocyte Esterase Negative /uL (Negative) Urine RBC 3 /hpf (0 - 3) Urine WBC 1 /hpf (0 - 3) Urine Squamous Epithelial Cells Few /hpf (<5) Urine Bacteria None seen /hpf (None Seen) Urine Glucose 3+ mg/dL (Normal) SARS-CoV-2 Antigen (Rapid) Negative (NEGATIVE) Hemoglobin A1c 6.5 % A1C (<5.7) Lactic Acid Level 0.9 mmol/L (0.4-2.0) B-Type Natriuretic Peptide 9.47 pg/mL (0-100) Vitamin B12 Level 382 pg/mL (211-911) Vitamin D 25-Hydroxy 65.5 ng/mL (30.0-100) Thyroid Stimulating Hormone (TSH) 2.69 uIU/mL (0.55-4.78) Other Laboratory Tests 08/22/24 05:21 08/20/24 03:39 Brief Hx & Hospital Course: Viet Ross is a 59-year-old male patient with PMHx of type 2 diabetes mellitus since 2007, hypertension, parkinsonism who presented to the ER with the complaint of generalized weakness and right-sided weakness along with right flank pain for the past 1 week. Patient was seen in the ER with similar complaints 2 weeks earlier, he reports feeling very tired and decreased strength in his hands. Says that he has been experiencing fever and chills for the past 2 days associated with nausea but no vomiting or abdominal pain. He denies constipation or diarrhea. Denies any history of fall or seizures or trauma. Patient denies any rash. He reports that he has been urinating a lot and that right abdomen under the ribs hurt. History taking was completed with the help of epitaxial reactor technician. Past medical history Type 2 diabetes mellitus since 2007, hypertension, parkinsonism Past surgical history Unremarkable Social history Lives with , can ambulate. Denies smoking, drinks socially, denies illicit drug use Allergic history Unremarkable During the hospital workup, head CT scan was completed which was unremarkable for acute intracranial pathology. Patient was started on aspirin 81 mg and atorvastatin 40 mg. Consequently carotid Doppler was performed which was unremarkable. MRI brain showed no acute intracranial pathology. Echocardiogram completed, normal LV size and dimension. LVEF 55 %. Grade 1 diastolic dysfunction. Normal structural heart. Neurology was consulted and Stroke was ruled out. Patient was diagnosed with progressive Parkinson disease. Sinemet 25/100 mg was increased from t.i.d. to q.i.d. neurologist also started Nourianz 20 mg daily. For the MUMTAZ on CKD 3B, edger operator Dr Stanford was consulted who knew the patient from his outpatient clinic and recommended kidney biopsy which the patient underwent 08/21. Kidney biopsy was performed to rule out Fabry/amyloidosis/diabetic nephropathy disease. Creatinine later become stable at 2.3. Protein/creatinine ratio 4.18. Urine microalbumin greater than 3800. Kidney ultrasound was completed which was unremarkable. A CT abdomen without contrast was completed which was unremarkable. Complement levels were within normal limits. JANINE was negative. Ruled out pyelonephritis at this point. Given his lower extremity edema and uncontrolled hypertension, BNP was completed which was 9, there was low likelihood of CHF given the unremarkable echocardiogram. Continued his home medication for his blood pressure which was amlodipine 10 mg daily. Lower extremity Doppler was also unremarkable for DVT. Patient underwent physical therapy sessions during the hospital stay, physical therapy was recommended home health services for physical therapy with a 4 wheel walker. academic services professional were consulted and patient was arranged with [facility] for PT and DME equipments. 08/22/2024 - patient is hemodynamically stable, clinically stable, reports no acute complaint. Therefore patient is being discharged home with home health services for PT along with DME equipments. Throughout the hospital stay, patient's daughters were updated regarding the plan and prognosis. Discharge planning was completed with the patient and patient agreed with the plan. Patient was advised to follow up with edger operator outpatient within 7-14 days along with primary care physician within 7-14 days Discharge instruction: - head CT/MRI brain/carotid Doppler unremarkable - ruled out acute stroke - neurologist consulted - progressive Parkinson disease, increased Sinemet to q.i.d. - edger operator consulted for MUMTAZ on CKD 3B, renal biopsy completed 08/21 for ruling out Fabry/amyloidosis/diabetic nephropathy disease Consults/Reason for consult Health Center Manager consulted for MUMTAZ on CKD 3B Neurologist consulted for Parkinson disease and generalized weakness Operations or Procedures ORDERING PHYSICIAN: LOBO DAVIS PROCEDURE(s): THOUS - US GUIDANCE FOR NEEDLE PLACEME REASON: NON TARGETED RENAL BX ORDER NUMBER(s): [id number], ACCESSION NUMBER(s): [id number] US US GUIDANCE FOR NEEDLE PLACEME, HISTORY: NON TARGETED RENAL BX PROCEDURE: Informed consent was obtained. Limited ultrasound of the left kidney was obtained. The overlying skin was prepped with chlorhexidine which was allowed to dry and draped in the usual sterile fashion. Time out was performed. The skin and soft tissue were infiltrated with 2% lidocaine, and IV sedation was administered. Under real-time ultrasound guidance, 1 biopsy specimen was obtained using Vaavudince 18 gauge core biopsy needle. 10 minutes of manual pressure was held. Post biopsy scan was performed. No immediate complication was noted. SEDATION: Dr. Agustin Lin was personally responsible for the administration of moderate sedation during the procedure performed, including the use of an independent trained observer who had no other duties during the procedure. The drugs utilized were IV fentanyl and versed (see nursing log for details). The total time of supervision by the attending physician was approximately 30 minutes. FINDINGS: Limited intraprocedural ultrasound demonstrates biopsy needle within the lower renal cortex of left kidney. Small post procedural hematoma is noted. IMPRESSION: Ultrasound biopsy of the left kidney. Pathology results pending. Plan: 1 hour supine with rolled towel under left side. Then 3 additional hours bedrest, supine. ATED BY: NATAN LIN MD DICTATED DATE/TIME: 08/21/24923 SIGNED BY: NATAN LIN MD SIGNED DATE/TIME: 08/21/24923 CC: ORDERING PHYSICIAN: MEHGANA LOFTON PROCEDURE(s): MBHL - BRAIN HEAD WO CONTRAST REASON: RULE OUT STROKE ORDER NUMBER(s): [id number], ACCESSION NUMBER(s): [id number] PROCEDURE: MRI BRAIN HEAD WO CONTRAST INDICATION: RULE OUT STROKE EXAM DATE: 08/18/2024 08:40 AM COMPARISON: CT head 08/17/2024 TECHNIQUE: MRI of the brain without intravenous contrast. FINDINGS: Diffusion weighted images of the brain demonstrate no evidence of acute infarction. There is no evidence of acute intracranial hemorrhage, extra-axial collection, mass effect, midline shift, herniation or hydrocephalus. The ventricles, sulci and cisterns appear age appropriate. There are minimal nonspecific foci of T2 hyperintensity in the subcortical and periventricular white matter. The signal intensities of the brain parenchyma are otherwise within normal limits. There are no signal abnormalities on the susceptibility weighted sequences. The major vascular flow voids are present. The visualized paranasal sinuses and mastoid air cells are clear. The surrounding soft tissues and osseous structures are unremarkable. IMPRESSION: 1. No evidence of acute infarction, intracranial hemorrhage, mass effect or hydrocephalus. ATED BY: RUTH MCCULLOUGH MD DICTATED DATE/TIME: 08/18/24935 SIGNED BY: RUTH MCCULLOUGH MD SIGNED DATE/TIME: 08/18/24935 CC: ORDERING PHYSICIAN: LOBO DAVIS PROCEDURE(s): CTH - STROKE CTH REASON: ORDER NUMBER(s): [id number], ACCESSION NUMBER(s): [id number] EXAM: CT STROKE CTH HISTORY: Possible stroke. COMPARISON: None TECHNIQUE: Axial images were obtained and reformatted in coronal and sagittal planes. All CT scans at this medical facility are performed using dose modulation techniques as appropriate to a performed exam including the following: Automated exposure control was utilized; adjustment of the MA and/or KV according to patient size; and use of iterative reconstruction technique. CT Dose: CTDI volume is 64.39 mGy. Dose-length product is 1031.94 mGy*cm FINDINGS: Supratentorial Region: No evidence for large acute territorial ischemia. No intracranial hemorrhage is noted. Posterior Fossa: No acute abnormality. Brainstem: Unremarkable. Sellar/Suprasellar Region: Unremarkable. Ventricles, Cisterns, Sulci: Age-appropriate. Orbits: Unremarkable. Paranasal Sinuses: Unremarkable. Mastoid Air Cells: Unremarkable. Vasculature: Unremarkable. Bones/Soft Tissues: No acute abnormality. Other: None. IMPRESSION: 1. No acute intracranial process. The nurse in charge of the patient, Mildred was notified of findings on 08/17/2024 at approximately 10:40 a.m.. RING PHYSICIAN: LOBO DAVIS PROCEDURE(s): CARCL - CAROTID DUPLX W COLOR DOP REASON: R SIDE WEAK ORDER NUMBER(s): [id number], ACCESSION NUMBER(s): [id number] CAROTID DOPPLER ULTRASOUND HISTORY: R SIDE WEAK COMPARISON: None TECHNIQUE: Real time gonzalez scale, color Doppler, and spectral duplex images are obtained through the carotid and vertebral arteries. Findings: Peak systolic velocity right internal carotid artery is 88 cm/s and right common carotid artery is 89 cm/s. Ratio is 1.0. Antegrade flow noted in right vertebral artery. No significant atherosclerotic plaque noted within the right carotid arterial system. Peak systolic velocity left internal carotid artery is 118 cm/s and left common carotid artery is 124 cm/s. Ratio is 1.0. Antegrade flow noted in left vertebral artery. No significant atherosclerotic plaque noted within the left carotid arterial system. Impression: 1. No evidence of hemodynamically significant stenosis within the bilateral carotid arterial systems. 2. Antegrade flow within bilateral vertebral arteries. Stenosis ICA/CCA PSV ratio PSV 0-40% < 1.5 25-110 cm/s 40-59% < 1.8 > 120 cm/s 60-79% 1.8-3.7 > 130 cm/s 80-99% > 3.7 < 25 cm/s, > 250 cm/s ATED BY: NOELLE STEINER DO DICTATED DATE/TIME: 08/17/241304 SIGNED BY: NOELLE STEINER DO SIGNED DATE/TIME: 08/17/241304 CC: ORDERING PHYSICIAN: LOBO DAVIS PROCEDURE(s): BLDVT - BiLat Lower DVT REASON: r/o dvt ORDER NUMBER(s): [id number], ACCESSION NUMBER(s): [id number] Bilateral lower extremity venous duplex Clinical History: r/o dvt Comparison: US RT LOWER DVT on DOS: 08/05/24, US RT UPPER DVT on DOS: 08/05/24 Technique: Duplex Doppler evaluation of the deep venous systems of both lower extremities from the common femoral veins to the popliteal veins including color Doppler and spectral/pulsed waveform analysis was performed. Findings: RIGHT SIDE: The common femoral vein demonstrates appropriate compressibility and waveform variability . There is compressibility/patency of the great saphenous vein at the proximal thigh . The femoral vein demonstrates appropriate compressibility and waveform variability . The deep femoral vein demonstrates appropriate compressibility and waveform variability . The popliteal vein demonstrates appropriate compressibility and waveform variability . There is color flow at the tibioperoneal trunk and in the posterior tibial vein. LEFT SIDE: The common femoral vein demonstrates appropriate compressibility and waveform variability . There is compressibility/patency of the great saphenous vein at the proximal thigh . The femoral vein demonstrates appropriate compressibility and waveform variability . The deep femoral vein demonstrates appropriate compressibility and waveform variability . The popliteal vein demonstrates appropriate compressibility and waveform variability . There is color flow at the tibioperoneal trunk and in the posterior tibial vein. Impression: 1. No right or left femoropopliteal venous thrombosis. ATED BY: REBA WEBB MD DICTATED DATE/TIME: 08/17/24 1255 SIGNED BY: REBA WEBB MD SIGNED DATE/TIME: 08/17/24 1255 CC: ORDERING PHYSICIAN: RIAN AGUILAR MD PROCEDURE(s): ABPL - CT AB PEL WO CON-NO ORAL OR IV REASON: FLANK PAIN , NAUSEA ORDER NUMBER(s): [id number], ACCESSION NUMBER(s): [id number] Exam: CT CT AB PEL WO CON-NO ORAL OR IV History: FLANK PAIN , NAUSEA Comparison Study: None available at time of dictation. TECHNIQUE: Multidetector CT of the abdomen was performed from lung bases to pubic symphysis. Imaging was performed without IV contrast. Axial, coronal and sagittal multiplanar reformats were obtained from the axial data set by the technologist. Radiation Dose Information: CT Dose: CTDI volume is 7.02 mGy. Dose-length product is 356.94 mGy*cm FINDINGS: Evaluation of solid organs is limited due to lack of intravenous contrast use. Findings: Lung Bases: No acute or significant lung base finding. Normal heart size. No pleural or pericardial effusion. Liver: The liver is normal in size. No focal lesions. Gallbladder and Biliary Tree: Unremarkable Spleen: Unremarkable Pancreas: The pancreas is grossly normal in appearance. Adrenal Glands: Unremarkable Kidneys: Kidneys are grossly normal without calculi or hydronephrosis. Bladder: Grossly unremarkable for degree of distention. Bowel: The stomach is grossly normal in appearance. Small bowel and colon are normal in caliber and distribution. The appendix is not visualized; however, no secondary findings of acute appendicitis identified. Ascites: Absent Lymphadenopathy: No mesenteric, retroperitoneal or periportal lymphadenopathy. Abdominal Wall and Mesentery: Unremarkable. Vasculature: The visualized abdominal aorta is normal in size and caliber. Evaluation of abdominal and pelvic vessels is limited due to lack of intravenous contrast. Pelvic Organs: Unremarkable Musculoskeletal: No aggressive focal bony lesions, acute fractures or dislocation. Soft tissues: Unremarkable IMPRESSION: 1. No findings to suggest bowel obstruction. 2. No nephrolithiasis or hydronephrosis. 3. No bladder calculi. Radiation optimization: All CT scans at this facility use at least one of these dose optimization techniques: automated exposure control mA and/or kV adjustment per patient size (includes targeted exams where dose is matched to clinical indication) or iterative reconstruction. HS:Y ATED BY: KITA FLYNN Jr., DO DICTATED DATE/TIME: 08/16/241644 SIGNED BY: KITA FLYNN Jr., SIGNED DATE/TIME: 08/16/241644 CC: Condition at Discharge: Stable Final Diagnosis/Problems List Generalized weakness and right-sided weakness secondary to progressive Parkinson disease versus Fabry disease Ruled out acute stroke Progressive Parkinson disease MUMTAZ secondary to questionable vasomotor nephropathy on likely CKD 3B Nephrotic syndrome possible diabetic nephropathy versus others - Rule out Fabry/amyloidosis/diabetic nephropathy disease - status post kidney biopsy Uncontrolled Hypertension Hypertensive heart disease Low likelihood of CHF Anemia of chronic kidney disease Likely seborrheic dermatitis Ruled out lower extremity DVT Parkinson's disease Type 2 diabetes mellitus hemoglobin A1c 6.5 History of arthritis Ruled out pyelonephritis at this point Discharge Disposition: Home with Health Services Discharge Instruct/Medications Diet: Renal Activity: No Restrictions, As Tolerated Follow Up/Referral: Follow-up with edger operator as outpatient within 7-14 days Follow up with primary care physician within 7-14 days Medications: Per EMR Discharge Statement: "Patient was advised to return to the ER or call 911 if any headaches, dizziness, shortness of breath, chest pain, abdominal pain, bleeding, fevers, or worsening of medical condition. Patient was counseled about treatment plan, medications, possible side effects, patientverbalized understanding. All questions were answered to the best of my ability. This discharge took greater then 30 minutes in planning, reviewing documentation, counseling the patient, and discussing with other team members." ASSESSMENT ASSESSMENT Assessment Generalized weakness and right-sided weakness secondary to progressive Parkinson disease versus Fabry disease Ruled out acute stroke Progressive Parkinson disease Date of Service: Aug 22, 2024 Billing Provider: MARIANN MADRIGAL MD Common Visit Codes: 34294-JLR/OBS DISCH DAY >30min LOBO DAVIS Aug 22, 2024 10:44 MARIANN MADRIGAL MD Aug 22, 2024 18:51
[2024-08-22 12:05] VITALS: BP 144/80; PULSE 86; RESP 17; TEMP 98.2; O2SAT 98
--- NOTE | 2024-08-22 13:15 | DVHPN2 ---
Progress Note - Dictate Date Seen: Aug 22, 2024 Medical Necessity Reason Pt with a Central, PICC or Fol: No Subjective NAD BP stable vital signs Vital Sign Date Time Temp Pulse Resp B/P (MAP) Pulse Ox O2 Delivery O2 Flow Rate FiO2 08/22/24 12:05 98.2 86 17 98 08/22/24 10:15 144/80 08/22/24 07:30 Room Air* 0 21 Total Intake and Output 08/21/24 08/21/24 08/22/24 15:00 23:00 07:00 Intake Total 240 ml 746 ml 505 ml Output Total 800 ml 650 ml Balance 240 ml -54 ml -145 ml medications Current Medications Medications Dose Ordered Sig/Nicol Route Start Time Stop Time Status Last Admin Dose Admin Sodium Chloride 10 ml Q8HR IV 08/16/24 22:00 08/22/24 06:27 10 ML Acetaminophen 325 mg Q4HP PRN PO 08/16/24 21:00 08/19/24 18:36 325 MG Ondansetron HCl 4 mg Q4HP PRN IV 08/16/24 21:00 Nitroglycerin 0.4 mg Q5MINP PRN SL 08/16/24 21:00 Morphine Sulfate 2 mg Q30M PRN IV 08/16/24 21:00 Amlodipine Besylate 10 mg DAILY PO 08/17/24 10:00 08/22/24 10:15 10 MG Labetalol HCl 5 mg Q2HPRN PRN IV 08/17/24 01:45 08/17/24 08:51 5 MG Heparin Sodium (Porcine) 5,000 units Q12HR SC 08/17/24 10:00 08/22/24 10:24 5,000 UNITS Atorvastatin Calcium 40 mg HS PO 08/18/24 22:00 08/21/24 22:24 40 MG Zinc Acetate/ Diphenhydramine 1 applic Q6HP PRN TOP 08/17/24 15:45 Cholecalciferol 4,000 unit DAILY PO 08/19/24 10:00 08/22/24 10:14 4,000 UNIT Diagnostic Test (Pha) 1 strip ACHS 08/18/24 22:00 08/22/24 11:30 1 STRIP Insulin Human Regular ACHS SC 08/18/24 22:00 08/21/24 22:41 3 UNITS Dextrose 50 ml UD PRN IV 08/18/24 17:30 Carbidopa/Levodopa 1 tab QID PO 08/18/24 22:15 08/22/24 06:27 1 TAB Melatonin 5 mg HS PO 08/20/24 22:00 08/21/24 22:32 5 MG Patient Own Medication 20 mg DAILY PO 08/21/24 10:00 08/22/24 10:15 20 MG Docusate Sodium 100 mg BID PO 08/22/24 10:00 Cancel objective middle aged male mild tremor mild edema no rios rrr laboratory and microbiology Laboratory Tests 08/22/24 05:21 08/20/24 03:39 Test 08/22/24 05:21 Range/Units Serum Glucose 91 74-106 mg/dL Assessment/Plan Acute kidney injury superimposed Chronic Kidney Disease secondary hemodynamic mediated Chronic kidney disease stage IIIB followed in my clinic Nephrotic syndrome possible diabetic nephropathy versus others Patient has multiple symptoms Parkinson's syndrome Paresthesia bilateral hands Diabetes mellitus type 2 Hypertension Anemia of chronic kidney disease Kidney function stabilize stage IIIB Increased urine output Strict I&Os Kidney ultrasound reported WNL Blood pressure control Insulin sliding scale Scheduled kidney biopsy for elevation of nephrotic syndrome suspect Fabry's disease, amyloidosis, diabetic nephropathy; will obtain outpatient renal clinic with Dr. Fernandez Plan discussed with: Patient OSKAR ALVAREZ MD Aug 22, 2024 13:15
[2024-08-22] MEDS ORDERED: CAR25T PO (15:23)
[2024-08-26 13:06] LABS: Cytoplasmic (C-ANCA) <1:20 titer (Neg:<1:20); Perinuclear (P-ANCA) <1:20 titer (Neg:<1:20)
== END 2024-08-22 13:58 | disposition home health service (06) | DRG 42 ==
LOC: ER 15:18 → OVERFLOW 21:00 → TELE 21:30 → TELE-WESTW 21:32 → WEST WING 08-19 20:40
PROVIDERS: ADMIT Student in an Organized Health Care Education/Training Program; ATTEND Student in an Organized Health Care Education/Training Program
PROC: 0TB13ZX Excision of Left Kidney, Percutaneous Approach, Diagnostic (ICD-10-PCS; principal; 2024-08-21)
DX: G20.A1 Parkinson's disease without dyskinesia, without mention of fluctuations (principal); N17.0 Acute kidney failure with tubular necrosis; E11.22 Type 2 diabetes mellitus with diabetic chronic kidney disease; E75.21 Fabry (-Anderson) disease; Z20.822 Contact with and (suspected) exposure to COVID-19; D63.1 Anemia in chronic kidney disease; I12.9 Hypertensive chronic kidney disease with stage 1 through stage 4 chronic kidney disease, or unspecified chronic kidney disease; N18.32 Chronic kidney disease, stage 3b; L21.9 Seborrheic dermatitis, unspecified; Z83.3 Family history of diabetes mellitus
CPT/HCPCS: 36415; 70450; 70551; 71045; 74176; 76775; 76942; 80048; 80053; 80307; 81001; 82043; 82306; 82570; 82607; 82746; 82962; 83036; 83520; 83605; 83735; 83880; 83970; 84100; 84155; 84156; 84165; 84300; 84443; 85025; 85610; 85730; 86038; 86160; 86256; 86592; 86803; 86850; 86900; 86901; 87340; 87426; 93306; 93886; 93970; 97110; 97116; 97163; 97530; G0378; J1815; J1885; J2250; J2405

== ENCOUNTER 2025-04-28 20:59 | Inpatient (IN) | payer MEDICAID ==
[~2025-04-28] VITALS: Ht 157.5 cm; Wt 98.3 kg
[~2025-04-28 20:59] MED LIST changes: +ATE50T PO; +CAR25T PO; -CARB25TA79 PO; +GABA-1308 PO
--- NOTE | 2025-04-28 21:32 | ED.PDOC ---
History of Present Illness HPI Comments 59 y/o M is [id number] granddaughter for c/c generalized weakness and altered mental status. Per granddaughter, patient began endorsing to patient on 'feeling off' and 'sick' and 'weak,' today, after running out of all his medication he takes for his comorbidities for unknown duration of time, recently. Significant history of anemia, arthritis, amyloidosis, MUMTAZ, CKF, DM type II w/nephropathy, Fabry disease, HTN w/hear disease, and Parkinson's disease - on 25-200mg Carbidopa-levodopa TID. No known recent sick contact or injuries endorsed. No further acute associated symptoms reported, such as chest pain or shortness of breath. Upon arrival to ED triage, patient was hypertensive at 195/96. Time Seen by MD: 21:05 Primary Care Provider: UNKNOWN Reviewed Notes: Nurses Notes, Medications, Allergies Allergies: Coded Allergies: NO KNOWN ALLERGIES (Unverified , 09/09/19) Home Meds Active Scripts Levodopa W/Carbidopa (SINEMET 25/100MG) 1 Tab Tb, 1 TAB PO QID for 30 Days, #120 TAB Prov:LEANNA KNOTT RESIDENT 08/22/24 Reported Medications Sitagliptin Phosphate (Januvia) 50 Mg Tab, 25 MG PO DAILY for 90 Days, #90 08/19/24 Amlodipine Besylate (Amlodipine Besylate) 10 Mg Tab, 1 TAB PO DAILY for 90 Days, #90 08/19/24 Ergocalciferol (Vitamin D) 50,000 Unit Cap, 1 CAP PO QWEEKLY for 84 Days, #12 08/19/24 Selegiline HCl (Selegiline Hydrochloride) 5 Mg Tab, 1 TAB PO DAILY for 90 Days, #90 08/19/24 Semaglutide (Ozempic) 2 Mg/3 Ml Inj, 0.5 MG SC QWEEKLY for 28 Days, #3 08/19/24 Dapagliflozin Propanediol (Farxiga) 10 Mg Tab, 5 MG PO DAILY for 90 Days, #90 08/19/24 Lidocaine (Lidocaine) 5 % Pad, 1 PATCH TOP DAILY for 30 Days, #30 08/19/24 Gabapentin (Gabapentin) 100 Mg Cap, 1 CAP PO DAILY for 90 Days, #90 08/19/24 Atenolol (TENORMIN TABLET) 50 Mg Tb, 1 TAB PO DAILY, #30 TAB 5 Refills 08/17/24 Information Source: Relative (GrandChild) Mode of Arrival: Ambulatory (with cane walker assistance ) Severity: Moderate Timing: Hours Duration: Since onset Prehospital treatment: None Past Medical History PAST MEDICAL HISTORY: Anemia (of chronic kidney disease ), Arthritis, CKF, DM (Type 2), HTN Past Medical History (Other): MUMTAZ Nephrotic syndrome Fabry/amyloidosis/diabetic nephropathy disease Hypertensive heart disease Parkinson's disease Surgical History (Other): status post kidney biopsy Family History Family History: Reviewed,noncontributory to illness, Family hx of DM Social History Smoker: Non-Smoker Alcohol: Denies ETOH Use Drugs: Denies Drug Use Lives In: Assisted Care (Lives with , can ambulate.) All Other Systems: Reviewed and Negative (Comprehensive systems review obtained and negative except for what is stated in the HPI.) Physical Exam General Appearance: No Apparent Distress, Normal HEENT: Normal ENT Inspection, Pharynx Normal, TMs Normal Neck: Full Range of Motion, Non-Tender, Normal, Normal Inspection Respiratory: Chest Non-Tender, Lungs Clear, No Accessory Muscle Use, No Respiratory Distress, Normal Breath Sounds Cardiovascular: No Edema, No JVD, No Murmur, No Gallop, Normal Peripheral Pulses, Regular Rate/Rhythm Breast Exam: Deferred Gastrointestinal: No Organomegaly, Non Tender, No Pulsatile Mass, Normal Bowel Sounds, Soft Genitalia: Deferred Pelvic: Deferred Rectal: Deferred Extremities: No calf tenderness, Normal capillary refill, Normal inspection, Normal range of motion, Non-tender, No pedal edema Musculoskeletal : Apperance: Normal Neurologic: Alert, experimental mechanic II-XII nml as Tested, No Motor Deficits, Normal Mood, No Sensory Deficits, Other (Pill rolling tremor; flat affect ) Cerebellar Function: Normal Reflexes: Normal Skin: Dry, Normal Color, Warm Lymphatic: No Adenopathy Was a procedure done? Was a procedure done?: No EKG EKG : Pulse Rate (adult): 100 [place]: Normal Cardiac Rhythm: ST Block: None Hypertrophy: None ST: Normal Differential Dx Considerations may include: Encephalopathy, medication noncompliance, hypertensive emergency, hyperglycemia, progressively worsening Parkinson's disease, among others X-Ray, Labs, Meds, VS Vital Signs Date Time Temp Pulse Resp B/P (MAP) Pulse Ox O2 Delivery O2 Flow Rate FiO2 04/28/25 22:14 99 04/28/25 21:32 100 04/28/25 21:16 100 04/28/25 21:15 99.0 102 18 195/96 (129) 99 99.0 Lab Test 04/28/25 22:36 04/28/25 21:46 04/28/25 21:15 Range/Units Troponin I High Sensitivity 15 14 </=54 ng/L White Blood Count 6.3 4.4-10.8 10^3/uL Red Blood Count 3.27 L 4.5-5.90 10^6/uL Hemoglobin 10.3 L 13.5-17.5 g/dL Hematocrit 29.6 L 41.0-53.0 % Mean Corpuscular Volume 90.6 80.0-100.0 fL Mean Corpuscular Hemoglobin 31.5 28.0-32.0 pg Mean Corpuscular Hemoglobin Concent 34.7 32.0-36.0 g/dL Red Cell Distribution Width 14.7 H 11.8-14.3 % Platelet Count 253 140-450 10^3/uL Mean Platelet Volume 7.0 6.9-10.8 fL Neutrophils (%) (Auto) 64.5 37.0-80.0 % Lymphocytes (%) (Auto) 25.0 10.0-50.0 % Monocytes (%) (Auto) 8.3 0.0-12.0 % Eosinophils (%) (Auto) 1.3 0.0-7.0 % Basophils (%) (Auto) 0.9 0.0-2.0 % Neutrophils # (Auto) 4.0 1.6-8.6 10 ^3/uL Lymphocytes # (Auto) 1.6 0.4-5.4 10 ^3/uL Monocytes # (Auto) 0.5 0-1.3 10 ^3/uL Eosinophils # (Auto) 0.1 0-0.8 10 ^3/uL Basophils # (Auto) 0.1 0-0.2 10 ^3/uL Nucleated Red Blood Cells 0.0 % Sodium Level 136 136-145 mmol/L Potassium Level 5.8 *H 3.5-5.1 mmol/L Chloride Level 102 98-107 mmol/L Carbon Dioxide Level 18 L 20-31 mmol/L Anion Gap 16 H 5-15 Blood Urea Nitrogen 106 *H 9-23 mg/dL Creatinine 8.86 H 0.700-1.30 mg/dL Glomerular Filtration Rate Calc 6 >90 mL/min BUN/Creatinine Ratio 12.0 10.0-20.0 Serum Glucose 83 74-106 mg/dL Calcium Level 10.5 H 8.7-10.4 mg/dL Urine Color Colorless Yellow Urine Clarity Clear Clear Urine pH 6.0 5.0-9.0 Urine Specific [place] 1.012 1.001-1.035 Urine Protein 3+ H Negative Urine Ketones Trace Negative Urine Blood 2+ H Negative /uL Urine Nitrite Negative Negative Urine Bilirubin Negative Negative Urine Urobilinogen Normal Negative mg/dL Urine Leukocyte Esterase Negative Negative /uL Urine RBC 2 0 - 3 /hpf Urine Microscopic WBC < 1 0-3 /HPF Urine Squamous Epithelial Cells Few <5 /hpf Urine Amorphous Crystals Few None Seen /hpf Urine Bacteria None seen None Seen /hpf Urine Glucose Normal Normal mg/dL POC Glucose 74 70-106 mg/dl Time of 1ST Reevaluation: 21:25 Reevaluation 1ST: Unchanged Patient Education/Counseling: Other (patient is altered ) Family Education/Counseling: Treatment, Other (need for admission ) Additional Information Previous visits reviewed: September 09, 2019, November 05, 2019, March 11, 2021, August 05, 2024, and August 16, 2024 encounters for hyperglycemia, high blood sugar, arthritis of neck, generalized weakness, and generalized weakness, respectively. The following tests were ordered, and results were reviewed by me: CXR, EKG, BMP, CBC, troponin Additional Information was gathered from interviewing the following independent historians: Granddaughter I reviewed and agreed with the following test results read by other providers: CXR I discussed treatment and results with medical personnel and: Granddaughter SEPSIS Sepsis Screen Physician Orders Chest Portable (04/28/25 21:11) Troponin-I Hs (04/29/25 00:11) Electrocardigram (04/28/25 21:19) Electrocardigram (04/28/25 22:19) Electrocardigram (04/29/25 00:19) Vital Signs Date Time Temp Pulse Resp B/P (MAP) Pulse Ox O2 Delivery O2 Flow Rate FiO2 04/28/25 22:14 99 04/28/25 21:32 100 04/28/25 21:16 100 04/28/25 21:15 99.0 102 18 195/96 (129) 99 99.0 Laboratory Tests Test 04/28/25 21:46 White Blood Count 6.3 10^3/uL (4.4-10.8) Departure 1 Departure Time of Disposition: 23:35 (Patient with a worsening Parkinson's and worsening renal failure. We will admit patient for further workup and expert consultation) Impression: Primary Impression: Renal failure Qualified Codes: N17.9 - Acute kidney failure, unspecified; N18.9 - Chronic kidney disease, unspecified Additional Impressions: Parkinsons Qualified Codes: G20.B1 - Parkinson's disease with dyskinesia, without mention of fluctuations Acute metabolic encephalopathy Hyperkalemia Disposition: ADMITTED INPATIENT Admit to: Med Surg Condition: Guarded Critical Care Note Critical Care Time?: Yes Critical care comment: Hyperkalemia Authorized and Performed by: Afshan Moser MD Total critical care time: Approximately 49 minutes Due to a high probability of clinically significant, life threatening deterioration, the patient required my highest level of preparedness to intervene emergently and I personally spent this critical care time directly and personally managing the patient. This critical care time included obtaining a history; examining the patient; pulse oximetry; ordering and review of studies; arranging urgent treatment with development of a management plan; evaluation of patient's response to treatment; frequent reassessment; and, discussions with other providers. This critical care time was performed to assess and manage the high probability of imminent, life-threatening deterioration that could result in multi-organ failure. It was exclusive of separately billable procedures and treating other patients and teaching time. Please see my other sections and the rest of the note for further information on patient assessment and treatment. Stability Stability form required: No Heart Score Heart Score: Heart Score Response (Comments) Value History N/A 0 EKG N/A 0 Age N/A 0 Risk Factors N/A 0 Troponin N/A 0 Total 0 I personally scribed for AFSHAN MOSER MD ([email or web address]) on 04/28/25 at 21:32. Electronically submitted by Marcio Inman ([email or web address]). I personally scribed for AFSHAN MOSER MD ([email or web address]) on 04/28/25 at 21:34. Electronically submitted by Marcio Inman ([email or web address]). AFSHAN MOSER MD Apr 28, 2025 21:32
--- NOTE | 2025-04-28 21:50 | DVH ---
CHEST RADIOGRAPH Indication: weakness Technique: Single frontal view of the chest was obtained Comparison: XY CHEST PORTABLE on DOS: 08/16/24, XY CHEST PORTABLE on DOS: 08/05/24 FINDINGS: Lines and Tubes: None Lungs: No focal consolidation. Pleura: No effusion. No pneumothorax. Cardiomediastinal contours: Unremarkable Bones: No acute osseous abnormality. IMPRESSION: 1. No acute cardiopulmonary disease.
[2025-04-28 22:00] LABS: Hematocrit 29.6 % (41.0-53.0); Hemoglobin 10.3 g/dL (13.5-17.5); Mean Corpuscular Hemoglobin 31.5 pg (28.0-32.0); Mean Corpuscular Volume 90.6 fL (80.0-100.0); Nucleated Red Blood Cells % 0.0 %
[2025-04-28 22:08] LABS: Chloride 102 mmol/L (98-107)
[2025-04-28 22:09] LABS: Anion Gap 16 (5-15)
[2025-04-28 22:14] LABS: BUN/Creatinine Ratio 12.0 (10.0-20.0); Glucose 83 mg/dL (74-106)
[2025-04-28 22:15] LABS: Calcium 10.5 mg/dL (8.7-10.4); Carbon Dioxide 18 mmol/L (20-31); Sodium 136 mmol/L (136-145)
[2025-04-28 22:16] LABS: Blood Urea Nitrogen 106 mg/dL (9-23); Potassium 5.8 mmol/L (3.5-5.1)
[2025-04-28 23:24] LABS: Urine Amorphous Crystal FEW /hpf (None Seen); Urine Protein, UAD 3+ (Negative)
[2025-04-29] MEDS ORDERED: ONDANSETRON HCL 4 MG/2 ML VIAL IV PRN (01:00)
[2025-04-29] MEDS ORDERED: DEXTROSE (50%) 50ML SYRG IV PRN (01:00)
--- NOTE | 2025-04-29 01:37 | DVH ---
INDICATION: renal failure TECHNIQUE: Multiple real-time sonographic images of the kidneys and bladder were obtained. COMPARISON: US KIDNEY on DOS: 08/17/24 FINDINGS: RIGHT kidney measures 9.2 cm in length with normal parenchymal echotexture and cortical thickness. No hydronephrosis. LEFT kidney measures 9.1 cm in length with normal parenchymal echotexture and cortical thickness. No hydronephrosis. The urinary bladder is contracted. No large intraluminal masses are seen in the bladder. Post void residual not evaluated. IMPRESSION: 1. Unremarkable examination.
--- NOTE | 2025-04-29 03:24 | ECG ---
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
--- NOTE | 2025-04-29 03:35 | DVHHP2 ---
History of Present Illness Reason for Visit: Generalized weakness History of Present Illness 59-year-old male presents for evaluation of generalized weakness. Patient initially presented to have his carbidopa/levodopa refilled. He reports not taking a for the past four days. He has been having generalized weakness for the same time. His blood work revealed acute renal failure. He does report a history of chronic kidney disease. Denies cardiac or respiratory symptoms. Past Medical History Hypertension, chronic kidney disease, diabetes mellitus, Parkinson's disease Past Surgical History Denies Family History Noncontributory Smoke: No ALCOHOL: none Drugs: None Lives: with Family Review of Systems Review of Systems Review of systems are currently negative otherwise addressed in HPI. Allergies: Coded Allergies: NO KNOWN ALLERGIES (Unverified , 09/09/19) Medications Current Medications Medications Dose Ordered Sig/Nicol Route Start Time Stop Time Status Last Admin Dose Admin Carbidopa/Levodopa 1 tab TID PO 04/29/25 06:00 Patient Own Medication 5 mg DAILY PO 04/29/25 10:00 UNV Gabapentin 100 mg DAILY PO 04/29/25 10:00 Amlodipine Besylate 5 mg DAILY PO 04/29/25 10:00 Hydralazine HCl 10 mg Q6HP PRN IV 04/29/25 01:00 Diagnostic Test (Pha) 1 strip Q6HR 04/29/25 06:00 Insulin Human Regular Q6HR SC 04/29/25 06:00 Dextrose 50 ml UD PRN IV 04/29/25 01:00 Ondansetron HCl 4 mg Q4HP PRN IV 04/29/25 01:00 Acetaminophen 650 mg Q6HP PRN PO 04/29/25 01:00 Exam Vital Signs Vital Signs Date Time Temp Pulse Resp B/P (MAP) Pulse Ox O2 Delivery O2 Flow Rate FiO2 04/29/25 02:45 98.5 89 14 164/92 (116) 97 98.5 Exam Gen: 59-year-old male in no apparent distress. Skin: Warm, dry, normal color and texture, no rash. HEENT: Normocephalic atraumatic, mucous membranes moist and pink. Neck: Cervical and supraclavicular nodes normal without enlargement, trachea is midline, thyroid gland is normal without masses. Pulmonary: Clear to auscultation and percussion bilaterally. Cardiac: Regular rate and rhythm. No murmur Abdomen: Soft, nontender, nondistended, bowel sounds present all 4 quadrants, no guarding, no rigidity, no organomegaly. Extremities: No cyanosis, clubbing, no edema Neuro: Cranial nerves II through XII grossly intact, normal affect and speech, no focal motor deficits. Labs/Xrays ORDERING PHYSICIAN: JL COKER PROCEDURE(s): KIDUS - KIDNEY REASON: renal failure ORDER NUMBER(s): [id number], ACCESSION NUMBER(s): [id number] INDICATION: renal failure TECHNIQUE: Multiple real-time sonographic images of the kidneys and bladder were obtained. COMPARISON: US KIDNEY on DOS: 08/17/24 FINDINGS: RIGHT kidney measures 9.2 cm in length with normal parenchymal echotexture and cortical thickness. No hydronephrosis. LEFT kidney measures 9.1 cm in length with normal parenchymal echotexture and cortical thickness. No hydronephrosis. The urinary bladder is contracted. No large intraluminal masses are seen in the bladder. Post void residual not evaluated. IMPRESSION: 1. Unremarkable examination. ATED BY: DOUG GE MD DICTATED DATE/TIME: 04/29/25 0134 ORDERING PHYSICIAN: AFSHAN SALINAS MD PROCEDURE(s): CXRP - CHEST PORTABLE REASON: weakness ORDER NUMBER(s): [id number], ACCESSION NUMBER(s): [id number] CHEST RADIOGRAPH Indication: weakness Technique: Single frontal view of the chest was obtained Comparison: XY CHEST PORTABLE on DOS: 08/16/24, XY CHEST PORTABLE on DOS: 08/05/24 FINDINGS: Lines and Tubes: None Lungs: No focal consolidation. Pleura: No effusion. No pneumothorax. Cardiomediastinal contours: Unremarkable Bones: No acute osseous abnormality. IMPRESSION: 1. No acute cardiopulmonary disease. Labs Test 04/29/25 00:40 04/28/25 21:46 04/28/25 21:15 Range/Units Creatine Kinase 167 46-171 U/L Troponin I High Sensitivity 18 </=54 ng/L White Blood Count 6.3 4.4-10.8 10^3/uL Red Blood Count 3.27 L 4.5-5.90 10^6/uL Hemoglobin 10.3 L 13.5-17.5 g/dL Hematocrit 29.6 L 41.0-53.0 % Mean Corpuscular Volume 90.6 80.0-100.0 fL Mean Corpuscular Hemoglobin 31.5 28.0-32.0 pg Mean Corpuscular Hemoglobin Concent 34.7 32.0-36.0 g/dL Red Cell Distribution Width 14.7 H 11.8-14.3 % Platelet Count 253 140-450 10^3/uL Mean Platelet Volume 7.0 6.9-10.8 fL Neutrophils (%) (Auto) 64.5 37.0-80.0 % Lymphocytes (%) (Auto) 25.0 10.0-50.0 % Monocytes (%) (Auto) 8.3 0.0-12.0 % Eosinophils (%) (Auto) 1.3 0.0-7.0 % Basophils (%) (Auto) 0.9 0.0-2.0 % Neutrophils # (Auto) 4.0 1.6-8.6 10 ^3/uL Lymphocytes # (Auto) 1.6 0.4-5.4 10 ^3/uL Monocytes # (Auto) 0.5 0-1.3 10 ^3/uL Eosinophils # (Auto) 0.1 0-0.8 10 ^3/uL Basophils # (Auto) 0.1 0-0.2 10 ^3/uL Nucleated Red Blood Cells 0.0 % Sodium Level 136 136-145 mmol/L Potassium Level 5.8 *H 3.5-5.1 mmol/L Chloride Level 102 98-107 mmol/L Carbon Dioxide Level 18 L 20-31 mmol/L Anion Gap 16 H 5-15 Blood Urea Nitrogen 106 *H 9-23 mg/dL Creatinine 8.86 H 0.700-1.30 mg/dL Glomerular Filtration Rate Calc 6 >90 mL/min BUN/Creatinine Ratio 12.0 10.0-20.0 Serum Glucose 83 74-106 mg/dL Calcium Level 10.5 H 8.7-10.4 mg/dL Urine Color Colorless Yellow Urine Clarity Clear Clear Urine pH 6.0 5.0-9.0 Urine Specific [place] 1.012 1.001-1.035 Urine Protein 3+ H Negative Urine Ketones Trace Negative Urine Blood 2+ H Negative /uL Urine Nitrite Negative Negative Urine Bilirubin Negative Negative Urine Urobilinogen Normal Negative mg/dL Urine Leukocyte Esterase Negative Negative /uL Urine RBC 2 0 - 3 /hpf Urine Microscopic WBC < 1 0-3 /HPF Urine Squamous Epithelial Cells Few <5 /hpf Urine Amorphous Crystals Few None Seen /hpf Urine Bacteria None seen None Seen /hpf Urine Glucose Normal Normal mg/dL POC Glucose 74 70-106 mg/dl SEPSIS Sepsis Screen Date sepsis recognized/suspect: Apr 28, 2025 Time Sepsis recognized/suspect: 2114 Recent Procedure: No On Antibiotic Therapy: No Respiratory Rate >20: No Heart Rate >90: Yes Temp<36 C (96.8 F) or >38.3 C: No SBP <90 or MAP <65 mmHG: No New Acute Mental Status Change: No Is the patient on CPAP, BIPAP,: No Physician Orders Chest Portable (04/28/25 21:11) Electrocardigram (04/28/25 22:19) Electrocardigram (04/29/25 00:19) Carbidopa W Levodopa 25/250mg (Sinemet 2 (04/29/25 06:00) (Nf) Januvia (04/29/25 10:00) Gabapentin Capsule (Neurontin Capsule) (04/29/25 10:00) Amlodipine Tablet (Norvasc Tablet) (04/29/25 10:00) *[facility] (04/29/25 00:51) Kidney (04/29/25 00:51) Hydralazine Injection (Apresoline Inject (04/29/25 01:00) Basic Metabolic Panel (04/29/25 04:00) Glucose Blood (Accu-Chek Comfort Curve T (04/29/25 06:00) Insulin R (Human) (Insulin R) (04/29/25 06:00) Dextrose 50% Syringe (04/29/25 01:00) Admit (04/29/25 00:51) Renal Standard(2gna,3gk,Lopho) (04/29/25 Breakfast) Ondansetron Hcl (Zofran) (04/29/25 01:00) Condition: Stable (04/29/25 00:51) Acetaminophen Tablet (Tylenol Tablet) (04/29/25 01:00) Bedrest With Bathroom Privileg (04/29/25 00:51) Communication Order (04/29/25 00:51) Vital Signs Date Time Temp Pulse Resp B/P (MAP) Pulse Ox O2 Delivery O2 Flow Rate FiO2 04/29/25 02:45 98.5 89 14 164/92 (116) 97 98.5 04/29/25 00:08 98.9 99 14 183/95 (124) 98 98.9 04/28/25 22:14 99 04/28/25 21:32 100 04/28/25 21:16 100 04/28/25 21:15 99.0 102 18 195/96 (129) 99 99.0 Laboratory Tests Test 04/28/25 21:46 White Blood Count 6.3 10^3/uL (4.4-10.8) Assessment/Plan Assessment/Plan Assessment Acute renal failure Accelerated hypertension Diabetes mellitus Parkinson's disease Plan Admit the patient to Med [facility] [place] to the hospitalist Nephrology consultation Resume home medications Continue treatment per orders. Plan discussed with: Patient My Orders Orders - JL COKER Procedure Category Date Status Time Carbidopa W Levodopa PHA 04/29/25 In Process 25/250mg (Sinemet 2 06:00 (Nf) Januvia PHA 04/29/25 Pending 10:00 Gabapentin Capsule PHA 04/29/25 In Process (Neurontin Capsule) 10:00 Amlodipine Tablet PHA 04/29/25 In Process (Norvasc Tablet) 10:00 *[facility] CONS 04/29/25 Transmitted -[place] 00:51 Kidney US 04/29/25 Resulted 00:51 Hydralazine Injection PHA 04/29/25 In Process (Apresoline Inject 01:00 Basic Metabolic Panel LAB 04/29/25 Logged 04:00 Glucose Blood PHA 04/29/25 In Process (Accu-Chek Comfort 06:00 Insulin R (Human) PHA 04/29/25 In Process (Insulin R) 06:00 Dextrose 50% Syringe PHA 04/29/25 In Process 01:00 Admit ADMIT 04/29/25 Transmitted 00:51 Renal DIET 04/29/25 Transmitted Standard(2gna,3gk,Lopho) Breakfast Ondansetron Hcl PHA 04/29/25 In Process (Zofran) 01:00 Condition: Stable BANDAR 04/29/25 In Process 00:51 Acetaminophen Tablet PHA 04/29/25 In Process (Tylenol Tablet) 01:00 Bedrest With Bathroom BANDAR 04/29/25 In Process Privileg 00:51 Communication Order ORDERS 04/29/25 Transmitted 00:51 Date of Service: Apr 29, 2025 Billing Provider: JL COKER Common Visit Codes: [id number] INP/OBS CARE (HIGH) JL COKER Apr 29, 2025 03:35
[2025-04-29] MEDS: CARBIDOPA W LEVODOPA 25/250mg TABLET PO ONE (04:19)
[2025-04-29 04:25] LABS: Calcium 10.3 mg/dL (8.7-10.4); Chloride 101 mmol/L (98-107); Sodium 137 mmol/L (136-145)
[2025-04-29 04:26] LABS: Anion Gap 17 (5-15)
[2025-04-29 04:31] LABS: BUN/Creatinine Ratio 11.7 (10.0-20.0); Glucose 91 mg/dL (74-106)
[2025-04-29 04:36] LABS: Carbon Dioxide 19 mmol/L (20-31); Potassium 5.1 mmol/L (3.5-5.1)
[2025-04-29 04:46] LABS: Blood Urea Nitrogen 105 mg/dL (9-23)
[2025-04-29] MEDS: CALCIUM GLUC 1,000mg/50ml-NS 50 ML IV SCH ×2 (05:15→05:18)
[2025-04-29] MEDS: SODIUM BICARB 8.4% 50Meq/50ml SYR Vial IV ONE (05:18)
[2025-04-29] MEDS: DEXTROSE (50%) 50ML SYRG IV ONE (05:18)
[2025-04-29] MEDS: InsuLIN REG 1unit/0.01ml Soln (100units/ml) IV ONE (05:35)
[2025-04-29] MEDS ORDERED: CARBIDOPA W LEVODOPA 25/250mg TABLET PO SCH (06:00)
[2025-04-29] MEDS: ACCU-CHEK COMFORT CURVE STRIP VI SCH (06:15)
[2025-04-29] MEDS: SODIUM CHLORIDE 0.9% 1,000 ML IV ONE (06:15)
[2025-04-29] MEDS: InsuLIN REG 1unit/0.01ml Soln (100units/ml) SC SCH (06:16)
--- NOTE | 2025-04-29 06:47 | ECG ---
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
[2025-04-29] MEDS: SODIUM BICARB 50mEq/50ml Vial 150 ML in D5W 5% 1,000 ML IV ONE (09:42)
[2025-04-29] MEDS: SITAGLIPTIN PO SCH (10:00)
[2025-04-29] MEDS: GABAPENTIN 100 MG CAP PO SCH (10:12)
[2025-04-29] MEDS: CARBIDOPA W LEVODOPA 25/250mg TABLET PO SCH (13:35)
--- NOTE | 2025-04-29 13:53 | DVHINCON2 ---
Date of service: Apr 29, 2025 Reason for Consultation MUMTAZ History of Present Illness 59 year old male PMH Parkinsons disease, htn, dm2, ckd 4 known to me from renal clinic but was lost to followup in 2023 because he moved out for [place] now presents due to weakness . At presentation in the ER is noted to have hy perkalemia metabolic acidosis and a BUN greater than 100. Patient also has parkinsonian like symptoms with delayed and sluggish speech Allergies: Coded Allergies: NO KNOWN ALLERGIES (Unverified , 09/09/19) Home Meds Active Scripts Levodopa W/Carbidopa (SINEMET 25/100MG) 1 Tab Tb, 1 TAB PO QID for 30 Days, #120 TAB Prov:LEANNA KNOTT RESIDENT 08/22/24 Reported Medications Amlodipine Besylate (Amlodipine Besylate) 5 Mg Tab, 1 TAB PO DAILY 04/29/25 Sitagliptin Phosphate (Januvia) 50 Mg Tab, 25 MG PO DAILY for 90 Days, #90 08/19/24 Amlodipine Besylate (Amlodipine Besylate) 10 Mg Tab, 1 TAB PO DAILY for 90 Days, #90 08/19/24 Ergocalciferol (Vitamin D) 50,000 Unit Cap, 1 CAP PO QWEEKLY for 84 Days, #12 08/19/24 Selegiline HCl (Selegiline Hydrochloride) 5 Mg Tab, 1 TAB PO DAILY for 90 Days, #90 08/19/24 Semaglutide (Ozempic) 2 Mg/3 Ml Inj, 0.5 MG SC QWEEKLY for 28 Days, #3 08/19/24 Dapagliflozin Propanediol (Farxiga) 10 Mg Tab, 5 MG PO DAILY for 90 Days, #90 08/19/24 Lidocaine (Lidocaine) 5 % Pad, 1 PATCH TOP DAILY for 30 Days, #30 08/19/24 Gabapentin (Gabapentin) 100 Mg Cap, 1 CAP PO DAILY for 90 Days, #90 08/19/24 Atenolol (TENORMIN TABLET) 50 Mg Tb, 1 TAB PO DAILY, #30 TAB 5 Refills 08/17/24 Current Medications Current Medications Medications (Trade) Dose Ordered Sig/Nicol Route PRN Reason Start Time Stop Time Status Last Admin Sodium Bicarbonate 150 ml/Dextrose 1,150 ml @ 75 mls/hr [id number] IV 04/29/25 18:45 04/30/25 12:57 Sevelamer HCl (Renagel) 1,600 mg TIDWM PO 04/30/25 08:00 04/30/25 12:31 Zirconium Oxide (Lokelma) 10 gm BID PO 04/29/25 22:00 04/30/25 14:45 DC 04/30/25 09:17 H&P Exam Vital Signs/I&O Vital Sign Date Time Temp Pulse Resp B/P (MAP) Pulse Ox O2 Delivery O2 Flow Rate FiO2 04/30/25 13:00 97.9 77 20 148/87 (107) 98 97.9 04/30/25 08:00 Room Air* 0 21 Intake and Output 04/29/25 04/30/25 19:00 07:00 Output Total 200 ml 550 ml Balance -200 ml -550 ml Output Urine Total 200 ml 550 ml # Bowel Movements 1 Physical Exam malnourished appearing male y[place] only speaking soft spoken with slow speech Flat affect resting tremor with decreased upper and lower muscle strength no edema Labs/Diagnostic Data Labs/Diagnostic Data Laboratory Tests Test 04/30/25 12:22 04/30/25 06:10 04/30/25 05:02 04/29/25 23:50 Range/Units POC Glucose 176 H 90 88 70-106 mg/dl Sodium Level 139 136-145 mmol/L Potassium Level 4.3 3.5-5.1 mmol/L Chloride Level 98 98-107 mmol/L Carbon Dioxide Level 30 # 20-31 mmol/L Anion Gap 11 5-15 Blood Urea Nitrogen 101 *H 9-23 mg/dL Creatinine 8.32 H 0.700-1.30 mg/dL Glomerular Filtration Rate Calc 7 >90 mL/min BUN/Creatinine Ratio 12.1 10.0-20.0 Serum Glucose 92 74-106 mg/dL Calcium Level 9.1 8.7-10.4 mg/dL Hepatitis A IgM Antibody Negative Hepatitis B Surface Antigen Negative Negative Hepatitis B Core IgM Antibody Negative Negative Hepatitis C Antibody Negative Negative Test 04/29/25 17:10 04/29/25 13:21 04/29/25 07:59 04/29/25 06:06 Range/Units POC Glucose 270 H 133 H 151 H 70-106 mg/dl Sodium Level 138 136-145 mmol/L Potassium Level 5.3 H 3.5-5.1 mmol/L Chloride Level 103 98-107 mmol/L Carbon Dioxide Level 15 L 20-31 mmol/L Anion Gap 20 H 5-15 Blood Urea Nitrogen 106 *H 9-23 mg/dL Creatinine 9.03 H 0.700-1.30 mg/dL Glomerular Filtration Rate Calc 6 >90 mL/min BUN/Creatinine Ratio 11.7 10.0-20.0 Serum Glucose 89 74-106 mg/dL Calcium Level 10.3 8.7-10.4 mg/dL Phosphorus Level 6.3 H 2.4-5.1 mg/dL Test 04/29/25 05:30 04/29/25 03:55 04/29/25 02:50 04/29/25 00:40 Range/Units POC Glucose 256 H 94 70-106 mg/dl Sodium Level 137 136-145 mmol/L Potassium Level 5.1 3.5-5.1 mmol/L Chloride Level 101 98-107 mmol/L Carbon Dioxide Level 19 L 20-31 mmol/L Anion Gap 17 H 5-15 Blood Urea Nitrogen 105 *H 9-23 mg/dL Creatinine 9.00 H 0.700-1.30 mg/dL Glomerular Filtration Rate Calc 6 >90 mL/min BUN/Creatinine Ratio 11.7 10.0-20.0 Serum Glucose 91 74-106 mg/dL Calcium Level 10.3 8.7-10.4 mg/dL Creatine Kinase 167 46-171 U/L Troponin I High Sensitivity 18 </=54 ng/L Parathyroid Hormone (Intact) 216.7 H 18.4-80.1 pg/mL Test 04/28/25 22:36 04/28/25 21:46 04/28/25 21:15 Range/Units Troponin I High Sensitivity 15 14 </=54 ng/L White Blood Count 6.3 4.4-10.8 10^3/uL Red Blood Count 3.27 L 4.5-5.90 10^6/uL Hemoglobin 10.3 L 13.5-17.5 g/dL Hematocrit 29.6 L 41.0-53.0 % Mean Corpuscular Volume 90.6 80.0-100.0 fL Mean Corpuscular Hemoglobin 31.5 28.0-32.0 pg Mean Corpuscular Hemoglobin Concent 34.7 32.0-36.0 g/dL Red Cell Distribution Width 14.7 H 11.8-14.3 % Platelet Count 253 140-450 10^3/uL Mean Platelet Volume 7.0 6.9-10.8 fL Neutrophils (%) (Auto) 64.5 37.0-80.0 % Lymphocytes (%) (Auto) 25.0 10.0-50.0 % Monocytes (%) (Auto) 8.3 0.0-12.0 % Eosinophils (%) (Auto) 1.3 0.0-7.0 % Basophils (%) (Auto) 0.9 0.0-2.0 % Neutrophils # (Auto) 4.0 1.6-8.6 10 ^3/uL Lymphocytes # (Auto) 1.6 0.4-5.4 10 ^3/uL Monocytes # (Auto) 0.5 0-1.3 10 ^3/uL Eosinophils # (Auto) 0.1 0-0.8 10 ^3/uL Basophils # (Auto) 0.1 0-0.2 10 ^3/uL Nucleated Red Blood Cells 0.0 % Sodium Level 136 136-145 mmol/L Potassium Level 5.8 *H 3.5-5.1 mmol/L Chloride Level 102 98-107 mmol/L Carbon Dioxide Level 18 L 20-31 mmol/L Anion Gap 16 H 5-15 Blood Urea Nitrogen 106 *H 9-23 mg/dL Creatinine 8.86 H 0.700-1.30 mg/dL Glomerular Filtration Rate Calc 6 >90 mL/min BUN/Creatinine Ratio 12.0 10.0-20.0 Serum Glucose 83 74-106 mg/dL Calcium Level 10.5 H 8.7-10.4 mg/dL Urine Color Colorless Yellow Urine Clarity Clear Clear Urine pH 6.0 5.0-9.0 Urine Specific [place] 1.012 1.001-1.035 Urine Protein 3+ H Negative Urine Ketones Trace Negative Urine Blood 2+ H Negative /uL Urine Nitrite Negative Negative Urine Bilirubin Negative Negative Urine Urobilinogen Normal Negative mg/dL Urine Leukocyte Esterase Negative Negative /uL Urine RBC 2 0 - 3 /hpf Urine Microscopic WBC < 1 0-3 /HPF Urine Squamous Epithelial Cells Few <5 /hpf Urine Amorphous Crystals Few None Seen /hpf Urine Bacteria None seen None Seen /hpf Urine Glucose Normal Normal mg/dL POC Glucose 74 70-106 mg/dl Assessment Acute kidney injury hemodynamically mediated ckd 4 hyperkalemia metabolic acidosis Parkinsons disease anemia due to ckd start sodium bicarb drip monitor uop accurately renal restricted diet lokelma phos binder if does not have output rec bladder scan with PVD renal diet If does not have clinical improvement in condition will recommend dialysis care time 60mins Plan discussed with: Patient OSKAR ALVAREZ MD Apr 29, 2025 13:53
[2025-04-29 14:41] LABS: Chloride 103 mmol/L (98-107); Sodium 138 mmol/L (136-145)
[2025-04-29 14:42] LABS: Anion Gap 20 (5-15); Calcium 10.3 mg/dL (8.7-10.4); Carbon Dioxide 15 mmol/L (20-31); Potassium 5.3 mmol/L (3.5-5.1)
[2025-04-29 14:47] LABS: BUN/Creatinine Ratio 11.7 (10.0-20.0); Glucose 89 mg/dL (74-106)
[2025-04-29 14:51] LABS: Blood Urea Nitrogen 106 mg/dL (9-23)
[2025-04-29 15:51] VITALS: PULSE 98; RESP 18; O2SAT 98
[2025-04-29 17:00] VITALS: BP 156/86; PULSE 93; RESP 17; TEMP 97.5; O2SAT 98
[2025-04-29 17:13] VITALS: BP 16/86; PULSE 93; RESP 17; TEMP 97.5; O2SAT 98
[2025-04-29] MEDS ORDERED: AMLO1TAB22 PO (17:33)
[2025-04-29] MEDS: SODIUM BICARB 50mEq/50ml Vial 150 ML in D5W 5% 1,000 ML IV SCH (20:34)
[2025-04-29] MEDS: SODIUM ZIRCONIUM CYCL 10 GM PAK PO SCH (20:38)
[2025-04-29 21:00] VITALS: BP 123/71; PULSE 87; RESP 18; TEMP 98; O2SAT 97
[2025-04-30 05:00] VITALS: BP 116/83; PULSE 76; RESP 21; TEMP 97.9; O2SAT 95
[2025-04-30 07:13] LABS: Anion Gap 11 (5-15); Calcium 9.1 mg/dL (8.7-10.4); Carbon Dioxide 30 mmol/L (20-31); Potassium 4.3 mmol/L (3.5-5.1); Sodium 139 mmol/L (136-145)
[2025-04-30 07:19] LABS: BUN/Creatinine Ratio 12.1 (10.0-20.0); Glucose 92 mg/dL (74-106)
[2025-04-30 08:09] LABS: Blood Urea Nitrogen 101 mg/dL (9-23); Chloride 98 mmol/L (98-107)
[2025-04-30 09:00] VITALS: BP_SYST 107; BP_SYST 169; BP_DIAS 66; BP_DIAS 91; PULSE 79; PULSE 81; RESP 22; TEMP 97.9; O2SAT 79; O2SAT 91
[2025-04-30] MEDS: SEVELAMER 800 MG TAB PO SCH (09:17)
[2025-04-30] MEDS: hydrALAZINE HCL 20 MG/ML VL IV PRN (09:18)
[2025-04-30 11:08] LABS: Hepatitis B Surface Antigen Negative (Negative); Hepatitis C Antibody Negative (Negative)
[2025-04-30 13:00] VITALS: BP 148/87; PULSE 77; RESP 20; TEMP 97.9; O2SAT 98
--- NOTE | 2025-04-30 14:11 | DVHPN2 ---
Reviewed: Care Plan, H&P, Labs, Medications, Previous Orders, Radiology Changes from previous H/P or p: No Changes General: Per HPI Objective Vitals Vital Signs Date Time Temp Pulse Resp B/P (MAP) Pulse Ox O2 Delivery O2 Flow Rate FiO2 04/30/25 13:00 97.9 77 20 148/87 (107) 98 97.9 04/30/25 08:00 Room Air* 0 21 Intake/Output Intake and Output 04/30/25 07:00 Output Total 750 ml Balance -750 ml Output Urine Total 750 ml # Bowel Movements 1 General Appearance: Alert, Oriented X3 HEENT: Atraumatic Cardiovascular: Regular rate, Normal S1, Normal S2 Medications Current Medications Medications Dose Ordered Sig/Nicol Route Start Time Stop Time Status Last Admin Dose Admin Patient Own Medication 5 mg DAILY PO 04/29/25 10:00 Gabapentin 100 mg DAILY PO 04/29/25 10:00 04/30/25 09:17 100 MG Amlodipine Besylate 5 mg DAILY PO 04/29/25 10:00 04/30/25 09:18 5 MG Hydralazine HCl 10 mg Q6HP PRN IV 04/29/25 01:00 04/30/25 09:18 10 MG Diagnostic Test (Pha) 1 strip Q6HR 04/29/25 06:00 04/30/25 12:32 1 STRIP Insulin Human Regular Q6HR SC 04/29/25 06:00 04/30/25 12:57 3 UNITS Dextrose 50 ml UD PRN IV 04/29/25 01:00 Ondansetron HCl 4 mg Q4HP PRN IV 04/29/25 01:00 Acetaminophen 650 mg Q6HP PRN PO 04/29/25 01:00 Carbidopa/Levodopa 1 tab Q8H PO 04/29/25 12:00 04/30/25 12:32 1 TAB Sodium Bicarbonate 150 ml/Dextrose 1,150 ml @ 75 mls/hr [id number] IV 04/29/25 18:45 04/30/25 12:57 75 MLS/HR Sevelamer HCl 1,600 mg TIDWM PO 04/30/25 08:00 04/30/25 12:31 1,600 MG Zirconium Oxide 10 gm BID PO 04/29/25 22:00 05/02/25 21:59 04/30/25 09:17 10 GM Laboratory Results Laboratory Tests 04/28/25 21:46 04/30/25 06:10 Chemistry Test 04/30/25 06:10 Calcium Level 9.1 mg/dL (8.7-10.4) Urinalysis Test 04/28/25 21:15 Urine Color Colorless (Yellow) Urine Clarity Clear (Clear) Urine pH 6.0 (5.0-9.0) Urine Specific [place] 1.012 (1.001-1.035) Urine Protein 3+ (Negative) H Urine Ketones Trace (Negative) Urine Blood 2+ /uL (Negative) H Urine Nitrite Negative (Negative) Urine Bilirubin Negative (Negative) Urine Urobilinogen Normal mg/dL (Negative) Urine Leukocyte Esterase Negative /uL (Negative) Urine RBC 2 /hpf (0 - 3) Urine Microscopic WBC < 1 /HPF (0-3) Urine Squamous Epithelial Cells Few /hpf (<5) Urine Amorphous Crystals Few /hpf (None Seen) Urine Bacteria None seen /hpf (None Seen) Urine Glucose Normal mg/dL (Normal) Labs and/or images reviewed: Labs reviewed by me, Image(s) reviewed by me Assessment/Plan Assessment/Plan Acute renal failure on chronic renal failure ( Accelerated hypertension Diabetes mellitus Parkinson's disease nausea, intractable, anemia of ckd 04/30/2025 nephrology is evaluating for possible dialysis close monitoring for improvement discussed with pt and pt's family Plan discussed with: Patient, Daughter Date of Service: Apr 30, 2025 Billing Provider: NICHOLAS DOUGLAS DO Common Visit Codes: [id number] INP/OBS CARE(HIGH) NICHOLAS DOUGLAS DO Apr 30, 2025 14:11
--- NOTE | 2025-04-30 15:06 | DVHPN2 ---
Progress Note Date Seen: Apr 30, 2025 Medical Necessity Reason Pt with a Central, PICC or Fol: No Subjective Patient reports: No new complaints Objective vital signs Vital Sign Date Time Temp Pulse Resp B/P (MAP) Pulse Ox O2 Delivery O2 Flow Rate FiO2 04/30/25 13:00 97.9 77 20 148/87 (107) 98 97.9 04/30/25 08:00 Room Air* 0 21 Total Intake and Output 04/29/25 04/29/25 04/30/25 15:00 23:00 07:00 Output Total 200 ml 550 ml Balance -200 ml -550 ml medications Current Medications Medications Dose Ordered Sig/Nicol Route Start Time Stop Time Status Last Admin Dose Admin Patient Own Medication 5 mg DAILY PO 04/29/25 10:00 Gabapentin 100 mg DAILY PO 04/29/25 10:00 04/30/25 09:17 Amlodipine Besylate 5 mg DAILY PO 04/29/25 10:00 04/30/25 09:18 Hydralazine HCl 10 mg Q6HP PRN IV 04/29/25 01:00 04/30/25 09:18 Diagnostic Test (Pha) 1 strip Q6HR 04/29/25 06:00 04/30/25 12:32 Insulin Human Regular Q6HR SC 04/29/25 06:00 04/30/25 12:57 Dextrose 50 ml UD PRN IV 04/29/25 01:00 Ondansetron HCl 4 mg Q4HP PRN IV 04/29/25 01:00 Acetaminophen 650 mg Q6HP PRN PO 04/29/25 01:00 Carbidopa/Levodopa 1 tab Q8H PO 04/29/25 12:00 04/30/25 12:32 Sodium Bicarbonate 150 ml/Dextrose 1,150 ml @ 75 mls/hr [id number] IV 04/29/25 18:45 04/30/25 12:57 Sevelamer HCl 1,600 mg TIDWM PO 04/30/25 08:00 04/30/25 12:31 Examination: GENERAL:Abnormal, CVS:Normal, NEURO:Abnormal laboratory and microbiology Laboratory Tests 04/30/25 06:10 04/28/25 21:46 Test 04/30/25 06:10 Range/Units Serum Glucose 92 74-106 mg/dL Problem List/Assessment/Plan Problem List/Assessment/Plan Acute kidney injury hemodynamically mediated ckd 4 hyperkalemia metabolic acidosis Parkinsons disease anemia due to ckd Severe azotemia Continue sodium bicarb drip monitor uop accurately renal restricted diet phos binder if does not have output rec bladder scan with PVD renal diet I discussed with patient with [place] translation and called patient's daughter Doreen to discussed his medical condition. Given patient's previous history of chronic kidney disease stage 4 and presentation now consistent with stage 5 kidney disease in all likelihood patient has progressed to End-stage renal disease and I recommend starting dialysis therapy. I explained this process would require tunneled hemodialysis catheter. Family we will discuss this and we will place interventional radiology tunneled catheter placement if in agreement Plan discussed with: Patient, Daughter My Orders My Orders Orders - OSKAR ALVAREZ MD Procedure Category Date Status Time D5w 5% (Dextrose 5%) PHA 04/29/25 In Process W/Sodium Bicarb 50m 18:45 Sevelamer (Renagel) PHA 04/30/25 In Process 08:00 Total Time (mins): 50 OSKAR ALVAREZ MD Apr 30, 2025 15:06
[2025-04-30 17:00] VITALS: BP 152/86; PULSE 76; RESP 20; TEMP 97.9; O2SAT 99
[2025-04-30 21:00] VITALS: BP 144/89; PULSE 84; RESP 17; TEMP 97.7; O2SAT 100
[2025-04-30] MEDS: ACETAMINOPHEN 325 MG TAB PO PRN (23:33)
[2025-05-01 01:00] VITALS: BP 150/81; PULSE 87; RESP 18; TEMP 97.7; O2SAT 98
[2025-05-01 07:02] LABS: Hematocrit 24.1 % (41.0-53.0); Hemoglobin 8.6 g/dL (13.5-17.5); Mean Corpuscular Hemoglobin 31.4 pg (28.0-32.0); Mean Corpuscular Volume 88.4 fL (80.0-100.0); Nucleated Red Blood Cells % 0.0 %
[2025-05-01 07:17] LABS: Anion Gap 12 (5-15); Calcium 9.1 mg/dL (8.7-10.4); Potassium 3.9 mmol/L (3.5-5.1); Sodium 137 mmol/L (136-145)
[2025-05-01 07:18] LABS: Carbon Dioxide 34 mmol/L (20-31); Chloride 91 mmol/L (98-107)
[2025-05-01 07:23] LABS: BUN/Creatinine Ratio 11.4 (10.0-20.0)
[2025-05-01 07:24] LABS: Glucose 118 mg/dL (74-106)
[2025-05-01 07:25] LABS: Blood Urea Nitrogen 89 mg/dL (9-23)
[2025-05-01 09:00] VITALS: BP 160/89; PULSE 86; RESP 18; TEMP 97.8; O2SAT 97
--- NOTE | 2025-05-01 12:28 | DVHPN2 ---
Progress Note Date Seen: May 01, 2025 Medical Necessity Reason Pt with a Central, PICC or Fol: No Subjective Patient reports: Feels better Objective vital signs Vital Sign Date Time Temp Pulse Resp B/P (MAP) Pulse Ox O2 Delivery O2 Flow Rate FiO2 05/01/25 09:32 160/89 05/01/25 09:00 97.8 86 18 97 97.8 05/01/25 08:00 Room Air* 0 21 Total Intake and Output 04/30/25 04/30/25 05/01/25 15:00 23:00 07:00 Intake Total 1100 ml 2175 ml 975 ml Output Total 1200 ml 300 ml Balance 1100 ml 975 ml 675 ml medications Current Medications Medications Dose Ordered Sig/Nicol Route Start Time Stop Time Status Last Admin Dose Admin Patient Own Medication 5 mg DAILY PO 04/29/25 10:00 Gabapentin 100 mg DAILY PO 04/29/25 10:00 05/01/25 09:31 100 MG Amlodipine Besylate 5 mg DAILY PO 04/29/25 10:00 05/01/25 09:32 5 MG Hydralazine HCl 10 mg Q6HP PRN IV 04/29/25 01:00 05/01/25 05:01 10 MG Diagnostic Test (Pha) 1 strip Q6HR 04/29/25 06:00 05/01/25 12:07 1 STRIP Insulin Human Regular Q6HR SC 04/29/25 06:00 05/01/25 12:18 3 UNITS Dextrose 50 ml UD PRN IV 04/29/25 01:00 Ondansetron HCl 4 mg Q4HP PRN IV 04/29/25 01:00 Acetaminophen 650 mg Q6HP PRN PO 04/29/25 01:00 04/30/25 23:33 650 MG Carbidopa/Levodopa 1 tab Q8H PO 04/29/25 12:00 05/01/25 12:07 1 TAB Sodium Bicarbonate 150 ml/Dextrose 1,150 ml @ 75 mls/hr [id number] IV 04/29/25 18:45 05/01/25 04:50 75 MLS/HR Sevelamer HCl 1,600 mg TIDWM PO 04/30/25 08:00 05/01/25 12:07 1,600 MG Examination: GENERAL:Normal, CVS:Normal, ABDOMEN:Normal, NEURO:Abnormal laboratory and microbiology Laboratory Tests 05/01/25 06:03 Test 05/01/25 06:03 Range/Units Serum Glucose 118 H 74-106 mg/dL Problem List/Assessment/Plan Problem List/Assessment/Plan Acute kidney injury hemodynamically mediated ckd 4 hyperkalemia metabolic acidosis Parkinsons disease anemia due to ckd Severe azotemia Discontinue sodium bicarb drip monitor uop accurately renal restricted diet phos binder renal diet I discussed with patient with Indonesian translation and called patient's daughter Doreen to discussed his medical condition. Given patient's previous history of chronic kidney disease stage 4 and presentation now consistent with stage 5 kidney disease in all likelihood patient has progressed to End-stage renal disease and I recommend starting dialysis therapy. I explained this process would require tunneled hemodialysis catheter. Family we will discuss this and we will place interventional radiology tunneled catheter placement if in agreement Plan discussed with: Patient Total Time (mins): 33 OSKAR ALVAREZ MD May 01, 2025 12:27
[2025-05-01 13:00] VITALS: BP 128/77; PULSE 77; RESP 17; TEMP 98; O2SAT 98
[2025-05-01 15:07] LABS: INR 1.01 (0.9-1.15); Partial Thromboplastin Time 26.5 SEC (24.5-34.5); Prothrombin Time 10.7 sec (9.3-11.8)
[2025-05-01 17:00] VITALS: BP 141/84; PULSE 78; RESP 18; TEMP 97.5; O2SAT 98
[2025-05-02] VITALS (7 sets, daily range): BP systolic 115–153; BP diastolic 53–86; PULSE 67–92; RESP 12–18; TEMP 97.4–98; O2SAT 96–98
[2025-05-02] MEDS ORDERED: SODIUM CHL 0.9% 1000 ML BAG XX ONE (07:00)
[2025-05-02 08:01] LABS: Potassium 4.1 mmol/L (3.5-5.1); Sodium 137 mmol/L (136-145)
[2025-05-02 08:02] LABS: Anion Gap 9 (5-15); Calcium 9.0 mg/dL (8.7-10.4); Carbon Dioxide 35 mmol/L (20-31); Chloride 93 mmol/L (98-107)
[2025-05-02 08:07] LABS: BUN/Creatinine Ratio 11.2 (10.0-20.0); Glucose 98 mg/dL (74-106)
[2025-05-02 08:10] LABS: Blood Urea Nitrogen 93 mg/dL (9-23)
--- NOTE | 2025-05-02 10:48 | DVHPN2 ---
Progress Note - Dictate Date Seen: May 02, 2025 Medical Necessity Reason Pt with a Central, PICC or Fol: No Subjective Patient on commode during time of my rounds. vital signs Vital Sign Date Time Temp Pulse Resp B/P (MAP) Pulse Ox O2 Delivery O2 Flow Rate FiO2 05/01/25 20:00 Room Air* 0 21 05/01/25 17:00 97.5 78 18 141/84 (103) 98 97.5 Total Intake and Output 05/01/25 05/01/25 05/02/25 15:00 23:00 07:00 Intake Total 475 ml 800 ml Output Total 350 ml 700 ml Balance 125 ml 100 ml medications Current Medications Medications Dose Ordered Sig/Nicol Route Start Time Stop Time Status Last Admin Dose Admin Patient Own Medication 5 mg DAILY PO 04/29/25 10:00 Gabapentin 100 mg DAILY PO 04/29/25 10:00 05/01/25 09:31 100 MG Amlodipine Besylate 5 mg DAILY PO 04/29/25 10:00 05/01/25 09:32 5 MG Hydralazine HCl 10 mg Q6HP PRN IV 04/29/25 01:00 05/01/25 05:01 10 MG Diagnostic Test (Pha) 1 strip Q6HR 04/29/25 06:00 05/02/25 05:16 1 STRIP Insulin Human Regular Q6HR SC 04/29/25 06:00 05/01/25 12:18 3 UNITS Dextrose 50 ml UD PRN IV 04/29/25 01:00 Ondansetron HCl 4 mg Q4HP PRN IV 04/29/25 01:00 Acetaminophen 650 mg Q6HP PRN PO 04/29/25 01:00 04/30/25 23:33 650 MG Carbidopa/Levodopa 1 tab Q8H PO 04/29/25 12:00 05/02/25 05:16 1 TAB Sevelamer HCl 1,600 mg TIDWM PO 04/30/25 08:00 05/01/25 18:54 1,600 MG laboratory and microbiology Laboratory Tests 05/02/25 07:02 05/01/25 06:03 Test 05/02/25 07:02 Range/Units Serum Glucose 98 74-106 mg/dL Assessment/Plan Acute kidney injury hemodynamically mediated ckd 4 hyperkalemia metabolic acidosis Parkinsons disease anemia due to ckd Severe azotemia - urine volumes remain nonoliguric - patient may have more protracted course for renal recovery, Kidney ultrasound without signs of significant nephrosclerosis, We will continue to evaluate daily for kidney replacement therapy - currently essentially stable GFR. We will continue to follow closely. Plan discussed with: Other JOAQUIN MAGALLON MD May 02, 2025 10:48
--- NOTE | 2025-05-02 11:20 | DVHPN2 ---
Reviewed: Care Plan, H&P, Labs, Medications, Previous Orders, Radiology Changes from previous H/P or p: No Changes General: Per HPI Objective Vitals Vital Signs Date Time Temp Pulse Resp B/P (MAP) Pulse Ox O2 Delivery O2 Flow Rate FiO2 05/02/25 11:11 143/75 05/02/25 09:00 97.7 76 18 98 97.7 05/01/25 20:00 Room Air* 0 21 Intake/Output Intake and Output 05/02/25 07:00 Intake Total 1275 ml Output Total 1050 ml Balance 225 ml Intake Oral 1275 ml Output Urine Total 1050 ml # Voids 7 # Bowel Movements 3 General Appearance: Alert, Oriented X3 HEENT: Atraumatic Cardiovascular: Regular rate, Normal S1, Normal S2 Medications Current Medications Medications Dose Ordered Sig/Nicol Route Start Time Stop Time Status Last Admin Dose Admin Patient Own Medication 5 mg DAILY PO 04/29/25 10:00 Gabapentin 100 mg DAILY PO 04/29/25 10:00 05/02/25 11:10 100 MG Amlodipine Besylate 5 mg DAILY PO 04/29/25 10:00 05/02/25 11:11 5 MG Hydralazine HCl 10 mg Q6HP PRN IV 04/29/25 01:00 05/01/25 05:01 10 MG Diagnostic Test (Pha) 1 strip Q6HR 04/29/25 06:00 05/02/25 05:16 1 STRIP Insulin Human Regular Q6HR SC 04/29/25 06:00 05/01/25 12:18 3 UNITS Dextrose 50 ml UD PRN IV 04/29/25 01:00 Ondansetron HCl 4 mg Q4HP PRN IV 04/29/25 01:00 Acetaminophen 650 mg Q6HP PRN PO 04/29/25 01:00 04/30/25 23:33 650 MG Carbidopa/Levodopa 1 tab Q8H PO 04/29/25 12:00 05/02/25 05:16 1 TAB Sevelamer HCl 1,600 mg TIDWM PO 04/30/25 08:00 05/01/25 18:54 1,600 MG Sodium Chloride 1,000 ml @ 100 mls/hr Q10H IV 05/02/25 11:00 UNV Laboratory Results Laboratory Tests 05/01/25 06:03 05/02/25 07:02 Chemistry Test 05/02/25 07:02 Calcium Level 9.0 mg/dL (8.7-10.4) Coagulation Test 05/01/25 14:29 Prothrombin Time 10.7 sec (9.3-11.8) Prothrombin Time INR 1.01 (0.9-1.15) Activated Partial Thromboplast Time 26.5 SEC (24.5-34.5) Urinalysis Test 04/28/25 21:15 Urine Color Colorless (Yellow) Urine Clarity Clear (Clear) Urine pH 6.0 (5.0-9.0) Urine Specific [place] 1.012 (1.001-1.035) Urine Protein 3+ (Negative) H Urine Ketones Trace (Negative) Urine Blood 2+ /uL (Negative) H Urine Nitrite Negative (Negative) Urine Bilirubin Negative (Negative) Urine Urobilinogen Normal mg/dL (Negative) Urine Leukocyte Esterase Negative /uL (Negative) Urine RBC 2 /hpf (0 - 3) Urine Microscopic WBC < 1 /HPF (0-3) Urine Squamous Epithelial Cells Few /hpf (<5) Urine Amorphous Crystals Few /hpf (None Seen) Urine Bacteria None seen /hpf (None Seen) Urine Glucose Normal mg/dL (Normal) Labs and/or images reviewed: Labs reviewed by me, Image(s) reviewed by me Assessment/Plan Assessment/Plan Acute renal failure on chronic renal failure ( Accelerated hypertension Diabetes mellitus Parkinson's disease nausea, intractable, anemia of ckd 04/30/2025 nephrology is evaluating for possible dialysis close monitoring for improvement discussed with pt and pt's family 05/01/2025 pt to be started on HD by nephro tunneled cath to be placed Plan discussed with: Patient Date of Service: May 01, 2025 Billing Provider: NICHOLAS DOUGLAS DO Common Visit Codes: [id number] INP/OBS CARE(HIGH) NICHOLAS DOUGLAS DO May 02, 2025 11:20
--- NOTE | 2025-05-02 11:21 | DVHPN2 ---
Reviewed: Care Plan, H&P, Labs, Medications, Previous Orders, Radiology Changes from previous H/P or p: No Changes General: Per HPI Objective Vitals Vital Signs Date Time Temp Pulse Resp B/P (MAP) Pulse Ox O2 Delivery O2 Flow Rate FiO2 05/02/25 11:11 143/75 05/02/25 09:00 97.7 76 18 98 97.7 05/01/25 20:00 Room Air* 0 21 Intake/Output Intake and Output 05/02/25 07:00 Intake Total 1275 ml Output Total 1050 ml Balance 225 ml Intake Oral 1275 ml Output Urine Total 1050 ml # Voids 7 # Bowel Movements 3 General Appearance: Alert, Oriented X3 HEENT: Atraumatic Cardiovascular: Regular rate, Normal S1, Normal S2 Medications Current Medications Medications Dose Ordered Sig/Nicol Route Start Time Stop Time Status Last Admin Dose Admin Patient Own Medication 5 mg DAILY PO 04/29/25 10:00 Gabapentin 100 mg DAILY PO 04/29/25 10:00 05/02/25 11:10 100 MG Amlodipine Besylate 5 mg DAILY PO 04/29/25 10:00 05/02/25 11:11 5 MG Hydralazine HCl 10 mg Q6HP PRN IV 04/29/25 01:00 05/01/25 05:01 10 MG Diagnostic Test (Pha) 1 strip Q6HR 04/29/25 06:00 05/02/25 05:16 1 STRIP Insulin Human Regular Q6HR SC 04/29/25 06:00 05/01/25 12:18 3 UNITS Dextrose 50 ml UD PRN IV 04/29/25 01:00 Ondansetron HCl 4 mg Q4HP PRN IV 04/29/25 01:00 Acetaminophen 650 mg Q6HP PRN PO 04/29/25 01:00 04/30/25 23:33 650 MG Carbidopa/Levodopa 1 tab Q8H PO 04/29/25 12:00 05/02/25 05:16 1 TAB Sevelamer HCl 1,600 mg TIDWM PO 04/30/25 08:00 05/01/25 18:54 1,600 MG Sodium Chloride 1,000 ml @ 100 mls/hr Q10H IV 05/02/25 11:00 UNV Laboratory Results Laboratory Tests 05/01/25 06:03 05/02/25 07:02 Chemistry Test 05/02/25 07:02 Calcium Level 9.0 mg/dL (8.7-10.4) Coagulation Test 05/01/25 14:29 Prothrombin Time 10.7 sec (9.3-11.8) Prothrombin Time INR 1.01 (0.9-1.15) Activated Partial Thromboplast Time 26.5 SEC (24.5-34.5) Urinalysis Test 04/28/25 21:15 Urine Color Colorless (Yellow) Urine Clarity Clear (Clear) Urine pH 6.0 (5.0-9.0) Urine Specific [place] 1.012 (1.001-1.035) Urine Protein 3+ (Negative) H Urine Ketones Trace (Negative) Urine Blood 2+ /uL (Negative) H Urine Nitrite Negative (Negative) Urine Bilirubin Negative (Negative) Urine Urobilinogen Normal mg/dL (Negative) Urine Leukocyte Esterase Negative /uL (Negative) Urine RBC 2 /hpf (0 - 3) Urine Microscopic WBC < 1 /HPF (0-3) Urine Squamous Epithelial Cells Few /hpf (<5) Urine Amorphous Crystals Few /hpf (None Seen) Urine Bacteria None seen /hpf (None Seen) Urine Glucose Normal mg/dL (Normal) Assessment/Plan Assessment/Plan Acute renal failure on chronic renal failure ( Accelerated hypertension Diabetes mellitus Parkinson's disease nausea, intractable, anemia of ckd 04/30/2025 nephrology is evaluating for possible dialysis close monitoring for improvement discussed with pt and pt's family 05/01/2025 pt to be started on HD by nephro tunneled cath to be placed pending HD via tunneled cath chair time pending Plan discussed with: Patient Date of Service: May 02, 2025 Billing Provider: NICHOLAS DOUGLAS DO Common Visit Codes: [id number] INP/OBS CARE(HIGH) NICHOLAS DOUGLAS DO May 02, 2025 11:21
[2025-05-02] MEDS: fentaNYL CITRATE 100 MCG/2 ML VL ONE (13:14)
[2025-05-02] MEDS: LIDOCAINE 2%HCL (LOCAL ANESTH.) INJ 20ML MDV ONE (13:14)
[2025-05-02] MEDS: MIDAZOLAM HCL 2MG/2ML 2ml VIAL (1mg/ml) ONE (13:14)
[2025-05-02] MEDS: HEPARIN SODIUM (PORCINE) 5000 UNITS/ML 1ML VIAL ONE (13:14)
[2025-05-02 13:32] LABS: Albumin 3.6 g/dL (3.2-4.8); Alkaline Phosphatase 49 U/L (46-116); Bilirubin, Total 0.4 mg/dL (0.2-1.0); Total Protein 6.2 g/dL (5.7-8.2)
[2025-05-02] MEDS: ceFAZolin 1GM/50ML 50 ML IV ONE (13:32)
[2025-05-02 13:34] LABS: Bilirubin, Direct < 0.1 mg/dL (<0.3)
[2025-05-02 13:47] LABS: Alanine Aminotransferase < 9 U/L (7-40)
[2025-05-02] MEDS: SOD CHL 0.45% 1,000 ML IV SCH (18:55)
[2025-05-03] VITALS (7 sets, daily range): BP systolic 133–165; BP diastolic 78–88; PULSE 75–96; RESP 16–18; TEMP 97.5–98.7; O2SAT 98–99
--- NOTE | 2025-05-03 16:20 | DVHPN2 ---
Progress Note Date Seen: May 03, 2025 Medical Necessity Reason Pt with a Central, PICC or Fol: Yes Subjective Review of Systems Pt states he had tunneled cath placed yesterday. Awaiting dialysis Patient reports: No new complaints Changes from previous H/P or p: No Changes Objective vital signs Vital Sign Date Time Temp Pulse Resp B/P (MAP) Pulse Ox O2 Delivery O2 Flow Rate FiO2 05/03/25 12:48 97.5 79 16 142/80 (100) 98 97.5 05/03/25 08:00 Room Air* 0 21 Total Intake and Output 05/02/25 05/02/25 05/03/25 15:00 23:00 07:00 Intake Total 420 ml 940 ml Output Total 480 ml Balance 420 ml 460 ml medications Current Medications Medications Dose Ordered Sig/Nicol Route Start Time Stop Time Status Last Admin Dose Admin Patient Own Medication 5 mg DAILY PO 04/29/25 10:00 Gabapentin 100 mg DAILY PO 04/29/25 10:00 05/03/25 09:59 100 MG Amlodipine Besylate 5 mg DAILY PO 04/29/25 10:00 05/03/25 09:59 5 MG Hydralazine HCl 10 mg Q6HP PRN IV 04/29/25 01:00 05/01/25 05:01 10 MG Diagnostic Test (Pha) 1 strip Q6HR 04/29/25 06:00 05/03/25 12:05 1 STRIP Insulin Human Regular Q6HR SC 04/29/25 06:00 05/03/25 12:06 4 UNITS Dextrose 50 ml UD PRN IV 04/29/25 01:00 Ondansetron HCl 4 mg Q4HP PRN IV 04/29/25 01:00 Acetaminophen 650 mg Q6HP PRN PO 04/29/25 01:00 04/30/25 23:33 650 MG Carbidopa/Levodopa 1 tab Q8H PO 04/29/25 12:00 05/03/25 15:26 1 TAB Sevelamer HCl 1,600 mg TIDWM PO 04/30/25 08:00 05/03/25 15:26 1,600 MG Sodium Chloride 1,000 ml @ 100 mls/hr Q10H IV 05/02/25 11:00 05/03/25 15:29 100 MLS/HR Examination Gen: Appears stated age, NAD Lungs: CTA, bilateral air entry Heart: RRR, normal S1 and S2 Ext: No edema Neuro: A&O x 4 laboratory and microbiology Laboratory Tests 05/02/25 07:02 05/01/25 06:03 Test 05/02/25 07:02 Range/Units Serum Glucose 98 74-106 mg/dL Labs and/or images reviewed: Labs reviewed by me Problem List/Assessment/Plan Problem List/Assessment/Plan IMP Acute kidney injury hemodynamically mediated ckd 4 hyperkalemia metabolic acidosis Parkinsons disease anemia due to ckd Severe azotemia REC - Noted plan from prior repeat chief Dr. Stanford was to initiate dialysis. HD tentatively 05/03 - Serial chemistry panels - We will continue to evaluate daily for WELL CLEANER - Strict I&Os - Blood pressure control - We will continue to follow closely Case discussed with Dr. Spencer Plan discussed with: Patient JORGE RODGERS [facility] May 03, 2025 16:20
[2025-05-04 05:00] VITALS: BP 170/92; PULSE 89; RESP 16; TEMP 98; O2SAT 98
[2025-05-04 06:30] LABS: Chloride 99 mmol/L (98-107); Potassium 4.5 mmol/L (3.5-5.1); Sodium 137 mmol/L (136-145)
[2025-05-04 06:31] LABS: Anion Gap 8 (5-15); Carbon Dioxide 30 mmol/L (20-31)
[2025-05-04 06:32] LABS: Calcium 9.0 mg/dL (8.7-10.4)
[2025-05-04 06:36] LABS: BUN/Creatinine Ratio 9.9 (10.0-20.0); Glucose 75 mg/dL (74-106)
[2025-05-04 06:37] LABS: Blood Urea Nitrogen 55 mg/dL (9-23)
[2025-05-04 09:00] VITALS: BP 158/85; PULSE 92; RESP 17; TEMP 98; O2SAT 99
[2025-05-04] MEDS: CARBIDOPA W LEVODOPA 25/250mg TABLET PO SCH (10:22)
--- NOTE | 2025-05-04 10:57 | DVHPN2 ---
Reviewed: Care Plan, H&P, Labs, Medications, Previous Orders, Radiology Changes from previous H/P or p: No Changes General: Per HPI Objective Vitals Vital Signs Date Time Temp Pulse Resp B/P (MAP) Pulse Ox O2 Delivery O2 Flow Rate FiO2 05/04/25 10:24 155/87 05/04/25 08:05 Room Air* 0 21 05/04/25 05:00 98.0 89 16 98 98.0 Intake/Output Intake and Output 05/04/25 07:00 Intake Total 720 ml Output Total 600 ml Balance 120 ml Intake Oral 720 ml Output Urine Total 600 ml General Appearance: Alert, Oriented X3 HEENT: Atraumatic Cardiovascular: Regular rate, Normal S1, Normal S2 Medications Current Medications Medications Dose Ordered Sig/Nicol Route Start Time Stop Time Status Last Admin Dose Admin Patient Own Medication 5 mg DAILY PO 04/29/25 10:00 Gabapentin 100 mg DAILY PO 04/29/25 10:00 05/04/25 10:21 100 MG Amlodipine Besylate 5 mg DAILY PO 04/29/25 10:00 05/04/25 10:24 5 MG Hydralazine HCl 10 mg Q6HP PRN IV 04/29/25 01:00 05/04/25 05:18 10 MG Diagnostic Test (Pha) 1 strip Q6HR 04/29/25 06:00 05/04/25 05:22 1 STRIP Insulin Human Regular Q6HR SC 04/29/25 06:00 05/03/25 12:06 4 UNITS Dextrose 50 ml UD PRN IV 04/29/25 01:00 Ondansetron HCl 4 mg Q4HP PRN IV 04/29/25 01:00 Acetaminophen 650 mg Q6HP PRN PO 04/29/25 01:00 04/30/25 23:33 650 MG Sevelamer HCl 1,600 mg TIDWM PO 04/30/25 08:00 05/04/25 10:22 1,600 MG Sodium Chloride 1,000 ml @ 100 mls/hr Q10H IV 05/02/25 11:00 05/03/25 15:29 100 MLS/HR Carbidopa/Levodopa 1 tab Q8H PO 05/04/25 09:00 05/04/25 10:22 1 TAB Laboratory Results Laboratory Tests 05/01/25 06:03 05/04/25 05:41 Chemistry Test 05/04/25 05:41 Calcium Level 9.0 mg/dL (8.7-10.4) Urinalysis Test 04/28/25 21:15 Urine Color Colorless (Yellow) Urine Clarity Clear (Clear) Urine pH 6.0 (5.0-9.0) Urine Specific [place] 1.012 (1.001-1.035) Urine Protein 3+ (Negative) H Urine Ketones Trace (Negative) Urine Blood 2+ /uL (Negative) H Urine Nitrite Negative (Negative) Urine Bilirubin Negative (Negative) Urine Urobilinogen Normal mg/dL (Negative) Urine Leukocyte Esterase Negative /uL (Negative) Urine RBC 2 /hpf (0 - 3) Urine Microscopic WBC < 1 /HPF (0-3) Urine Squamous Epithelial Cells Few /hpf (<5) Urine Amorphous Crystals Few /hpf (None Seen) Urine Bacteria None seen /hpf (None Seen) Urine Glucose Normal mg/dL (Normal) Assessment/Plan Assessment/Plan Acute renal failure on chronic renal failure ( Accelerated hypertension Diabetes mellitus Parkinson's disease nausea, intractable, anemia of ckd 04/30/2025 nephrology is evaluating for possible dialysis close monitoring for improvement discussed with pt and pt's family 05/01/2025 pt to be started on HD by nephro tunneled cath to be placed pending HD via tunneled cath chair time pending 05/03/25 pending chair time discussed with pt and nursing Plan discussed with: Patient Date of Service: May 03, 2025 Billing Provider: NICHOLAS DOUGLAS DO Common Visit Codes: [id number] INP/OBS CARE(HIGH) NICHOLAS DOUGLAS DO May 04, 2025 10:57
--- NOTE | 2025-05-04 10:58 | DVHPN2 ---
Reviewed: Care Plan, H&P, Labs, Medications, Previous Orders, Radiology Changes from previous H/P or p: No Changes General: Per HPI Objective Vitals Vital Signs Date Time Temp Pulse Resp B/P (MAP) Pulse Ox O2 Delivery O2 Flow Rate FiO2 05/04/25 10:24 155/87 05/04/25 08:05 Room Air* 0 21 05/04/25 05:00 98.0 89 16 98 98.0 Intake/Output Intake and Output 05/04/25 07:00 Intake Total 720 ml Output Total 600 ml Balance 120 ml Intake Oral 720 ml Output Urine Total 600 ml General Appearance: Alert, Oriented X3 HEENT: Atraumatic Cardiovascular: Regular rate, Normal S1, Normal S2 Medications Current Medications Medications Dose Ordered Sig/Nicol Route Start Time Stop Time Status Last Admin Dose Admin Patient Own Medication 5 mg DAILY PO 04/29/25 10:00 Gabapentin 100 mg DAILY PO 04/29/25 10:00 05/04/25 10:21 100 MG Amlodipine Besylate 5 mg DAILY PO 04/29/25 10:00 05/04/25 10:24 5 MG Hydralazine HCl 10 mg Q6HP PRN IV 04/29/25 01:00 05/04/25 05:18 10 MG Diagnostic Test (Pha) 1 strip Q6HR 04/29/25 06:00 05/04/25 05:22 1 STRIP Insulin Human Regular Q6HR SC 04/29/25 06:00 05/03/25 12:06 4 UNITS Dextrose 50 ml UD PRN IV 04/29/25 01:00 Ondansetron HCl 4 mg Q4HP PRN IV 04/29/25 01:00 Acetaminophen 650 mg Q6HP PRN PO 04/29/25 01:00 04/30/25 23:33 650 MG Sevelamer HCl 1,600 mg TIDWM PO 04/30/25 08:00 05/04/25 10:22 1,600 MG Sodium Chloride 1,000 ml @ 100 mls/hr Q10H IV 05/02/25 11:00 05/03/25 15:29 100 MLS/HR Carbidopa/Levodopa 1 tab Q8H PO 05/04/25 09:00 05/04/25 10:22 1 TAB Laboratory Results Laboratory Tests 05/01/25 06:03 05/04/25 05:41 Chemistry Test 05/04/25 05:41 Calcium Level 9.0 mg/dL (8.7-10.4) Urinalysis Test 04/28/25 21:15 Urine Color Colorless (Yellow) Urine Clarity Clear (Clear) Urine pH 6.0 (5.0-9.0) Urine Specific [place] 1.012 (1.001-1.035) Urine Protein 3+ (Negative) H Urine Ketones Trace (Negative) Urine Blood 2+ /uL (Negative) H Urine Nitrite Negative (Negative) Urine Bilirubin Negative (Negative) Urine Urobilinogen Normal mg/dL (Negative) Urine Leukocyte Esterase Negative /uL (Negative) Urine RBC 2 /hpf (0 - 3) Urine Microscopic WBC < 1 /HPF (0-3) Urine Squamous Epithelial Cells Few /hpf (<5) Urine Amorphous Crystals Few /hpf (None Seen) Urine Bacteria None seen /hpf (None Seen) Urine Glucose Normal mg/dL (Normal) Assessment/Plan Assessment/Plan Acute renal failure on chronic renal failure ( Accelerated hypertension Diabetes mellitus Parkinson's disease nausea, intractable, anemia of ckd 04/30/2025 nephrology is evaluating for possible dialysis close monitoring for improvement discussed with pt and pt's family 05/01/2025 pt to be started on HD by nephro tunneled cath to be placed pending HD via tunneled cath chair time pending 05/03/25 pending chair time discussed with pt and nursing 05/04/2025 pending edelmira time Plan discussed with: Patient Date of Service: May 04, 2025 Billing Provider: NICHOLAS DOUGLAS DO Common Visit Codes: [id number] INP/OBS CARE(HIGH) NICHOLAS DOUGLAS DO May 04, 2025 10:58
[2025-05-04 13:00] VITALS: BP 142/85; PULSE 94; RESP 18; TEMP 97.6; O2SAT 98
[2025-05-04] MEDS ORDERED: SODIUM CHL 0.9% 1000 ML BAG XX ONE (13:00)
[2025-05-04 17:00] VITALS: BP 148/83; PULSE 93; RESP 18; TEMP 98; O2SAT 97
--- NOTE | 2025-05-04 18:44 | DVHPN2 ---
Progress Note Date Seen: May 04, 2025 Medical Necessity Reason Pt with a Central, PICC or Fol: Yes Subjective Review of Systems The patient states he tolerated dialysis well. Patient reports: No new complaints, Feels better Objective vital signs Vital Sign Date Time Temp Pulse Resp B/P (MAP) Pulse Ox O2 Delivery O2 Flow Rate FiO2 05/04/25 17:00 98.0 93 18 148/83 (104) 97 98.0 05/04/25 08:05 Room Air* 0 21 Total Intake and Output 05/03/25 05/03/25 05/04/25 15:00 23:00 07:00 Intake Total 240 ml 480 ml Output Total 600 ml Balance 240 ml -120 ml medications Current Medications Medications Dose Ordered Sig/Nicol Route Start Time Stop Time Status Last Admin Dose Admin Patient Own Medication 5 mg DAILY PO 04/29/25 10:00 Gabapentin 100 mg DAILY PO 04/29/25 10:00 05/04/25 10:21 100 MG Amlodipine Besylate 5 mg DAILY PO 04/29/25 10:00 05/04/25 10:24 5 MG Hydralazine HCl 10 mg Q6HP PRN IV 04/29/25 01:00 05/04/25 05:18 10 MG Diagnostic Test (Pha) 1 strip Q6HR 04/29/25 06:00 05/04/25 12:00 1 STRIP Insulin Human Regular Q6HR SC 04/29/25 06:00 05/03/25 12:06 4 UNITS Dextrose 50 ml UD PRN IV 04/29/25 01:00 Ondansetron HCl 4 mg Q4HP PRN IV 04/29/25 01:00 Acetaminophen 650 mg Q6HP PRN PO 04/29/25 01:00 04/30/25 23:33 650 MG Sevelamer HCl 1,600 mg TIDWM PO 04/30/25 08:00 05/04/25 13:46 1,600 MG Sodium Chloride 1,000 ml @ 100 mls/hr Q10H IV 05/02/25 11:00 05/03/25 15:29 100 MLS/HR Carbidopa/Levodopa 1 tab Q8H PO 05/04/25 09:00 05/04/25 10:22 1 TAB Examination Gen: Appears stated age, NAD Lungs: CTA, bilateral air entry Heart: RRR, normal S1 and S2 Ext: No edema Neuro: A&O x 4 laboratory and microbiology Laboratory Tests 05/04/25 05:41 05/01/25 06:03 Test 05/04/25 05:41 Range/Units Serum Glucose 75 74-106 mg/dL Labs and/or images reviewed: Labs reviewed by me Problem List/Assessment/Plan Problem List/Assessment/Plan IMP Acute kidney injury hemodynamically mediated ckd 4 hyperkalemia metabolic acidosis Parkinsons disease anemia due to ckd Severe azotemia REC - 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 Stanford was to initiate dialysis. HD today - chemistry panel - We will continue to evaluate daily for TAB BUILDER - Strict I&Os - Blood pressure control - We will continue to follow Case discussed with Dr. Spencer Plan discussed with: Patient JORGE [facility] May 04, 2025 18:44
[2025-05-04 21:00] VITALS: BP 149/85; PULSE 88; RESP 16; TEMP 97.9; O2SAT 98
[2025-05-05] VITALS (7 sets, daily range): BP systolic 140–162; BP diastolic 73–91; PULSE 65–89; RESP 16–21; TEMP 97.6–98.4; O2SAT 98–99
[2025-05-05 07:07] LABS: Chloride 100 mmol/L (98-107); Potassium 4.6 mmol/L (3.5-5.1); Sodium 137 mmol/L (136-145)
[2025-05-05 07:08] LABS: Anion Gap 6 (5-15)
[2025-05-05 07:13] LABS: BUN/Creatinine Ratio 8.5 (10.0-20.0); Glucose 88 mg/dL (74-106)
[2025-05-05 07:14] LABS: Blood Urea Nitrogen 40 mg/dL (9-23); Calcium 8.7 mg/dL (8.7-10.4); Carbon Dioxide 31 mmol/L (20-31)
--- NOTE | 2025-05-05 08:14 | DVH ---
PROCEDURE: Tunneled dialysis catheter placement Procedural Personnel Attending physician(s): Scott Gagnon Fellow physician(s): None Resident physician(s): None Advanced practice provider(s): None Pre-procedure diagnosis: End stage renal disease Post-procedure diagnosis: Same Indication: Performance of hemodialysis Additional clinical history: None Complications: No immediate complications. IMPRESSION: Insertion of right -sided tunneled dialysis catheter, with tip in the expected location of the right atrium . Plan: The catheter may be used immediately. PROCEDURE SUMMARY: - Venous access with ultrasound guidance - Tunneled dialysis catheter insertion with fluoroscopic guidance - Additional procedure(s): None PROCEDURE DETAILS: Pre-procedure Consent: Informed consent for the procedure including risks, benefits and alternatives was obtained a nd time-out was performed prior to the procedure. Preparation: The site was prepared and draped using maximal sterile barrier technique including cutan eous antisepsis. Anesthesia/sedation level of anesthesia/sedation: Moderate sedation (conscious sedation) Anesthesia/sedation administered by: Independent trained observer under attending supervision with co ntinuous monitoring of the patient s level of consciousness and physiologic status Total intra-service sedation time (minutes): 45 Access Local anesthesia was administered. The vessel was sonographically evaluated and determined to be mobley nt Real time ultrasound was used to visualize needle entry into the vessel and a permanent image was sto red . Laterality: Right Vein accessed: Internal jugular vein Internal jugular vein patency: Patent or otherwise accessible on at least one side Access technique: Micropuncture set with 21 gauge needle Venography indication for venography: None Catheter tip position for venography: Not applicable Findings: Not applicable Catheter placement An incision was made near the venous access site and the catheter was tunneled subcutaneously to the venous access site. The catheter was advanced via a peel-away sheath into the vein under fluoroscopic guidance. Catheter tip location was fluoroscopically verified and a permanent image was stored. Catheter placed: Duramax Catheter cuff-to-tip length (cm): 19 Catheter tip: right atrium Catheter flush: Heparin (1000 units/mL) Closure A sterile dressing was applied. Access site closure technique: Tissue adhesive Catheter securement technique: Non-absorbable suture contrast Contrast agent: None Contrast volume (mL): 0 Radiation Dose Fluoroscopy time (seconds ): 4 Reference air kerma (mGy ): 0.1 Kerma area product (Gy-cm2 ): 0.001 Additional Details Additional description of procedure: None Registry event: V /3 /g Device used: None Equipment details: None Unique Device Identifiers: Not available Specimens removed: None Estimated blood loss (mL): Less than 10 Standardized report: [email or web address] Attestation Signer name: Scott Gagnon I attest that I was present for the entire procedure . I reviewed the stored images and agree with e report as written.
--- NOTE | 2025-05-05 08:47 | DVHPN2 ---
Reviewed: Care Plan, H&P, Labs, Medications, Previous Orders, Radiology Changes from previous H/P or p: No Changes General: Per HPI Objective Vitals Vital Signs Date Time Temp Pulse Resp B/P (MAP) Pulse Ox O2 Delivery O2 Flow Rate FiO2 05/05/25 05:00 97.6 65 16 140/73 (95) 98 97.6 05/04/25 20:00 Room Air* 0 21 Intake/Output Intake and Output 05/05/25 07:00 Intake Total 1080 ml Output Total 825 ml Balance 255 ml Intake Oral 1080 ml Output Urine Total 825 ml General Appearance: Alert, Oriented X3 HEENT: Atraumatic Cardiovascular: Regular rate, Normal S1, Normal S2 Medications Current Medications Medications Dose Ordered Sig/Nicol Route Start Time Stop Time Status Last Admin Dose Admin Patient Own Medication 5 mg DAILY PO 04/29/25 10:00 Gabapentin 100 mg DAILY PO 04/29/25 10:00 05/04/25 10:21 100 MG Amlodipine Besylate 5 mg DAILY PO 04/29/25 10:00 05/04/25 10:24 5 MG Hydralazine HCl 10 mg Q6HP PRN IV 04/29/25 01:00 05/04/25 05:18 10 MG Diagnostic Test (Pha) 1 strip Q6HR 04/29/25 06:00 05/05/25 05:47 1 STRIP Insulin Human Regular Q6HR SC 04/29/25 06:00 05/03/25 12:06 4 UNITS Dextrose 50 ml UD PRN IV 04/29/25 01:00 Ondansetron HCl 4 mg Q4HP PRN IV 04/29/25 01:00 Acetaminophen 650 mg Q6HP PRN PO 04/29/25 01:00 04/30/25 23:33 650 MG Sevelamer HCl 1,600 mg TIDWM PO 04/30/25 08:00 05/04/25 19:19 1,600 MG Sodium Chloride 1,000 ml @ 100 mls/hr Q10H IV 05/02/25 11:00 05/03/25 15:29 100 MLS/HR Carbidopa/Levodopa 1 tab Q8H PO 05/04/25 09:00 05/05/25 01:53 1 TAB Laboratory Results Laboratory Tests 05/01/25 06:03 05/05/25 05:52 Chemistry Test 05/05/25 05:52 Calcium Level 8.7 mg/dL (8.7-10.4) Urinalysis Test 04/28/25 21:15 Urine Color Colorless (Yellow) Urine Clarity Clear (Clear) Urine pH 6.0 (5.0-9.0) Urine Specific [place] 1.012 (1.001-1.035) Urine Protein 3+ (Negative) H Urine Ketones Trace (Negative) Urine Blood 2+ /uL (Negative) H Urine Nitrite Negative (Negative) Urine Bilirubin Negative (Negative) Urine Urobilinogen Normal mg/dL (Negative) Urine Leukocyte Esterase Negative /uL (Negative) Urine RBC 2 /hpf (0 - 3) Urine Microscopic WBC < 1 /HPF (0-3) Urine Squamous Epithelial Cells Few /hpf (<5) Urine Amorphous Crystals Few /hpf (None Seen) Urine Bacteria None seen /hpf (None Seen) Urine Glucose Normal mg/dL (Normal) Labs and/or images reviewed: Labs reviewed by me, Image(s) reviewed by me Assessment/Plan Assessment/Plan Acute renal failure on chronic renal failure ( Accelerated hypertension Diabetes mellitus Parkinson's disease nausea, intractable, anemia of ckd 04/30/2025 nephrology is evaluating for possible dialysis close monitoring for improvement discussed with pt and pt's family 05/01/2025 pt to be started on HD by nephro tunneled cath to be placed pending HD via tunneled cath chair time pending 05/03/25 pending chair time discussed with pt and nursing 05/04/2025 pending edelmira time 05/05/2025 pending chair time Plan discussed with: Patient Date of Service: May 04, 2025 Billing Provider: NICHOLAS DOUGLAS DO Common Visit Codes: [id number] INP/OBS CARE(HIGH) NICHOLAS DOUGLAS DO May 05, 2025 08:47
--- NOTE | 2025-05-05 10:57 | DVHPN2 ---
Subjective Kiswahili-speaking; staff translated; did not share any complaints Reviewed: Care Plan, H&P, Labs, Medications, Previous Orders, Radiology, Other (Consultation) Changes from previous H/P or p: No Changes Objective Vitals Vital Signs Date Time Temp Pulse Resp B/P (MAP) Pulse Ox O2 Delivery O2 Flow Rate FiO2 05/05/25 09:38 151/82 05/05/25 09:04 98.1 85 18 98 98.1 05/05/25 08:10 Room Air* 0 21 Intake/Output Intake and Output 05/05/25 07:00 Intake Total 1080 ml Output Total 825 ml Balance 255 ml Intake Oral 1080 ml Output Urine Total 825 ml General Appearance: Alert, Oriented X3, Cooperative HEENT: Atraumatic, Other (Decreased vision; can see fingers but can not read letters from 3 ft) Lungs: Clear to auscultation, Normal air movement Chest/Breasts: Other (Right chest hemodialysis catheter with no signs of bleeding/infection) Cardiovascular: Regular rate, Normal S1, Normal S2 Abdomen: Normal bowel sounds, Soft, No tenderness Neuro: Normal speech, Cranial nerves 3-12 NL Psych/Mental Status: Mental status NL, Mood NL Medications Current Medications Medications Dose Ordered Sig/Nicol Route Start Time Stop Time Status Last Admin Dose Admin Gabapentin 100 mg DAILY PO 04/29/25 10:00 05/05/25 09:34 100 MG Hydralazine HCl 10 mg Q6HP PRN IV 04/29/25 01:00 05/04/25 05:18 10 MG Diagnostic Test (Pha) 1 strip Q6HR 04/29/25 06:00 05/05/25 05:47 1 STRIP Insulin Human Regular Q6HR SC 04/29/25 06:00 05/03/25 12:06 4 UNITS Dextrose 50 ml UD PRN IV 04/29/25 01:00 Ondansetron HCl 4 mg Q4HP PRN IV 04/29/25 01:00 Acetaminophen 650 mg Q6HP PRN PO 04/29/25 01:00 04/30/25 23:33 650 MG Sevelamer HCl 1,600 mg TIDWM PO 04/30/25 08:00 05/05/25 09:34 1,600 MG Carbidopa/Levodopa 1 tab Q8H PO 05/04/25 09:00 05/05/25 09:34 1 TAB Amlodipine Besylate 10 mg DAILY PO 05/06/25 10:00 Furosemide 40 mg BIDD PO 05/05/25 18:00 Losartan Potassium 50 mg DAILY PO 05/06/25 10:00 Laboratory Results Laboratory Tests 05/01/25 06:03 05/05/25 05:52 Chemistry Test 05/05/25 05:52 Calcium Level 8.7 mg/dL (8.7-10.4) Urinalysis Test 04/28/25 21:15 Urine Color Colorless (Yellow) Urine Clarity Clear (Clear) Urine pH 6.0 (5.0-9.0) Urine Specific [place] 1.012 (1.001-1.035) Urine Protein 3+ (Negative) H Urine Ketones Trace (Negative) Urine Blood 2+ /uL (Negative) H Urine Nitrite Negative (Negative) Urine Bilirubin Negative (Negative) Urine Urobilinogen Normal mg/dL (Negative) Urine Leukocyte Esterase Negative /uL (Negative) Urine RBC 2 /hpf (0 - 3) Urine Microscopic WBC < 1 /HPF (0-3) Urine Squamous Epithelial Cells Few /hpf (<5) Urine Amorphous Crystals Few /hpf (None Seen) Urine Bacteria None seen /hpf (None Seen) Urine Glucose Normal mg/dL (Normal) Labs and/or images reviewed: Labs reviewed by me, Image(s) reviewed by me Assessment/Plan Assessment/Plan Covering: # CKD stage 5; now ESRD; needing hemodialysis # Hypertensive kidney disease with ESRD # Diabetes mellitus type 2 with ESRD # Diabetic neuropathy # Hyperkalemia due to ESRD # Metabolic acidosis due to ESRD # Parkinson disease # Normocytic anemia; due to ESRD # Decreased vision; most likely due to diabetes mellitus type 2 # Severe azotemia # Parkinson disease # Morbid obesity No symptoms/signs of active bleeding Strict input and output measurements Hemodialysis as per Nephrology; right chest hemodialysis catheter placed by IR Continue furosemide by Nephrology Continue antihypertensive medications and adjust according to blood pressure measurements Continue insulin therapy and adjust according to blood glucose measurements Counseled the patient on the importance of adopting healthy lifestyle with diet and exercise in order to lose weight Boat Garnisher consulted for discharge needs and to establish outpatient hemodialysis chair time Hepatitis panel results are negative; QuantiFERON gold results are pending Continue gabapentin Continue carbidopa/levodopa Advised to visit with Ophthalmology as outpatient Continue monitoring Goals of care discussed with the patient for 20 minutes; full code Late Entry. This medical document was created using an electronic medical record system with computerized dictation system. Although this document has been carefully reviewed, there might still be some phonetic and typographical errors. These areas are purely typographical due to imperfections of the software programs, and do not reflect any compromise in the patient's medical care. Plan discussed with: Patient, Other (Nurse) Date of Service: May 05, 2025 Billing Provider: GAIL ARMENDARIZ MD Common Visit Codes: [id number] INP/OBS CARE(HIGH) Secondary Visit Codes: [id number] CARE PLAN 30 MINUTES (20 minutes) GAIL ARMENDARIZ MD May 05, 2025 10:57
[2025-05-05] MEDS: LOSARTAN POTASSIUM 50 MG TAB PO ONE (11:13)
--- NOTE | 2025-05-05 14:29 | DVHPN2 ---
Progress Note Date Seen: May 05, 2025 Medical Necessity Reason Pt with a Central, PICC or Fol: Yes Subjective Patient reports: No new complaints Review of Systems: Deferred Objective vital signs Vital Sign Date Time Temp Pulse Resp B/P (MAP) Pulse Ox O2 Delivery O2 Flow Rate FiO2 05/05/25 11:13 149/76 05/05/25 09:04 98.1 85 18 98 98.1 05/05/25 08:10 Room Air* 0 21 Total Intake and Output 05/04/25 05/04/25 05/05/25 15:00 23:00 07:00 Intake Total 840 ml 240 ml Output Total 525 ml 300 ml Balance 315 ml -60 ml medications Current Medications Medications Dose Ordered Sig/Nicol Route Start Time Stop Time Status Last Admin Dose Admin Gabapentin 100 mg DAILY PO 04/29/25 10:00 05/05/25 09:34 100 MG Hydralazine HCl 10 mg Q6HP PRN IV 04/29/25 01:00 05/04/25 05:18 10 MG Diagnostic Test (Pha) 1 strip Q6HR 04/29/25 06:00 05/05/25 11:09 1 STRIP Insulin Human Regular Q6HR SC 04/29/25 06:00 05/03/25 12:06 4 UNITS Dextrose 50 ml UD PRN IV 04/29/25 01:00 Ondansetron HCl 4 mg Q4HP PRN IV 04/29/25 01:00 Acetaminophen 650 mg Q6HP PRN PO 04/29/25 01:00 04/30/25 23:33 650 MG Sevelamer HCl 1,600 mg TIDWM PO 04/30/25 08:00 05/05/25 11:13 1,600 MG Carbidopa/Levodopa 1 tab Q8H PO 05/04/25 09:00 05/05/25 09:34 1 TAB Amlodipine Besylate 10 mg DAILY PO 05/06/25 10:00 Furosemide 40 mg BIDD PO 05/05/25 18:00 Losartan Potassium 50 mg DAILY PO 05/06/25 10:00 laboratory and microbiology Laboratory Tests 05/05/25 05:52 05/01/25 06:03 Test 05/05/25 05:52 Range/Units Serum Glucose 88 74-106 mg/dL Problem List/Assessment/Plan Problem List/Assessment/Plan Chronic kidney disease five now ESRD needing HD hyperkalemia metabolic acidosis Parkinsons disease anemia due to ckd Severe azotemia recs HD tomorrow Outpatient chair time We will follow Plan discussed with: Patient My Orders My Orders Orders - MARTIN CRUZ MD Procedure Category Date Status Time Amlodipine Tablet PHA 05/06/25 In Process (Norvasc Tablet) 10:00 Furosemide Tablet PHA 05/05/25 In Process (Lasix Tablet) 18:00 Losartan Tablet PHA 05/06/25 In Process (Cozaar Tablet) 10:00 MARTIN CRUZ MD May 05, 2025 14:29
[2025-05-05] MEDS: FUROSEMIDE 20 MG TAB PO SCH (18:59)
[2025-05-06 05:00] VITALS: BP 160/87; PULSE 85; RESP 22; TEMP 97.9; O2SAT 99
[2025-05-06 06:54] LABS: Anion Gap 6 (5-15); Carbon Dioxide 29 mmol/L (20-31); Potassium 4.8 mmol/L (3.5-5.1)
[2025-05-06 06:55] LABS: Calcium 8.9 mg/dL (8.7-10.4)
[2025-05-06 06:56] LABS: Hemoglobin 7.5 g/dL (13.5-17.5); Mean Corpuscular Volume 88.2 fL (80.0-100.0); Nucleated Red Blood Cells % 0.0 %
[2025-05-06 07:00] LABS: BUN/Creatinine Ratio 8.8 (10.0-20.0); Glucose 82 mg/dL (74-106)
[2025-05-06 07:01] LABS: Blood Urea Nitrogen 51 mg/dL (9-23); Chloride 97 mmol/L (98-107); Hematocrit 21.1 % (41.0-53.0); Mean Corpuscular Hemoglobin 31.6 pg (28.0-32.0); Sodium 132 mmol/L (136-145)
[2025-05-06 09:00] VITALS: BP 133/74; PULSE 86; RESP 17; TEMP 98.2; O2SAT 93
--- NOTE | 2025-05-06 09:44 | DVHPN2 ---
Subjective Mohawk-speaking; staff translated; did not share any complaints; tolerated well hemodialysis this morning Reviewed: Care Plan, H&P, Labs, Medications, Previous Orders, Radiology, Other (Consultation) Changes from previous H/P or p: No Changes Objective Vitals Vital Signs Date Time Temp Pulse Resp B/P (MAP) Pulse Ox O2 Delivery O2 Flow Rate FiO2 05/06/25 05:59 160/87 05/06/25 05:00 97.9 85 22 99 97.9 05/05/25 20:00 Room Air* 0 21 Intake/Output Intake and Output 05/06/25 07:00 Intake Total 1560 ml Balance 1560 ml Intake Oral 1560 ml # Voids 8 General Appearance: Alert, Oriented X3, Cooperative HEENT: Atraumatic, Other (Decreased vision; can see fingers but can not read letters from 3 ft) Lungs: Clear to auscultation, Normal air movement Chest/Breasts: Other (Right chest hemodialysis catheter with no signs of bleeding/infection) Cardiovascular: Regular rate, Normal S1, Normal S2 Abdomen: Normal bowel sounds, Soft, No tenderness Neuro: Normal speech, Cranial nerves 3-12 NL Psych/Mental Status: Mental status NL, Mood NL Medications Current Medications Medications Dose Ordered Sig/Nicol Route Start Time Stop Time Status Last Admin Dose Admin Gabapentin 100 mg DAILY PO 04/29/25 10:00 05/05/25 09:34 100 MG Hydralazine HCl 10 mg Q6HP PRN IV 04/29/25 01:00 05/04/25 05:18 10 MG Diagnostic Test (Pha) 1 strip Q6HR 04/29/25 06:00 05/06/25 05:59 1 STRIP Insulin Human Regular Q6HR SC 04/29/25 06:00 05/03/25 12:06 4 UNITS Dextrose 50 ml UD PRN IV 04/29/25 01:00 Ondansetron HCl 4 mg Q4HP PRN IV 04/29/25 01:00 Acetaminophen 650 mg Q6HP PRN PO 04/29/25 01:00 04/30/25 23:33 650 MG Sevelamer HCl 1,600 mg TIDWM PO 04/30/25 08:00 05/05/25 18:59 1,600 MG Carbidopa/Levodopa 1 tab Q8H PO 05/04/25 09:00 05/06/25 01:00 1 TAB Amlodipine Besylate 10 mg DAILY PO 05/06/25 10:00 Furosemide 40 mg BIDD PO 05/05/25 18:00 05/06/25 05:59 40 MG Losartan Potassium 50 mg DAILY PO 05/06/25 10:00 Laboratory Results Laboratory Tests 05/06/25 06:29 Chemistry Test 05/06/25 06:29 Calcium Level 8.9 mg/dL (8.7-10.4) Urinalysis Test 04/28/25 21:15 Urine Color Colorless (Yellow) Urine Clarity Clear (Clear) Urine pH 6.0 (5.0-9.0) Urine Specific [place] 1.012 (1.001-1.035) Urine Protein 3+ (Negative) H Urine Ketones Trace (Negative) Urine Blood 2+ /uL (Negative) H Urine Nitrite Negative (Negative) Urine Bilirubin Negative (Negative) Urine Urobilinogen Normal mg/dL (Negative) Urine Leukocyte Esterase Negative /uL (Negative) Urine RBC 2 /hpf (0 - 3) Urine Microscopic WBC < 1 /HPF (0-3) Urine Squamous Epithelial Cells Few /hpf (<5) Urine Amorphous Crystals Few /hpf (None Seen) Urine Bacteria None seen /hpf (None Seen) Urine Glucose Normal mg/dL (Normal) Labs and/or images reviewed: Labs reviewed by me, Image(s) reviewed by me Assessment/Plan Assessment/Plan Covering: # CKD stage 5; now ESRD; needing hemodialysis # Hypertensive kidney disease with ESRD # Diabetes mellitus type 2 with ESRD # Diabetic neuropathy # Hyperkalemia due to ESRD # Metabolic acidosis due to ESRD # Parkinson disease # Normocytic anemia; due to ESRD # Decreased vision; most likely due to diabetes mellitus type 2 # Severe azotemia # Parkinson disease # Morbid obesity No symptoms/signs of active bleeding Strict input and output measurements Hemodialysis as per Nephrology; right chest hemodialysis catheter placed by IR Continue furosemide by Nephrology Continue antihypertensive medications and adjust according to blood pressure measurements Continue insulin therapy and adjust according to blood glucose measurements Counseled the patient on the importance of adopting healthy lifestyle with diet and exercise in order to lose weight Suture Polisher consulted for discharge needs and to establish outpatient hemodialysis chair time Hepatitis panel results are negative; QuantiFERON gold results are pending Continue gabapentin Continue carbidopa/levodopa Advised to visit with Ophthalmology as outpatient Continue monitoring To be discharged when outpatient hemodialysis chair time is available Late Entry. This medical document was created using an electronic medical record system with computerized dictation system. Although this document has been carefully reviewed, there might still be some phonetic and typographical errors. These areas are purely typographical due to imperfections of the software programs, and do not reflect any compromise in the patient's medical care. Plan discussed with: Patient, Other (Nurse) My Orders Orders - GAIL ARMENDARIZ MD Procedure Category Date Status Time * Suture Polisher CONS 05/05/25 Transmitted Consult * Suture Polisher CONS 05/06/25 Transmitted Consult Basic Metabolic Panel LAB 05/07/25 Verified 04:00 Complete Blood Count LAB 05/07/25 Verified 04:00 Date of Service: May 06, 2025 Billing Provider: GAIL ARMENDARIZ MD Common Visit Codes: [id number] INP/OBS CARE(HIGH) GAIL ARMENDARIZ MD May 06, 2025 09:44
[2025-05-06] MEDS: LOSARTAN POTASSIUM 50 MG TAB PO SCH (11:59)
[2025-05-06 13:00] VITALS: BP 124/68; PULSE 84; RESP 19; TEMP 98.2; O2SAT 98
--- NOTE | 2025-05-06 16:43 | DVHPN2 ---
Progress Note Date Seen: May 06, 2025 Medical Necessity Reason Pt with a Central, PICC or Fol: Yes Subjective Patient reports: No new complaints, Feels better Review of Systems: HEENT:Normal, CVS:Normal, RESPIRATORY:Normal, GI:Normal, :Normal, MSK:Normal, NEURO:Normal Objective vital signs Vital Sign Date Time Temp Pulse Resp B/P (MAP) Pulse Ox O2 Delivery O2 Flow Rate FiO2 05/06/25 13:00 98.2 84 19 124/68 (86) 98 98.2 05/06/25 08:15 Room Air* 0 21 Total Intake and Output 05/05/25 05/05/25 05/06/25 14:59 22:59 06:59 Intake Total 1350 ml 210 ml Balance 1350 ml 210 ml medications Current Medications Medications Dose Ordered Sig/Nicol Route Start Time Stop Time Status Last Admin Dose Admin Gabapentin 100 mg DAILY PO 04/29/25 10:00 05/06/25 12:00 100 MG Hydralazine HCl 10 mg Q6HP PRN IV 04/29/25 01:00 05/04/25 05:18 10 MG Diagnostic Test (Pha) 1 strip Q6HR 04/29/25 06:00 05/06/25 12:00 1 STRIP Insulin Human Regular Q6HR SC 04/29/25 06:00 05/03/25 12:06 4 UNITS Dextrose 50 ml UD PRN IV 04/29/25 01:00 Ondansetron HCl 4 mg Q4HP PRN IV 04/29/25 01:00 Acetaminophen 650 mg Q6HP PRN PO 04/29/25 01:00 04/30/25 23:33 650 MG Sevelamer HCl 1,600 mg TIDWM PO 04/30/25 08:00 05/06/25 15:27 1,600 MG Carbidopa/Levodopa 1 tab Q8H PO 05/04/25 09:00 05/06/25 12:00 1 TAB Amlodipine Besylate 10 mg DAILY PO 05/06/25 10:00 05/06/25 12:00 10 MG Furosemide 40 mg BIDD PO 05/05/25 18:00 05/06/25 05:59 40 MG Losartan Potassium 50 mg DAILY PO 05/06/25 10:00 05/06/25 11:59 50 MG laboratory and microbiology Laboratory Tests 05/06/25 06:29 Test 05/06/25 06:29 Range/Units Serum Glucose 82 74-106 mg/dL Problem List/Assessment/Plan Problem List/Assessment/Plan Chronic kidney disease five now ESRD needing HD hyperkalemia metabolic acidosis Parkinsons disease anemia due to ckd Severe azotemia recs HD today Outpatient chair time arranged from nephrology standpoint ok for dc Plan discussed with: Patient My Orders My Orders Orders - MARTIN CRUZ MD Procedure Category Date Status Time Hemodialysis Orders ORDERS 05/06/25 Transmitted 09:16 Dietary Evaluation Review Comments: CCHO-60 Renal Specific Diet with 40g protein restriction Expected Outcomes/Goals: Avoid worsening of uremic syndrome controleed DM Gradual Wt loss MARTIN CRUZ MD May 06, 2025 16:43
[2025-05-06 17:00] VITALS: BP 131/85; PULSE 80; RESP 17; TEMP 97.2; O2SAT 99
[2025-05-06 20:00] VITALS: PULSE 87; RESP 16; O2SAT 99
[2025-05-06 21:28] VITALS: BP 130/90; PULSE 87; RESP 18; TEMP 98; O2SAT 99
[2025-05-07 01:05] VITALS: BP 132/75; PULSE 79; RESP 17; TEMP 98.7; O2SAT 98
[2025-05-07 06:46] LABS: Hemoglobin 8.2 g/dL (13.5-17.5); Nucleated Red Blood Cells % 0.0 %
[2025-05-07 06:50] LABS: Hematocrit 22.7 % (41.0-53.0); Mean Corpuscular Hemoglobin 31.6 pg (28.0-32.0); Mean Corpuscular Volume 87.2 fL (80.0-100.0)
[2025-05-07 06:51] LABS: Potassium 4.6 mmol/L (3.5-5.1)
[2025-05-07 06:52] LABS: Anion Gap 9 (5-15); Calcium 9.1 mg/dL (8.7-10.4); Carbon Dioxide 29 mmol/L (20-31)
[2025-05-07 06:57] LABS: Chloride 94 mmol/L (98-107); Glucose 75 mg/dL (74-106); Sodium 132 mmol/L (136-145)
[2025-05-07 06:58] LABS: BUN/Creatinine Ratio 8.7 (10.0-20.0)
[2025-05-07 07:01] LABS: Blood Urea Nitrogen 45 mg/dL (9-23)
[2025-05-07 09:07] VITALS: BP 142/81; PULSE 96; RESP 19; TEMP 97.6; O2SAT 99
[2025-05-07 13:28] VITALS: BP 132/80; PULSE 77; RESP 18; TEMP 98.4; O2SAT 100
--- NOTE | 2025-05-07 13:40 | DVHPN2 ---
Subjective Irish-speaking; staff translated; complained of lower abdominal pain Reviewed: Care Plan, H&P, Labs, Medications, Previous Orders, Radiology, Other (Consultation) Changes from previous H/P or p: Changes Objective Vitals Vital Signs Date Time Temp Pulse Resp B/P (MAP) Pulse Ox O2 Delivery O2 Flow Rate FiO2 05/07/25 13:28 98.4 77 18 132/80 (97) 100 98.4 05/07/25 08:05 Room Air* 0 21 Intake/Output Intake and Output 05/07/25 07:00 Intake Total 1700 ml Output Total 275 ml Balance 1425 ml Intake Oral 1700 ml Output Urine Total 275 ml # Voids 4 # Bowel Movements 1 General Appearance: Alert, Oriented X3, Cooperative HEENT: Atraumatic, Other (Decreased vision; can see fingers but can not read letters from 3 ft) Lungs: Clear to auscultation, Normal air movement Chest/Breasts: Other (Right chest hemodialysis catheter with no signs of bleeding/infection) Cardiovascular: Regular rate, Normal S1, Normal S2 Abdomen: Normal bowel sounds, Soft, No tenderness Neuro: Normal speech, Cranial nerves 3-12 NL Psych/Mental Status: Mental status NL, Mood NL Medications Current Medications Medications Dose Ordered Sig/Nicol Route Start Time Stop Time Status Last Admin Dose Admin Gabapentin 100 mg DAILY PO 04/29/25 10:00 05/07/25 09:10 100 MG Hydralazine HCl 10 mg Q6HP PRN IV 04/29/25 01:00 05/04/25 05:18 10 MG Diagnostic Test (Pha) 1 strip Q6HR 04/29/25 06:00 05/07/25 12:03 1 STRIP Insulin Human Regular Q6HR SC 04/29/25 06:00 05/07/25 12:02 2 UNITS Dextrose 50 ml UD PRN IV 04/29/25 01:00 Ondansetron HCl 4 mg Q4HP PRN IV 04/29/25 01:00 Acetaminophen 650 mg Q6HP PRN PO 04/29/25 01:00 04/30/25 23:33 650 MG Sevelamer HCl 1,600 mg TIDWM PO 04/30/25 08:00 05/07/25 12:03 1,600 MG Carbidopa/Levodopa 1 tab Q8H PO 05/04/25 09:00 05/07/25 09:09 1 TAB Amlodipine Besylate 10 mg DAILY PO 05/06/25 10:00 05/07/25 09:11 10 MG Furosemide 40 mg BIDD PO 05/05/25 18:00 05/07/25 06:05 40 MG Losartan Potassium 50 mg DAILY PO 05/06/25 10:00 05/07/25 09:11 50 MG Laboratory Results Laboratory Tests 05/07/25 06:00 Chemistry Test 05/07/25 06:00 Calcium Level 9.1 mg/dL (8.7-10.4) Urinalysis Test 04/28/25 21:15 Urine Color Colorless (Yellow) Urine Clarity Clear (Clear) Urine pH 6.0 (5.0-9.0) Urine Specific [place] 1.012 (1.001-1.035) Urine Protein 3+ (Negative) H Urine Ketones Trace (Negative) Urine Blood 2+ /uL (Negative) H Urine Nitrite Negative (Negative) Urine Bilirubin Negative (Negative) Urine Urobilinogen Normal mg/dL (Negative) Urine Leukocyte Esterase Negative /uL (Negative) Urine RBC 2 /hpf (0 - 3) Urine Microscopic WBC < 1 /HPF (0-3) Urine Squamous Epithelial Cells Few /hpf (<5) Urine Amorphous Crystals Few /hpf (None Seen) Urine Bacteria None seen /hpf (None Seen) Urine Glucose Normal mg/dL (Normal) Labs and/or images reviewed: Labs reviewed by me, Image(s) reviewed by me Assessment/Plan Assessment/Plan Covering: # CKD stage 5; now ESRD; needing hemodialysis # Hypertensive kidney disease with ESRD # Diabetes mellitus type 2 with ESRD # Diabetic neuropathy # Hyperkalemia due to ESRD # Metabolic acidosis due to ESRD # Parkinson disease # Normocytic anemia; due to ESRD # Decreased vision; most likely due to diabetes mellitus type 2 # Lower abdominal pain due to constipation # Severe azotemia # Parkinson disease # Morbid obesity KUB showed large stool burden; discharged on MiraLax along with senna-docusate No symptoms/signs of active bleeding Encouraged to measure weight daily Right chest hemodialysis catheter placed by IR Received hemodialysis yesterday; outpatient hemodialysis chair time was arranged to start tomorrow at 1:00 p.m.; the patient was instructed to be at [facility] at [facility] tomorrow; dialysis will be Tuesdays//Saturdays at 1:00 p.m. Discharged on furosemide Discharged on antihypertensive medications No antidiabetic medications upon discharge; needs to be re-evaluated by his PCP regarding treatment options for diabetes mellitus type 2 Counseled the patient on the importance of adopting healthy lifestyle with diet and exercise in order to lose weight Press Catcher arranged outpatient hemodialysis chair time Hepatitis panel results are negative; QuantiFERON gold results are negative Continue home gabapentin upon discharge Continue home carbidopa/levodopa upon discharge Advised to visit with Ophthalmology as outpatient To follow up with Dr. Armendariz in discharge clinic next Monday Late Entry. This medical document was created using an electronic medical record system with computerized dictation system. Although this document has been carefully reviewed, there might still be some phonetic and typographical errors. These areas are purely typographical due to imperfections of the software programs, and do not reflect any compromise in the patient's medical care. Plan discussed with: Patient, Other (Nurse) My Orders Orders - GAIL ARMENDARIZ MD Procedure Category Date Status Time Kub Abdomen Single XY 05/07/25 Logged View 11:00 Date of Service: May 07, 2025 Billing Provider: GAIL ARMENDARIZ MD Common Visit Codes: [id number] INP/OBS CARE(MOD) GAIL ARMENDARIZ MD May 07, 2025 13:40
[2025-05-07] MEDS ORDERED: LOSA-534 PO (13:46)
[2025-05-07] MEDS ORDERED: SEVE800T7 PO (13:46)
--- NOTE | 2025-05-07 13:50 | DVHDS2 ---
Discharge Summary Date of Admission Apr 29, 2025 at 04:56 Date of Discharge: May 07, 2025 Admitting Diagnosis Generalized weakness Wounds: Healing surgical of right chest hemodialysis catheter with no signs of bleeding/infection Labs/Diagnostic Data: Laboratory Results Test 05/07/25 11:31 05/07/25 06:00 05/02/25 12:14 05/01/25 14:29 POC Glucose 134 mg/dl (70-106) White Blood Count 6.7 10^3/uL (4.4-10.8) Red Blood Count 2.60 10^6/uL (4.5-5.90) Hemoglobin 8.2 g/dL (13.5-17.5) Hematocrit 22.7 % (41.0-53.0) Mean Corpuscular Volume 87.2 fL (80.0-100.0) Mean Corpuscular Hemoglobin 31.6 pg (28.0-32.0) Mean Corpuscular Hemoglobin Concent 36.2 g/dL (32.0-36.0) Red Cell Distribution Width 14.0 % (11.8-14.3) Platelet Count 172 10^3/uL (140-450) Mean Platelet Volume 6.8 fL (6.9-10.8) Neutrophils (%) (Auto) 56.2 % (37.0-80.0) Lymphocytes (%) (Auto) 29.3 % (10.0-50.0) Monocytes (%) (Auto) 11.1 % (0.0-12.0) Eosinophils (%) (Auto) 2.7 % (0.0-7.0) Basophils (%) (Auto) 0.7 % (0.0-2.0) Neutrophils # (Auto) 3.8 10 ^3/uL (1.6-8.6) Lymphocytes # (Auto) 2.0 10 ^3/uL (0.4-5.4) Monocytes # (Auto) 0.7 10 ^3/uL (0-1.3) Eosinophils # (Auto) 0.2 10 ^3/uL (0-0.8) Basophils # (Auto) 0 10 ^3/uL (0-0.2) Nucleated Red Blood Cells 0.0 % Sodium Level 132 mmol/L (136-145) Potassium Level 4.6 mmol/L (3.5-5.1) Chloride Level 94 mmol/L (98-107) Carbon Dioxide Level 29 mmol/L (20-31) Anion Gap 9 (5-15) Blood Urea Nitrogen 45 mg/dL (9-23) Creatinine 5.16 mg/dL (0.700-1.30) Glomerular Filtration Rate Calc 12 mL/min (>90) BUN/Creatinine Ratio 8.7 (10.0-20.0) Serum Glucose 75 mg/dL (74-106) Calcium Level 9.1 mg/dL (8.7-10.4) Total Bilirubin 0.4 mg/dL (0.2-1.0) Direct Bilirubin < 0.1 mg/dL (<0.3) Aspartate Amino Transferase (AST) 12 U/L (13-40) Alanine Aminotransferase (ALT) < 9 U/L (7-40) Alkaline Phosphatase 49 U/L (46-116) Total Protein 6.2 g/dL (5.7-8.2) Albumin 3.6 g/dL (3.2-4.8) TB Test (QFT) Gold Plus Negative (Negative) TB Test (QFT) Nil 0.02 IU/mL (.) TB Test (QFT) Mitogen >10.00 IU/mL (.) TB Test (QFT) Antigen 1 0.02 IU/mL (.) TB Test (QFT) Antigen 2 0.02 IU/mL (.) TB Test (QFT) Criteria Comment (.) Prothrombin Time 10.7 sec (9.3-11.8) Prothrombin Time INR 1.01 (0.9-1.15) Activated Partial Thromboplast Time 26.5 SEC (24.5-34.5) Test 05/01/25 06:03 04/30/25 06:10 04/29/25 00:40 04/28/25 21:15 Phosphorus Level 5.7 mg/dL (2.4-5.1) Hepatitis A IgM Antibody Negative Hepatitis B Surface Antigen Negative (Negative) Hepatitis B Core IgM Antibody Negative (Negative) Hepatitis C Antibody Negative (Negative) Creatine Kinase 167 U/L (46-171) Troponin I High Sensitivity 18 ng/L (</=54) Parathyroid Hormone (Intact) 216.7 pg/mL (18.4-80.1) Urine Color Colorless (Yellow) Urine Clarity Clear (Clear) Urine pH 6.0 (5.0-9.0) Urine Specific [place] 1.012 (1.001-1.035) Urine Protein 3+ (Negative) Urine Ketones Trace (Negative) Urine Blood 2+ /uL (Negative) Urine Nitrite Negative (Negative) Urine Bilirubin Negative (Negative) Urine Urobilinogen Normal mg/dL (Negative) Urine Leukocyte Esterase Negative /uL (Negative) Urine RBC 2 /hpf (0 - 3) Urine Microscopic WBC < 1 /HPF (0-3) Urine Squamous Epithelial Cells Few /hpf (<5) Urine Amorphous Crystals Few /hpf (None Seen) Urine Bacteria None seen /hpf (None Seen) Urine Glucose Normal mg/dL (Normal) Other Laboratory Tests 05/07/25 06:00 Brief Hx & Hospital Course: Covering: A 59 year old male patient; with multiple comorbidities; who presented to the emergency department with generalized weakness. Details as below, and as per EMR. # CKD stage 5; now ESRD; needing hemodialysis # Hyperphosphatemia due to ESRD # Hypertensive kidney disease with ESRD # Diabetes mellitus type 2 with ESRD # Diabetic neuropathy # Hyperkalemia due to ESRD # Metabolic acidosis due to ESRD # Parkinson disease # Normocytic anemia; due to ESRD # Decreased vision; most likely due to diabetes mellitus type 2 # Lower abdominal pain due to constipation # Severe azotemia causing generalized weakness # Parkinson disease # Morbid obesity KUB showed large stool burden; discharged on MiraLax along with senna-docusate No symptoms/signs of active bleeding Encouraged to measure weight daily Right chest hemodialysis catheter placed by IR Received hemodialysis yesterday; outpatient hemodialysis chair time was arranged to start tomorrow at 1:00 p.m.; the patient was instructed to be at [facility] at [facility] tomorrow; dialysis will be Tuesdays//Saturdays at 1:00 p.m. Discharged on furosemide Discharged on antihypertensive medications No antidiabetic medications upon discharge; needs to be re-evaluated by his PCP regarding treatment options for diabetes mellitus type 2 Counseled the patient on the importance of adopting healthy lifestyle with diet and exercise in order to lose weight Latin Dance Instructor arranged outpatient hemodialysis chair time Hepatitis panel results are negative; QuantiFERON gold results are negative Continue home gabapentin upon discharge Continue home carbidopa/levodopa upon discharge Advised to visit with Ophthalmology as outpatient To follow up with Dr. Armendariz in discharge clinic next Monday Late Entry. This medical document was created using an electronic medical record system with computerized dictation system. Although this document has been carefully reviewed, there might still be some phonetic and typographical errors. These areas are purely typographical due to imperfections of the software programs, and do not reflect any compromise in the patient's medical care. Consults/Reason for consult Nephrology for worsening renal function (MUMTAZ on CKD Stage V)//IR for hemodialysis catheter placement Condition at Discharge: Stable Final Diagnosis/Problems List New ESRD on hemodialysis Hyperphosphatemia due to ESRD Rest of diagnoses as above Discharge Disposition: Home Discharge Instruct/Medications Diet: Renal Activity: No Restrictions, As Tolerated Follow Up/Referral: Dr. Armendariz/Dr. Yadav at 3 pm on Monday05/12/2025 at [place] [id number]//Ophthalmology in 2 to 4 weeks//Nephrology in 2 to 4 weeks Medications: As per EMR; no DM2 medications Scheduled Amlodipine Besylate (Amlodipine Besylate), 1 TAB PO DAILY, (Reported) Gabapentin (Gabapentin), 1 CAP PO DAILY, (Reported) Levodopa W/Carbidopa (Sinemet 25/100MG), 1 TAB PO QID Losartan Potassium (Losartan Potassium), 50 MG PO DAILY Polyethylene Glycol 3350 (Miralax), 17 GM PO BID Sennosides-Docusate Sodium (Senokot S), 1 TAB PO BID Sevelamer Hydrochloride (Renagel), 1,600 MG PO TIDWM Discontinued Medications Amlodipine Besylate (Amlodipine Besylate), 1 TAB PO DAILY, (Reported) Atenolol (Tenormin Tablet), 1 TAB PO DAILY, (Reported) Dapagliflozin Propanediol (Farxiga), 5 MG PO DAILY, (Reported) Ergocalciferol (Vitamin D), 1 CAP PO QWEEKLY, (Reported) Lidocaine (Lidocaine), 1 PATCH TOP DAILY, (Reported) Selegiline HCl (Selegiline Hydrochloride), 1 TAB PO DAILY, (Reported) Semaglutide (Ozempic), 0.5 MG SC QWEEKLY, (Reported) Sitagliptin Phosphate (Januvia), 25 MG PO DAILY, (Reported) Discharge Statement: "Patient was advised to return to the ER or call 911 if any headaches, dizziness, shortness of breath, chest pain, abdominal pain, bleeding, fevers, or worsening of medical condition. Patient was counseled about treatment plan, medications, possible side effects, patientverbalized understanding. All questions were answered to the best of my ability. This discharge took greater then 30 minutes in planning, reviewing documentation, counseling the patient, and discussing with other team members." ASSESSMENT ASSESSMENT Assessment Date of Service: May 07, 2025 Billing Provider: GAIL ARMENDARIZ MD Common Visit Codes: [id number] DISCH DAY >30min GAIL ARMENDARIZ MD May 07, 2025 13:50
--- NOTE | 2025-05-07 14:17 | DVH ---
Date: 05/07/2025 01:34 PM Examination: XY KUB ABDOMEN SINGLE VIEW History: RLQ PAIN Comparison: US KIDNEY on DOS: 04/29/25, US KIDNEY on DOS: 08/17/24, CT CT AB PEL WO CON-NO ORAL OR IV o n DOS: 08/16/24 TECHNIQUE: Frontal views of the abdomen was obtained. FINDINGS: Bowel gas pattern is unremarkable. The lung bases are unremarkable. No acute osseous abnormality identified. IMPRESSION: Nonobstructive bowel gas pattern. Large stool burden
[2025-05-07] MEDS ORDERED: POLY335015 PO (14:29)
[2025-05-07] MEDS ORDERED: SENN-62 PO (14:29)
--- NOTE | 2025-05-07 16:55 | DVHPN2 ---
Progress Note Date Seen: May 07, 2025 Medical Necessity Reason Pt with a Central, PICC or Fol: Yes Subjective Patient reports: No new complaints, Feels better Review of Systems: Deferred Objective vital signs Vital Sign Date Time Temp Pulse Resp B/P (MAP) Pulse Ox O2 Delivery O2 Flow Rate FiO2 05/07/25 13:28 98.4 77 18 132/80 (97) 100 98.4 05/07/25 08:05 Room Air* 0 21 Total Intake and Output 05/06/25 05/06/25 05/07/25 15:00 23:00 07:00 Intake Total 0 ml 1000 ml 700 ml Output Total 275 ml Balance 0 ml 1000 ml 425 ml medications Current Medications Medications Dose Ordered Sig/Nicol Route Start Time Stop Time Status Last Admin Dose Admin Gabapentin 100 mg DAILY PO 04/29/25 10:00 05/07/25 09:10 100 MG Hydralazine HCl 10 mg Q6HP PRN IV 04/29/25 01:00 05/04/25 05:18 10 MG Diagnostic Test (Pha) 1 strip Q6HR 04/29/25 06:00 05/07/25 12:03 1 STRIP Insulin Human Regular Q6HR SC 04/29/25 06:00 05/07/25 12:02 2 UNITS Dextrose 50 ml UD PRN IV 04/29/25 01:00 Ondansetron HCl 4 mg Q4HP PRN IV 04/29/25 01:00 Acetaminophen 650 mg Q6HP PRN PO 04/29/25 01:00 04/30/25 23:33 650 MG Sevelamer HCl 1,600 mg TIDWM PO 04/30/25 08:00 05/07/25 12:03 1,600 MG Carbidopa/Levodopa 1 tab Q8H PO 05/04/25 09:00 05/07/25 09:09 1 TAB Amlodipine Besylate 10 mg DAILY PO 05/06/25 10:00 05/07/25 09:11 10 MG Furosemide 40 mg BIDD PO 05/05/25 18:00 05/07/25 06:05 40 MG Losartan Potassium 50 mg DAILY PO 05/06/25 10:00 05/07/25 09:11 50 MG Examination: GENERAL:Normal, HEENT:Normal, NECK:Normal, LUNGS:Normal, CVS:Normal, ABDOMEN:Normal, MSK:Normal, SKIN:Normal, NEURO:Normal, :Normal laboratory and microbiology Laboratory Tests 05/07/25 06:00 Test 05/07/25 06:00 Range/Units Serum Glucose 75 74-106 mg/dL Problem List/Assessment/Plan Problem List/Assessment/Plan Chronic kidney disease five now ESRD needing HD hyperkalemia metabolic acidosis Parkinsons disease anemia due to ckd Severe azotemia recs HD tomorrow if still here otherwise resume outpt HD Outpatient chair time arranged from nephrology standpoint ok for nc Plan discussed with: Patient Dietary Evaluation Review Comments: CCHO-60 Renal Specific Diet with 40g protein restriction Expected Outcomes/Goals: Avoid worsening of uremic syndrome controleed DM Gradual Wt loss MARTIN CRUZ MD May 07, 2025 16:55
[2025-05-07 17:00] VITALS: BP 146/74; PULSE 82; RESP 19; TEMP 97.7; O2SAT 98
== END 2025-05-07 18:28 | disposition home or self-care (01) | DRG 425 ==
LOC: ER 20:59 → UNDOADMIN 04-29 00:59 → CENTRAL 04-29 00:59 → OVERFLOW 04-29 04:56 → EAST 04-29 17:03
PROVIDERS: ADMIT Internal Medicine; ATTEND Internal Medicine
PROC: 0JH63XZ Insertion of Tunneled Vascular Access Device into Chest Subcutaneous Tissue and Fascia, Percutaneous Approach (ICD-10-PCS; principal; 2025-05-02)
PROC: 02H633Z Insertion of Infusion Device into Right Atrium, Percutaneous Approach (ICD-10-PCS; 2025-05-02)
PROC: B5181ZA Fluoroscopy of Superior Vena Cava using Low Osmolar Contrast, Guidance (ICD-10-PCS; 2025-05-02)
PROC: B548ZZA Ultrasonography of Superior Vena Cava, Guidance (ICD-10-PCS; 2025-05-02)
PROC: 5A1D70Z Performance of Urinary Filtration, Intermittent, Less than 6 Hours Per Day (ICD-10-PCS; 2025-05-03)
PROC: 5A1D70Z Performance of Urinary Filtration, Intermittent, Less than 6 Hours Per Day (ICD-10-PCS; 2025-05-04)
PROC: 5A1D70Z Performance of Urinary Filtration, Intermittent, Less than 6 Hours Per Day (ICD-10-PCS; 2025-05-06)
DX: E87.5 Hyperkalemia (principal); N17.0 Acute kidney failure with tubular necrosis; E87.20 Acidosis, unspecified; I12.0 Hypertensive chronic kidney disease with stage 5 chronic kidney disease or end stage renal disease; D63.1 Anemia in chronic kidney disease; E83.39 Other disorders of phosphorus metabolism; N18.6 End stage renal disease; E11.22 Type 2 diabetes mellitus with diabetic chronic kidney disease; G20.B1 Parkinson's disease with dyskinesia, without mention of fluctuations; H54.7 Unspecified visual loss; E66.01 Morbid (severe) obesity due to excess calories; E11.40 Type 2 diabetes mellitus with diabetic neuropathy, unspecified; K59.00 Constipation, unspecified; Z79.899 Other long term (current) drug therapy; Z99.2 Dependence on renal dialysis; Z87.441 Personal history of nephrotic syndrome; Z68.26 Body mass index [BMI] 26.0-26.9, adult
CPT/HCPCS: 36415; 71045; 74018; 76775; 80048; 80074; 80076; 81001; 82550; 82962; 83970; 84100; 84484; 85025; 85610; 85730; 90935; 93005; 96365; 96375; 99152; 99291; C1894; G0378; J1815; J2250

== ENCOUNTER → 2025-08-01 | Outpatient (CLI) | payer MEDICAID ==
[~2025-08-01] MED LIST changes: -ATE50T PO; -DAPA1TAB4 PO; -ERGO1CAP12 PO; -LIDO1PAD55 TOP; +LOSA-534 PO; +POLY335015 PO; -SELE5TAB8 PO; -SEMA2INJ3 SC; +SENN-62 PO; +SEVE800T7 PO; -SITA50TA PO
[2025-08-01 08:46] LABS: Hematocrit 36.2 % (41.0-53.0); Hemoglobin 11.8 g/dL (13.5-17.5); Mean Corpuscular Hemoglobin 29.0 pg (28.0-32.0); Mean Corpuscular Volume 88.8 fL (80.0-100.0); Nucleated Red Blood Cells % 0.1 %
[2025-08-01 09:32] LABS: Urine Protein, UAD 3+ (Negative)
[2025-08-01 09:46] LABS: Albumin 4.6 g/dL (3.2-4.8); Alkaline Phosphatase 75 U/L (46-116); Anion Gap 14 (5-15); BUN/Creatinine Ratio 6.1 (10.0-20.0); Calcium 9.2 mg/dL (8.7-10.4); Carbon Dioxide 27 mmol/L (20-31); Magnesium 2.2 mg/dL (1.6-2.6); Sodium 139 mmol/L (136-145); Total Protein 8.0 g/dL (5.7-8.2)
[2025-08-01 10:39] LABS: Alanine Aminotransferase < 9 U/L (7-40); Bilirubin, Total 0.2 mg/dL (0.2-1.0); Blood Urea Nitrogen 48 mg/dL (9-23); Chloride 98 mmol/L (98-107); Glucose 74 mg/dL (74-106); Potassium 5.3 mmol/L (3.5-5.1)
== END | disposition home or self-care (01) ==
LOC: LAB 08:27
PROVIDERS: ATTEND Internal Medicine
DX: I13.11 Hypertensive heart and chronic kidney disease without heart failure, with stage 5 chronic kidney disease, or end stage renal disease (principal); E11.22 Type 2 diabetes mellitus with diabetic chronic kidney disease; N18.6 End stage renal disease; G20.A1 Parkinson's disease without dyskinesia, without mention of fluctuations
CPT/HCPCS: 36415; 80053; 81001; 83036; 83735; 84443; 85025